=== PATIENT | male | born 1980 | race Caucasian/White ===

== ENCOUNTER → 2025-01-23 13:14 | Outpatient (REF) | payer MEDICARE, SELFPAY | LOC: RAD 13:14 | PROVIDERS: ATTENDING PHYSICIAN Emergency Medicine | DX: S93.492A Sprain of other ligament of left ankle, initial encounter (principal) | CPT/HCPCS: 73610 ==

== ENCOUNTER 2025-02-02 20:09 | Emergency (ER) | payer MEDICARE, MEDICAID, SELFPAY ==
[2025-02-02 20:17] VITALS: BP 129/80
--- NOTE | 2025-02-02 22:10 | ED.GENMED ---
History of Present Illness
General
Chief Complaint: Back Pain
Source: patient and health careers instructor
Time Seen by Provider: 02/02/25 21:24
History of Present Illness
History of Present Illness:
44-year-old male history of Down syndrome. Somewhat of a poor historian. Complaining of vague intermittent back pain. Apparently pain is worse with coughing. Not describing pain currently. No abdominal pain nausea vomiting fever urinary
symptoms or other complaints
Past History
Past History
ED Past Medical History: Hyperthyroidism and Other (Down syndrome)
ED Past Surgical History: None and Tonsilectomy
Social History
Tobacco: Non-smoker
Review of Systems
Review of Systems
All Other Systems: Not applicable
Constitutional: Denies fever
ABD/GI: Denies abdominal pain
: Reports no symptoms
Phy Exam
Physical Exam
Physical Exam:
GENERAL: Alert. Sequelae of Down syndrome
EYE: Orbits normal.
NECK: Supple
CARDIAC: Regular rate and rhythm without any obvious murmurs.
LUNGS: Clear breath sounds,normal
ABDOMEN: Soft, without focal tenderness or distention. No abdominal masses or pulsatile masses
NEUROLOGICAL: Alert and oriented , grossly non-focal
SKIN: Warm and dry, no rash or lesion, no discoloration, skin intact.
MUSCULOSKELETAL: No edema,no deformity.Good color. No lumbar tenderness. Gait is normal. No apparent pain with flexion. No CVA tenderness
PSYCH: Normal and appropriate interaction.
Course
Orders/Labs/Results
Orders:
Orders
02/02/25 21:33
CT Abd/pel Without Iv Or Oral Urgent
Comment:
Reason For Exam: Right lower back pain
02/02/25 22:19
CT Chest W/o Iv Contrast Urgent
Comment:
Reason For Exam: Mass/infiltrate by abdominal CT
02/02/25 23:11
Urinalysis Reflex To Culture Urgent
Date Specimen was Collected: 02/02/25
Time Specimen was Collected: 21:53
Urine Microscopic Reflex Cult Urgent
Abnormal Lab Results
02/02/25
23:11
Urine Ketones 3+ A
(Negative)
Urine Albumin (Reflex) 1+ A
(Neg - Trace)
Vital Signs
Initial and Last Documented VS:
Initial Vital Signs
Temp Pulse Resp BP Pulse Ox
98.7 F 101 17 129/80 99
02/02/25 20:17 02/02/25 20:17 02/02/25 20:17 02/02/25 20:17 02/02/25 20:17
Last Documented Vital Signs
Temp Pulse Resp BP Pulse Ox
98.7 F 101 17 129/80 99
02/02/25 20:17 02/02/25 20:17 02/02/25 20:17 02/02/25 20:17 02/02/25 20:17
MDM/Problems Addressed
Differential Diagnosis Includes:
Low suspicion for nonmuscular etiology of back pain. However patient is somewhat of a poor historian. Not clearly positional. Will check urine and CT for kidney stone. Highly doubt vascular issue.
*Radiology
Radiology exam reviewed: radiology read reviewed (Right lower lobe pneumonia)
*Pulse Oximetry
Patient hypoxic: no
*Critical Care Note
Total Time (30-74mins, 75-104mins- exclusive of procedures): Not Applicable
Update Note
Update Note:
Patient with right lower lobe pneumonia. He apparently has been coughing. This likely explains his back pain. Is in no respiratory distress and is nontoxic. Very reasonable for outpatient management. Will start dual coverage to cover atypicals
and atypicals
ED Attending Note
-
Portions of this chart may have been created with voice recognition software.� Occasional wrong word or��sound alike� substitutions may have occurred due to the inherent limitations of voice recognition software.
Discharge Plan
Departure
Patient Disposition: Home (Routine Discharge)
Date of Disposition: 02/02/25
Time of Disposition: 23:34
Patient with high blood pressure during this ER visit?: Yes
Discharge Problem:
Right lower lobe pneumonia, Back pain
Instructions: Low Back Pain (DC), Pneumonia in adults - Discharge instructions, BLOOD PRESSURE
Prescriptions:
New
cefdinir 300 mg capsule
300 mg PO BID 10 Days Qty: 20 0RF
azithromycin [Zithromax] 250 mg tablet
250 mg PO DAILY Qty: 4 0RF
No Action
amoxicillin-pot clavulanate 1 TABLET tablet
1 tab PO Q12 Qty: 14 0RF
Referrals:
Susie Cabrera, [Family Provider] - Follow up in 2-3 days
Activity Restrictions/Additional Instructions:
Get a chest x-ray done 2 to 4 weeks from now to make sure this has resolved
Interventions
Interventions:
*Risk Screen - Suicide Last Done: 02/02/25 20:23
*General Assessment Last Done: 02/02/25 20:21
*Neglect/Abuse Screening Last Done: 02/02/25 20:23
*ED COVID-19 Vaccine History Last Done: 02/02/25 20:23
ED-Musculoskeletal Assessment Last Done: 02/02/25 21:23
Discharge Date and Time
Print Language: BULGARIAN
[2025-02-02 23:15] LABS: Urine Albumin 1+ (Neg - Trace); Urine Bilirubin Negative (Negative); Urine Character Clear (Clear); Urine Color Yellow; Urine Glucose Negative (Negative); Urine Ketone 3+ (Negative); Urine Leukocyte Negative (Negative); Urine Nitrite Negative (Negative); Urine Occult Blood Negative (Negative); Urine Urobilinogen Negative (Neg - 1+)
[2025-02-02 23:46] LABS: Urine Mucus Few
[2025-02-02] MEDS: ZITHROMAX 500 MG PO (23:47)
[2025-02-02] MEDS: OMNICEF 300 MG PO (23:47)
[2025-02-02 23:55] LABS: Urine Bacteria Moderate (Negative)
[2025-02-03 00:01] VITALS: BP 119/67
== END 2025-02-03 00:04 | disposition home or self-care (01) ==
LOC: EMR 20:09
PROVIDERS: EMERGENCY PHYSICIAN Emergency Medicine; FAMILY PHYSICIAN Family Medicine
DX: J18.9 Pneumonia, unspecified organism (principal); M54.9 Dorsalgia, unspecified; R03.0 Elevated blood-pressure reading, without diagnosis of hypertension; Q90.9 Down syndrome, unspecified
CPT/HCPCS: 99285; 71250; 74176; 81003; 81015; 87086

== ENCOUNTER 2025-02-04 08:33 | Inpatient (IN) | payer MEDICARE, MEDICAID, SELFPAY ==
[2025-02-04] VITALS (16 sets, daily range): BP systolic 89–163; BP diastolic 48–84; BMI 25.1
--- NOTE | 2025-02-04 05:05 | ED.GENMED ---
History of Present Illness
<Tierney Rhodes PA-C - Last Filed: 02/04/25 06:16>
General
Chief Complaint: Abdominal Pain
Source: patient
Exam Limitations: none
Time Seen by Provider: 02/04/25 05:04
Nursing documentation reviewed up to this point in time: agreed with
History of Present Illness
History of Present Illness:
44-year-old male with past medical history of Down syndrome, ADHD, GERD, gout, hypothyroidism, hypercholesterolemia presents emergency department today with concerns of right upper quadrant pain starting at 4:30 AM this morning. Of note, patient
had similar pain that would radiate to the to the right upper back starting 2 days ago with associated cough. He was seen in our emergency department and was found to have a right lower lobe infiltrate and started on cefdinir and azithromycin.
Patient is a limited historian and history primarily given by stitcher special machine. Machining Associate reports that patient has had this cough for few days now and as well as intermittent vague back pain that is worse with coughing. Patient did seem to complain of
occasional radiation to the abdomen at that time but caregiver states that the pain today awoken patient from sleep and he started to have some crying as well. Patient has not had any nausea or vomiting, diarrhea or constipation, he has no history
of prior abdominal surgeries, there is no one in the house who has similar symptoms. He has had no fevers or chills. He has had no chest pain or shortness of breath. He never had anything like this before according to caregiver. Caregiver denies
any medications other than the antibiotics. Of note, patient does have a family history of early coronary artery disease. Patient denies any upper back pain at this time.
Past History
<Tierney Rhodes PA-C - Last Filed: 02/04/25 06:16>
Past History
ED Past Medical History: Hyperthyroidism and Other (Down syndrome)
ED Past Surgical History: None and Tonsilectomy
Social History
Tobacco: Non-smoker
Review of Systems
<Tierney Rhodes PA-C - Last Filed: 02/04/25 06:16>
Review of Systems
All Other Systems: ROS reviewed and negative except as documented in HPI and ROS
Phy Exam
<Tierney Rhodes PA-C - Last Filed: 02/04/25 06:16>
Physical Exam
Physical Exam:
General: Patient appears uncomfortable secondary to pain; patient does not answer my questions, no speech currently
Skin: Warm and dry, no rashes or lesions
Head: Normocephalic, atraumatic
Eyes: Sclera non-icteric. EOMs intact.
Cardiac: Patient mildly tachycardic otherwise regular rhythm, no murmurs, no tenderness palpation of external chest wall
Peripheral Vascular: No lower extremity swelling or edema
Pulm: Normal respiratory effort, no wheezes, rales, or rhonchi
Abdomen: Right upper quadrant tenderness palpation with no guarding, no rebound tenderness, no palpable abdominal mass
Neuro: CN II-XII intact, no focal neurologic deficits.
Psychiatric: Appropriate mood and affect.
Course
<Tierney Rhodes PA-C - Last Filed: 02/04/25 06:16>
Orders/Labs/Results
Orders:
Orders
02/04/25 05:11
Ketorolac [Toradol] 15 mg IV NOW STA
02/04/25 05:12
Ondansetron Injectable [Zofran] 4 mg .ROUTE .STK-MED ONE
Ondansetron Injectable [Zofran] 4 mg IV NOW STA
02/04/25 05:17
Complete Blood Count/With Diff Urgent
Comprehensive Metabolic Panel Urgent
Lipase Urgent
02/04/25 05:19
Electrocardiogram (*1) Urgent
Reason for Study: Abdominal Pain
EKG- Treatment ONCE
02/04/25 05:20
US Abdomen Complete/Upper Urgent
Comment:
Reason For Exam: right upper quad pain, attn to gallbladder, kn sto
02/04/25 05:24
COVID-19 Antigen Urgent
Source: Nasal Swab
Troponin I Urgent
Influenza A+B Rapid Molecular Urgent
ALEXEY Source: Nasal Swab
Specimen Description:
02/04/25 05:52
0.9% Sodium Chloride 1000 ml [Nss] 1,000 ml IV BOLUS
02/04/25 05:55
CT Chest PE Study Urgent
Comment:
Reason For Exam: ruq pain, tachycardia
02/04/25 06:29
Urinalysis Reflex To Culture Urgent
Date Specimen was Collected: 02/04/25
Time Specimen was Collected: 06:22
Urine Microscopic Reflex Cult Urgent
Urine Culture Urgent
ALEXEY Source: U
Specimen Description:
Date Specimen was Collected: 02/04/25
Time Specimen was Collected: 06:22
02/04/25 07:18
Cefepime HCl [Maxipime] 2,000 mg IV NOW STA
Vancomycin 1 Gram/200 ml [Vancocin] 1 gram in 200 ml IV NOW
02/04/25 07:22
Lactated Ringers [Lr] 1,000 ml IV BOLUS
02/04/25 07:33
Blood Culture Q30M
ALEXEY Source: Blood/Venous
Specimen Description:
02/04/25 07:35
Lactic Acid Urgent
Blood Culture Q30M
ALEXEY Source: Blood/Venous
Specimen Description:
Abnormal Lab Results
02/04/25 02/04/25
05:17 06:29
WBC 13.3 H 10^3/uL
(4.8-10.8)
RBC 4.43 L 10^6/uL
(4.70-6.10)
MCH 31.2 H pg
(27.0-31.0)
Plt Count 548 H 10^3/uL
(130-400)
Abs Immat Gran (auto) 0.1 H 10^3/uL
(0-0.05)
Absolute Neuts (auto) 9.2 H 10^3/uL
(1.4-6.5)
Absolute Monos (auto) 1.1 H 10^3/uL
(0.1-0.6)
Glucose 154 H mg/dl
(70-99)
Urine Ketones 2+ A
(Negative)
Urine Bacteria (Reflex) Moderate A
(Negative)
Urine Albumin (Reflex) 2+ A
(Neg - Trace)
02/04/25 05:17
02/04/25 05:17
Vital Signs
Initial and Last Documented VS:
Initial Vital Signs
Temp Pulse Resp BP Pulse Ox
98.1 F 114 24 163/84 95
02/04/25 04:56 02/04/25 04:56 02/04/25 04:56 02/04/25 04:56 02/04/25 04:56
Last Documented Vital Signs
Temp Pulse Resp BP Pulse Ox
98.1 F 98 30 102/68 96
02/04/25 04:56 02/04/25 07:45 02/04/25 07:45 02/04/25 07:24 02/04/25 07:45
<Wendy Perez, DO - Last Filed: 02/04/25 06:12>
Orders/Labs/Results
Orders:
Orders
02/04/25 05:11
Ketorolac [Toradol] 15 mg IV NOW STA
02/04/25 05:12
Ondansetron Injectable [Zofran] 4 mg .ROUTE .STK-MED ONE
Ondansetron Injectable [Zofran] 4 mg IV NOW STA
02/04/25 05:17
Complete Blood Count/With Diff Urgent
Comprehensive Metabolic Panel Urgent
Lipase Urgent
02/04/25 05:19
Electrocardiogram (*1) Urgent
Reason for Study: Abdominal Pain
EKG- Treatment ONCE
02/04/25 05:20
US Abdomen Complete/Upper Urgent
Comment:
Reason For Exam: right upper quad pain, attn to gallbladder, kn sto
02/04/25 05:24
COVID-19 Antigen Urgent
Source: Nasal Swab
Troponin I Urgent
Influenza A+B Rapid Molecular Urgent
ALEXEY Source: Nasal Swab
Specimen Description:
02/04/25 05:52
0.9% Sodium Chloride 1000 ml [Nss] 1,000 ml IV BOLUS
02/04/25 05:55
CT Chest PE Study Urgent
Comment:
Reason For Exam: ruq pain, tachycardia
02/04/25 06:29
Urinalysis Reflex To Culture Urgent
Date Specimen was Collected: 02/04/25
Time Specimen was Collected: 06:22
Urine Microscopic Reflex Cult Urgent
Urine Culture Urgent
ALEXEY Source: U
Specimen Description:
Date Specimen was Collected: 02/04/25
Time Specimen was Collected: 06:22
02/04/25 07:18
Cefepime HCl [Maxipime] 2,000 mg IV NOW STA
Vancomycin 1 Gram/200 ml [Vancocin] 1 gram in 200 ml IV NOW
02/04/25 07:22
Lactated Ringers [Lr] 1,000 ml IV BOLUS
02/04/25 07:33
Blood Culture Q30M
[facility]EX[facility]Y Source: Blood/Venous
Specimen Description:
02/04/25 07:35
Lactic Acid Urgent
Blood Culture Q30M
[facility]EXEY Source: Blood/Venous
Specimen Description:
Abnormal Lab Results
02/04/25 02/04/25
05:17 06:29
WBC 13.3 H 10^3/uL
(4.8-10.8)
RBC 4.43 L 10^6/uL
(4.70-6.10)
MCH 31.2 H pg
(27.0-31.0)
Plt Count 548 H 10^3/uL
(130-400)
Abs Immat Gran (auto) 0.1 H 10^3/uL
(0-0.05)
Absolute Neuts (auto) 9.2 H 10^3/uL
(1.4-6.5)
Absolute Monos (auto) 1.1 H 10^3/uL
(0.1-0.6)
Glucose 154 H mg/dl
(70-99)
Urine Ketones 2+ A
(Negative)
Urine Bacteria (Reflex) Moderate A
(Negative)
Urine Albumin (Reflex) 2+ A
(Neg - Trace)
02/04/25 05:17
02/04/25 05:17
Vital Signs
Initial and Last Documented VS:
Initial Vital Signs
Temp Pulse Resp BP Pulse Ox
98.1 F 114 24 163/84 95
02/04/25 04:56 02/04/25 04:56 02/04/25 04:56 02/04/25 04:56 02/04/25 04:56
Last Documented Vital Signs
Temp Pulse Resp BP Pulse Ox
98.1 F 98 30 102/68 96
02/04/25 04:56 02/04/25 07:45 02/04/25 07:45 02/04/25 07:24 02/04/25 07:45
<LASHAWN Foy Jr.C - Last Filed: 02/04/25 07:49>
Orders/Labs/Results
Orders:
Orders
02/04/25 05:11
Ketorolac [Toradol] 15 mg IV NOW STA
02/04/25 05:12
Ondansetron Injectable [Zofran] 4 mg .ROUTE .STK-MED ONE
Ondansetron Injectable [Zofran] 4 mg IV NOW STA
02/04/25 05:17
Complete Blood Count/With Diff Urgent
Comprehensive Metabolic Panel Urgent
Lipase Urgent
02/04/25 05:19
Electrocardiogram (*1) Urgent
Reason for Study: Abdominal Pain
EKG- Treatment ONCE
02/04/25 05:20
US Abdomen Complete/Upper Urgent
Comment:
Reason For Exam: right upper quad pain, attn to gallbladder, kn sto
02/04/25 05:24
COVID-19 Antigen Urgent
Source: Nasal Swab
Troponin I Urgent
Influenza A+B Rapid Molecular Urgent
[facility]EY Source: Nasal Swab
Specimen Description:
02/04/25 05:52
0.9% Sodium Chloride 1000 ml [Nss] 1,000 ml IV BOLUS
02/04/25 05:55
CT Chest PE Study Urgent
Comment:
Reason For Exam: ruq pain, tachycardia
02/04/25 06:29
Urinalysis Reflex To Culture Urgent
Date Specimen was Collected: 02/04/25
Time Specimen was Collected: 06:22
Urine Microscopic Reflex Cult Urgent
Urine Culture Urgent
ALEXEY Source: U
Specimen Description:
Date Specimen was Collected: 02/04/25
Time Specimen was Collected: 06:22
02/04/25 07:18
Cefepime HCl [Maxipime] 2,000 mg IV NOW STA
Vancomycin 1 Gram/200 ml [Vancocin] 1 gram in 200 ml IV NOW
02/04/25 07:22
Lactated Ringers [Lr] 1,000 ml IV BOLUS
02/04/25 07:33
Blood Culture Q30M
[facility] Source: Blood/Venous
Specimen Description:
02/04/25 07:35
Lactic Acid Urgent
Blood Culture Q30M
[facility] Source: Blood/Venous
Specimen Description:
Abnormal Lab Results
02/04/25 02/04/25
05:17 06:29
WBC 13.3 H 10^3/uL
(4.8-10.8)
RBC 4.43 L 10^6/uL
(4.70-6.10)
MCH 31.2 H pg
(27.0-31.0)
Plt Count 548 H 10^3/uL
(130-400)
Abs Immat Gran (auto) 0.1 H 10^3/uL
(0-0.05)
Absolute Neuts (auto) 9.2 H 10^3/uL
(1.4-6.5)
Absolute Monos (auto) 1.1 H 10^3/uL
(0.1-0.6)
Glucose 154 H mg/dl
(70-99)
Urine Ketones 2+ A
(Negative)
Urine Bacteria (Reflex) Moderate A
(Negative)
Urine Albumin (Reflex) 2+ A
(Neg - Trace)
02/04/25 05:17
02/04/25 05:17
Vital Signs
Initial and Last Documented VS:
Initial Vital Signs
Temp Pulse Resp BP Pulse Ox
98.1 F 114 24 163/84 95
02/04/25 04:56 02/04/25 04:56 02/04/25 04:56 02/04/25 04:56 02/04/25 04:56
Last Documented Vital Signs
Temp Pulse Resp BP Pulse Ox
98.1 F 98 30 102/68 96
02/04/25 04:56 02/04/25 07:45 02/04/25 07:45 02/04/25 07:24 02/04/25 07:45
<Tierney Rhodes PA-C - Last Filed: 02/04/25 06:16>
MDM/Problems Addressed
Differential Diagnosis Includes:
Pleurisy secondary to pneumonia, PE, cholecystitis, biliary colic, ACS, gastritis, pancreatitis
MDM/Problems Addressed:
US of the abdomen and CT PE study pending
6:16 AM--case signed out to Chepe Gonzalez PA-C
Chronic conditions affecting care:
GERD, hypothyroidism, ADHD, down syndrome
<Tierney Rhodes PA-C - Last Filed: 02/04/25 06:16>
*Pulse Oximetry
Patient hypoxic: no
*EKG
Interpreted by ED Provider?: Yes
EKG Intrepretation Date: 02/04/25
Interpretation: abnormal
Comparison EKG: no comparison EKG present
Heart Rate: 116
Rate: tachycardiac
Rhythm: sinus
Barron: normal axis
Interval: normal interval
QRS Pattern: normal QRS
Ischemia: no ischemia
*Risk Control Analyst Interpretation
Rate: tachycardiac
Interpretation: abnormal
Heart Rate: 110
Rhythm: sinus
*Critical Care Note
Total Time (30-74mins, 75-104mins- exclusive of procedures): Not Applicable
Data Reviewed
Review of Other/Old Records Reveals: Records
<Tierney Rhodes PA-C - Last Filed: 02/04/25 06:16>
Update Note
Update Note:
5:50 AM--Patient does appear markedly more comfortable with toradol
<Chepe Gonzalez Jr., PA-C - Last Filed: 02/04/25 07:49>
Update Note
Update Note:
5:50 AM--Patient does appear markedly more comfortable with toradol
7:20 ES///: Patient CT report showing severe pneumonia with abscess. Patient was started on IV antibiotics plan to admit. Blood pressure did drop into the 80s systolic. He was given additional liter of fluid with improving blood pressure into the
100s. Patient in no distress at time of reassessment. Heart rate in the 90s. Blood cultures and lactic acid sent prior to antibiotics.
ED Attending Note
<Tierney Rhodes PA-C - Last Filed: 02/04/25 06:16>
-
Portions of this chart may have been created with voice recognition software.� Occasional wrong word or��sound alike� substitutions may have occurred due to the inherent limitations of voice recognition software.
<Wendy Perez DO - Last Filed: 02/04/25 06:12>
ED Attending Note
Patient seen and examined by attending physician: Yes
I performed a history and physical exam of patient and discussed management with resident, I reviewed resident's note and agree with documented findings and plan of care.: Yes
ED Attending Note:
This is a 44-year-old gentleman with history of Down syndrome, ADD, GERD, hypothyroidism, hyperlipidemia, gout.
Evaluated in this ED evening of February 02 with complaints of intermittent right-sided back pain, and intermittent cough. Back pain worsens with cough.
Noncontrast CT of the chest as well as CT of the abdomen and pelvis yesterday revealed right lower lobe pneumonia. Incidental 3 mm intrarenal stones bilaterally.
Discharged to home with prescription for Zithromax and cefdinir.
Returns this morning after waking around 430 with cough, right upper quadrant pain. He arrives accompanied by a stitcher special machine.
Intermittent cough with gagging but no reported vomiting. Appetite has been good.
Due to intellectual disabilities, history is markedly limited.
Home medications include: Levothyroxine, Concerta, vitamin D/vitamin C, omeprazole.
44-year-old gentleman with typical Down's features. He is awake and alert, follows some simple commands. Intermittently verbal�stuttering speech, appears to be somewhat preoccupied with bilateral lower extremities, pointing to mild discrepancy in
vague brownish discoloration of left anterior james that is mildly more pronounced than right anterior james.
Intermittent cough is noted but no respiratory distress.
Borderline low-grade fever, sinus tachycardia noted, mild systolic hypertension.
Lungs with decreased breath sounds right base with fine crackles right base.
Abdomen is soft without appreciable tenderness. Mild tenderness to palpation right anterolateral distal costal margin.
I suspect right upper quadrant pain related to right lower lobe pneumonia but must consider right ureteric stone/right hydronephrosis.
Other consideration is ACS, biliary colic, pancreatitis, gastroenteritis/adverse reaction to oral antibiotics.
CAT scan images from yesterday reviewed, moderate wedge-shaped/pleural based right lower lobe infiltrate. Thus concern for PE with pulmonary infarct.
Patient has been medicated for pain and nausea, will initiate IV fluids, will plan for abdominal ultrasound and plan for CT of the chest/PE study.
Labs are pending.
EKG shows sinus tachycardia otherwise unremarkable.
Discharge Plan
Departure
Patient Disposition: Admit
Date of Disposition: 02/04/25
Time of Disposition: 07:47
Admit to: IMU
Admit to doctor: [facility]
Presentation/result/management discussed w/ accepting MD/DO: Hospitalist
Patient with high blood pressure during this ER visit?: No
Condition: Fair
Covid-19: Not Applicable
Discharge Problem:
Abscess of lung with pneumonia
Prescriptions:
No Action
amoxicillin-pot clavulanate 1 TABLET tablet
1 tab PO Q12 Qty: 14 0RF
cefdinir 300 mg capsule
300 mg PO BID 10 Days Qty: 20 0RF
azithromycin [Zithromax] 250 mg tablet
250 mg PO DAILY Qty: 4 0RF
Referrals:
Susie Cabrera DO [Family Provider] -
Interventions
Interventions:
*Risk Screen - Suicide Last Done: 02/04/25 04:56
EJ-Ufxshr-Pjicnoayzt Assessment Last Done: 02/04/25 05:35
Discharge Date and Time
Print Language: SYRIAC
[2025-02-04] MEDS: ZOFRAN 4 MG IV (05:13)
[2025-02-04] MEDS: TORADOL 15 MG IV (05:14)
[2025-02-04 05:33] LABS: % Eosinophils 0.4 % (0-6); % Immature Granulocytes 0.5 % (0-0.5); % Lymphocytes 20.5 % (20.5-51.1); % Monocytes 8.2 % (1.7-9.3); % Neutrophils 69.4 % (42.2-75.2); Absolute Basophils 0.1 10^3/uL (0-0.2); Absolute Eosinophils 0.1 10^3/uL (0-0.7); Absolute Immature Granulocytes 0.1 10^3/uL (0-0.05); Absolute Lymphocytes 2.7 10^3/uL (1.2-3.4); Absolute Monocytes 1.1 10^3/uL (0.1-0.6); Absolute Neutrophils 9.2 10^3/uL (1.4-6.5); Hematocrit 41.4 % (39.0-52.0); Hemoglobin 13.8 g/dL (13.0-18.0); Mean Corp Hgb Conc. 33.3 g/dL (33.0-37.0); Mean Corpuscular Hgb 31.2 pg (27.0-31.0); Mean Corpuscular Volume 93.5 fL (80.0-94.0); Nucleated Red Blood Cells % 0 % (-); Platelet Count 548 10^3/uL (130-400); Red Blood Cell Count 4.43 10^6/uL (4.70-6.10); Red Cell Dist. Width 12.8 % (11.5-14.5); White Blood Cell Count 13.3 10^3/uL (4.8-10.8)
[2025-02-04 05:44] LABS: ALT (SGPT) 23 U/L (0-50); AST (SGOT) 23 U/L (17-59); Albumin 3.6 g/dl (3.5-5.0); Alkaline Phosphatase 83 U/L (38-126); Blood Urea Nitrogen 16 mg/dl (9-20); Calcium 9.2 mg/dl (8.4-10.2); Carbon Dioxide 29 mmol/L (22-30); Chloride 100 mmol/L (98-107); Estimated Creatinine Clearance 67 ml/min; Glucose 154 mg/dl (70-99); Lipase 87 U/L (23-300); Potassium 4.1 mmol/L (3.5-5.1); Sodium 140 mmol/L (135-145); Total Bilirubin 0.7 mg/dl (0.2-1.3); Total Protein 6.8 g/dl (6.3-8.2); eGFR > 60.00
[2025-02-04] MEDS: NSS 1000 IV (05:53)
[2025-02-04 06:00] LABS: COVID-19 Antigen Negative (Negative)
[2025-02-04 06:03] LABS: Troponin I < 0.012 ng/ml
[2025-02-04 06:47] LABS: Urine Albumin 2+ (Neg - Trace); Urine Bilirubin Negative (Negative); Urine Character Clear (Clear); Urine Color Yellow; Urine Glucose Negative (Negative); Urine Ketone 2+ (Negative); Urine Leukocyte Negative (Negative); Urine Nitrite Negative (Negative); Urine Occult Blood Negative (Negative); Urine Urobilinogen Negative (Neg - 1+)
[2025-02-04 07:12] LABS: Urine Amorphous Seen; Urine Bacteria Moderate (Negative); Urine Mucus Moderate; Urine Red Blood Cell 0-2 /HPF (0-2); Urine White Cell 0-2 /HPF (0-5)
[2025-02-04] MEDS: MAXIPIME 2000 MG IV (07:39)
[2025-02-04] MEDS: LR 1000 IV (07:39)
[2025-02-04 08:00] LABS: Lactic Acid 0.8 mmol/L (0.7-2.0)
--- NOTE | 2025-02-04 08:08 | HPS.HSE ---
Family Physician
-
Family Physician: Susie Cabrera
Chief Complaint
-
Right-sided chest pain for few days duration
History of Present Illness
44 years old male with Down syndrome presented with his caregiver and father from home. They reported that patient was dealing with upper respiratory infection and was taking oral antibiotics at home. Patient visited the ER on 02/02/25 and was given
prescription for cefdinir, Augmentin and Zithromax. He continued to have right sided chest pain/back pain/dry cough. In the ER, he was found to have leukocytosis. Imaging studies showed right sided pneumonia with developing pulmonary abscess.
Father reported that swallowing was no issue but had GERD. No nausea or vomiting, one-time diarrhea.
Medical History
Past Medical History
Past Medical History: Reports Other (Thyroid disease, Down syndrome, gout.)
Past Surgical History: Reports Other (No recent major surgery)
Social History
Tobacco: Non-smoker
Alcohol: None
Drug: None
Personal: Single
Living: With Family
Employment: Disabled
Family History
Family History: Not pertinent
Allergies / Home Medications
Allergies reflects when Allergies were last updated in [facility].
Home Medications with original date entered in [facility]
Allergy/Medication List:
Allergies
Allergy/AdvReac Type Severity Reaction Status Date / Time
allopurinol Allergy Unknown Verified 02/04/25 04:55
Home Medications
ascorbic acid (vitamin C) 500 mg tablet (Vitamin C) 500 mg PO DAILYPRN PRN when feeling ill 02/04/25
calcium 200 mg (as citrate)-vitamin D3 6.25 mcg (250 unit) tablet 1 tab PO NOON 02/04/25
carbamide peroxide 6.5 % ear drops 2 drp EACH EAR TIDPRN PRN ear wax 02/04/25
cholecalciferol (vitamin D3) 50 mcg (2,000 unit) tablet 50 mcg PO DAILY 02/04/25
colchicine 0.6 mg tablet 0.6 mg PO DAILY 02/04/25
ketoconazole 2 % topical cream 1 applic topical BIDPRN PRN for flares until clear 02/04/25
levothyroxine 137 mcg tablet 137 mcg PO MOTUWETHFRSA 02/04/25
methylphenidate HCl 27 mg tablet,extended release 24 hr 27 mg PO DAILY 02/04/25
Review of Systems
-
Unable to obtain full review of systems at this time due to: Other (Patient has developmental delay and unable to do review of systems)
Physical Exam
Vital Signs
Vital Signs
Temp Pulse Resp BP Pulse Ox
98.1 F 98 30 102/68 96
02/04/25 04:56 02/04/25 07:45 02/04/25 07:45 02/04/25 07:24 02/04/25 07:45
Physical Exam
General: No Apparent Distress and Comfortable
HEENT: Moist mucous membranes and Atraumatic
Respiratory: Rales
Cardiac: S1/S2
GI: Soft, Non Tender and Non Distended
Rectal: No Maroon Stools
Genito-urinary: No Membreno
Musculoskeletal: No Clubbing, No Cyanosis and No Edema
Skin: Warm and Dry; No Jaundice
Neuro: Alert and Oriented
Psych: Calm; No Agitated
Laboratory Results
-
02/04/25 05:17
02/04/25 05:17
Laboratory Results
Lactic Acid 0.8 mmol/L (0.7-2.0) 02/04/25 07:35
Total Bilirubin 0.7 mg/dl (0.2-1.3) 02/04/25 05:17
AST 23 U/L (17-59) 02/04/25 05:17
ALT 23 U/L (0-50) 02/04/25 05:17
Alkaline Phosphatase 83 U/L (38-126) 02/04/25 05:17
Troponin I < 0.012 ng/ml 02/04/25 05:24
Lipase 87 U/L (23-300) 02/04/25 05:17
Impression/Plan
-
44 years old male with Down syndrome presented with right sided pneumonia
# Sepsis, Septic shock ( mild) present on admission with tachycardia, leukocytosis and pneumonia.
# Community-acquired pneumonia
Family denied history of swallowing difficulty or choking. Does have history of GERD.
CAT scan showed right lower lobe pneumonia with central 3.4 cm pulmonary abscess
Admit the patient to the hospital
Start the patient on broad-spectrum antibiotic
Negative COVID and influenza screen
Urine for Streptococcus and Legionella
Blood culture
Dry cough with no sputum per family
Tylenol for pleuritic chest pain
No hypoxia reported
Tessalon/Robitussin for cough
Follow-up with ID and pulmonary recommendation
# Nausea
will give PRN Zofran
# GERD, will give PPI
# Hypothyroidism, continue Synthroid
# Down syndrome/ Attention and concentration deficit
Continue home medications
# Gout, continue colchicine
Total time spent to see the patient, examine the patient, review data and lab results, discuss treatment plan with patient, nursing staff, ER doctor around 75 minutes. �
[2025-02-04] MEDS: VANCOCIN 530 MG IV (08:21)
--- NOTE | 2025-02-04 11:06 | CM ---
Met patient and his father, Ed in room. Father explained that patient resides in a [employer] apartment with Yovany Vazquez. Yovany is not his legal guardian but a support to him. Marty's parents Ed and Jocelin are his legal guardians.
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 He gets a ride in a van that Shared Support arranges.
PCP : Dr. Susie Cabrera
Pharmacy: [facility]
Marty's father said he did not think [employer] would need to approve his return to his apartment. CM gave CM office card to father to give the CM phone number to [employer] branch manager if they have any concerns about Marty's return home.
Marty does not use DME, no history of SNF or VNA.
PLAN: return home.
[2025-02-04] MEDS: FLAGYL 500 MG 100 IV (12:06)
--- NOTE | 2025-02-04 13:55 | CON.PUL ---
Consultation
Consultation Request
Date/Time Consultation Requested: 02/04/2025
Date/Time Consultation Performed: 02/04/2025
Requesting Provider: Herminia Hirsch
Performing Provider: Liane Irwin
Reason for Consultation: Cough, lung abscess
Medical History
-
Chief Complaint: Cough, right sided pleuritic pain
History of Present Illness:
Patient is a very pleasant 44-year-old gentleman with Down syndrome who was seen in the emergency room accompanied by his father, mother and sister. Patient reportedly has been dealing with cough for close to 2 weeks now. It started with upper
respiratory kind of symptoms. Patient was recently seen in the emergency room on 02 February and was noted to have right lower lobe pneumonia on CT scan. He was started on Augmentin and Zithromax and cefdinir. Patient continued to have cough with
significant right-sided pleuritic chest discomfort particularly with coughing which brought him back to the emergency room. He had a repeat CT done with contrast which was negative for any pulmonary embolism but did show trace pleural effusion
along with right lower lobe pneumonia with developing pulmonary abscess. Pulmonary consultation was requested for further recommendations.
On further review, no reported recent dental work or dental abscess. Patient denies any mouth pain. Reported longstanding history of gastroesophageal reflux disease managed with proton pump inhibitors. Patient also reports occasional dysphagia
particularly to larger bites which she reports that he has to water down. Reported history of Polo's esophagus and Schatzki rings in the past and recent esophageal dilation as per patient's mother, I do not have access to these records. Family
reports that they have noticed at times patient will cough while eating.
Past Medical History: Reports Other (Thyroid disease, Down syndrome, gout.)
Past Surgical History: Reports Other (No recent major surgery)
Social History
Tobacco: Non-smoker
Alcohol: None
Drug: None
Personal: Single
Living: With Family
Employment: Disabled
Family History
Family History: Not pertinent
Allergies / Home Medications
Allergies
Allergy/AdvReac Type Severity Reaction Status Date / Time
allopurinol Allergy Unknown Verified 02/04/25 04:55
Home Medications
�Medication �Instructions �Recorded �Confirmed �Last Taken �Type
ascorbic acid (vitamin C) 500 mg 500 mg PO DAILYPRN PRN when 02/04/25 02/04/25 Unknown History
tablet (Vitamin C) feeling ill
calcium 200 mg (as 1 tab PO NOON 02/04/25 02/04/25 Unknown History
citrate)-vitamin D3 6.25 mcg (250
unit) tablet
carbamide peroxide 6.5 % ear drops 2 drp EACH EAR TIDPRN PRN ear wax 02/04/25 02/04/25 Unknown History
cholecalciferol (vitamin D3) 50 50 mcg PO DAILY 02/04/25 02/04/25 Unknown History
mcg (2,000 unit) tablet
colchicine 0.6 mg tablet 0.6 mg PO DAILY 02/04/25 02/04/25 Unknown History
ketoconazole 2 % topical cream 1 applic topical BIDPRN PRN for 02/04/25 02/04/25 Unknown History
flares until clear
levothyroxine 137 mcg tablet 137 mcg PO MOTUWETHFRSA 02/04/25 02/04/25 Unknown History
methylphenidate HCl 27 mg 27 mg PO DAILY 02/04/25 02/04/25 Unknown History
tablet,extended release 24 hr
Review of Systems
-
Hematologic/Lymphatic: Other (All 14 systems reviewed and negative except as stated above in the history of present illness.)
Vitals / Labs / Diagnostic Testing
Vital Signs
Temp Pulse Resp BP Pulse Ox
98.1 F 91 23 119/52 94
02/04/25 04:56 02/04/25 13:01 02/04/25 12:15 02/04/25 13:01 02/04/25 12:51
Lab Data
02/04/25 05:17
02/04/25 05:17
Microbiology
02/04/25 05:24 Nasal Swab Influenza Types A & B ([facility]) - Final
Negative for Influenza A & B, NAAT
Negative results must be combined with clinical observations
and patient history.
Nucleic Acid Amplification test (NAAT)performed on the
[employer] platform.
Diagnostic Testing:
Physical Exam
-
HEENT: Normocephalic
Cardiovascular: S1/S2
Respiratory: Other (Pleuritic discomfort on right side with cough ) and Other (Decreased air entry, right lower lobe )
GI: Soft and Non Distended
Neurology: Awake and Alert
Skin: Warm
General: Comfortable
Assessment
-
#1. Right lower lobe necrotizing pneumonia with intra-pulmonary abscess. Suspect patient has underlying aspiration with resultant right lower lobe pneumonia with pulmonary abscess.
-Continue vancomycin and cefepime, add IV Flagyl
-Send sputum cultures, Legionella and pneumococcal antigen, blood cultures
-Considering the size of abscess, favor conservative management first with IV antibiotics
-Will arrange out patient follow up with Pulmonary Clinic after discharge
#2. Trace right-sided pleural effusion with Pleurisy
-Effusion is likely parapneumonic. Currently too small for a safe thoracentesis
-If effusion grows in coming days, will need thoracentesis and fluid analysis
-Toradol as needed for pain
-No PE noted
#3. GERD with reported dysphagia. Reported history of Polo's esophagus, Schatzki ring s/p esophageal dilation and chronic PPI therapy. Per family, patient at times coughs while eating. Patient reports dysphagia to larger bites and having to
water down the food at times.
-This might be etiology of patient's pulmonary process
-Recommend soft diet for now
-Speech therapy evaluation
-Likely will need barium swallow or esophagram
-PPI BID for now
Updated patient's parents and sister at bedside
Total time spent on this consultation/encounter __65__ minutes which includes review of history, physical exam, medications, laboratory data, personal review of imaging, extensive review of outpatient records, discussion with care team and
respiratory therapy.
Data:
CT CHEST: 02/2025: 1. SEVERE RIGHT LOWER LOBE PNEUMONIA containing a central 3.4 cm pulmonary abscess.
2. New mild to moderate acute interstitial and alveolar pulmonary edema.
3. New small right pleural effusion.
4. Mildly decreased bilateral lung volumes.
--- NOTE | 2025-02-04 16:20 | CON.ID ---
Consultation
-
Date/Time Consultation Requested: 02/04/2025 1143
Date/Time Consultation Performed: 02/04/25 1550
Requesting Provider: Dr. Hirsch
Performing Provider: Dr. Currie
Reason for Consultation: Left lower lobe pneumonia; suspected pulmonary abscess
Chief Complaint / Past History
History of Present Illness
Marty Hood is a 44-year-old man with a significant past medical history of Down syndrome being evaluated at the request of Dr. Hirsch in regards to a right lower lobe pneumonia and suspected evolving abscess. History is obtained from chart
review, along with patient interview. Additional history was obtained from the patient's mother and father who are present at the bedside.
The patient lives with a roommate, and was in his usual state of health until approximately 2 weeks prior when he developed a upper respiratory tract infection. Symptoms included cough and congestion. The parents recall that around the time he
developed a severe coughing fit. He continued on over the next 2 weeks, but earlier this week he developed progressive discomfort in his right posterior thorax. He was seen here in the ER on, and diagnosed with pneumonia. He was discharged
on cefdinir and Azithromycin. Despite antibiotic therapy he developed increasing discomfort in the right back area and presented back to the ER for further care.
There has been no history of fevers. He admits to cough but denies significant sputum production. He states that it often will just sit in his mouth. There has been no history of hemoptysis.
Workup in the ER revealed a leukocytosis. CT imaging has revealed a progressive right lower lobe infiltrate. Infection medicine is asked to comment upon further antimicrobial management.
Past History
Additional Past Medical History:
Down syndrome
Hypothyroidism
Gout
GERD
Additional Past Surgical History:
Multiple ENT surgeries
Allergy History:
allopurinol Allergy (Verified 02/04/25 04:55)
Unknown
Medications Reviewed: Yes
Current Antibiotics:
Vancomycin
Cefepime
Metronidazole
Social History
Tobacco: Non-Smoker
Alcohol: None
Drug: None
Personal: Single
Living: With Family
Employment: Disabled
Family History
Family History: Not Pertinent
Review of Systems
Vital Signs
Temp Pulse Resp BP Pulse Ox
98.1 F 88 23 96/73 88
02/04/25 04:56 02/04/25 15:30 02/04/25 12:15 02/04/25 15:00 02/04/25 15:30
Physical Exam
Physical Exam
Constitutional: No Acute Distress, Comfortable and Non-toxic
Head: Normocephalic
Eyes: Pupils Equal, Pupils Round, No Conjunctival Hemorrhage and Sclera Anicteric
Oral: No Thrush and No Ulcers
Cardiovascular: S1/S2; Negative S3/S4
Pulmonary: Rhonchi (Scattered on right side), Coarse and Other (Decreased breath sounds right base)
Gastrointestinal: Soft, Non Tender, Non Distended and Normal Bowel Sounds
Extremities: Negative Edema, Cyanosis or Erythema
Neurological: Awake and Alert
Psychological: Calm
Lab / Diagnostic Study Results
02/04/25 05:17
02/04/25 05:17
Abs Immat Gran (auto) 0.1 10^3/uL (0-0.05) H 02/04/25 05:17
Absolute Neuts (auto) 9.2 10^3/uL (1.4-6.5) H 02/04/25 05:17
Absolute Lymphs (auto) 2.7 10^3/uL (1.2-3.4) 02/04/25 05:17
Absolute Monos (auto) 1.1 10^3/uL (0.1-0.6) H 02/04/25 05:17
Absolute Basos (auto) 0.1 10^3/uL (0-0.2) 02/04/25 05:17
Immature Gran % 0.5 % (0-0.5) 02/04/25 05:17
Neutrophils % 69.4 % (42.2-75.2) 02/04/25 05:17
Lymphocytes % 20.5 % (20.5-51.1) 02/04/25 05:17
Monocytes % 8.2 % (1.7-9.3) 02/04/25 05:17
Eosinophils % 0.4 % (0-6) 02/04/25 05:17
Basophils % 1.0 % (0-2) 02/04/25 05:17
Lactic Acid 0.8 mmol/L (0.7-2.0) 02/04/25 07:35
Ur Squamous Epith Cells 11-15 /LPF (Few) 02/04/25 06:29
Microbiology Results
Micro:
02/04/25 07:35 Blood Culture - Pending
Blood/Venous
02/04/25 07:33 Blood Culture - Pending
Blood/Venous
02/04/25 06:29 Urine Culture - Pending
Urine
02/04/25 05:24 Influenza Types A & B ([facility]) - Final
Nasal Swab Negative for Influenza A & B, NAAT
Negative results must be combined with clinical observations
and patient history.
Nucleic Acid Amplification test (NAAT)performed on the
[employer] platform.
Imaging:
02/04/25 CT chest with contrast: Severe right lower lobe pneumonia containing a central 3.4 cm pulmonary abscess. New mild to moderate acute interstitial and alveolar pulmonary edema. New small right pleural effusion noted. Mildly decreased
bilateral lung volumes. Please see full dictation for additional detail.
Assessment / Plan
Right lower lobe pneumonia
Suspected evolving pulmonary abscess
Leukocytosis
Thrombocytosis
Hx Down syndrome
Thyroid disease
Gout
Hx GERD
Recommendations:
Pneumonia may be associated with recent viral infection (?Antecedent mild case of influenza), or may be secondary to aspiration given history of GERD.
Continue vancomycin.
Narrow cefepime/metronidazole to Unasyn 3 g IV every 6 hours.
Monitor white count and temperature curve.
Sputum culture has been ordered.
MRSA screen has been ordered. If negative, further vancomycin can be discontinued.
Will need follow-up imaging to assess for clinical improvement.
--- NOTE | 2025-02-04 17:12 | PHA.VAN.IN ---
Assessment
- Assessment
Renal Function: Unknown baseline
Concomitant Antimicrobials: UNASYN
- Previous Dosing Experience
Previous Regimen: NONE
AUC Dosing Plan
- Dosing Variables
Dosing Weight (kg): 58.2
Dosing CrCl (ml/min): 67
Vd coefficient (L/kg): 0.7
- Empiric Dosing
Initial / Loading Dose: 1500MG
Maintenance Regimen: 500MG IV Q12H
Estimated AUC (mcg*h/mL): 421
Estimated Peak (mcg*h/mL): 23.9
Estimated Trough (mcg/ml): 12.4
Estimated Half Life (H): 11.5
Pharmacokinetics Vancomycin I
- -
Patient Age: 44
Patient Sex: Male
Vancomycin Day #: 1
Requesting Provider: LORETA
Height / Weight:
Height 5 ft
Actual Weight 58.2 kg
Pertinent Past Medical History: RECENT ER VISIT 02/02/25
- Vital Signs / Lab Results
Temp Pulse Resp BP Pulse Ox
98.1 F 96 23 117/50 91
02/04/25 04:56 02/04/25 16:45 02/04/25 12:15 02/04/25 16:00 02/04/25 16:45
Lab Results - Hematology
02/04/25
05:17
WBC 13.3 H
Lab Results - Chemistry
02/04/25
05:17
BUN 16
Creatinine 1.0
Estimated Creat Clear 67
Albumin 3.6
02/04/25
07:35
Lactic Acid 0.8
Lab Results - Urine
02/04/25
06:29
Urine Nitrite (Reflex) Negative
Leukocyte Esterase Rfl Negative
Urine WBC (Reflex) 0-2
Ur Squamous Epith Cells 11-15
Urine Bacteria (Reflex) Moderate A
Microbiology Results
02/04/25 05:24 Influenza Types A & B ([facility]) - Final
Nasal Swab Negative for Influenza A & B, NAAT
Negative results must be combined with clinical observations
and patient history.
Nucleic Acid Amplification test (NAAT)performed on the
[employer] platform.
[2025-02-04] MEDS: HEPARIN 5000 UNITS SC (19:57)
[2025-02-04] MEDS: UNASYN IV (19:57)
[2025-02-05] MEDS: UNASYN IV ×4 (00:34→17:07)
[2025-02-05] MEDS: SYNTHROID 137 MCG PO (04:50)
[2025-02-05] MEDS: VANCOCIN HCL 500 MG 100 IV ×2 (06:11→17:07)
[2025-02-05 07:30] VITALS: BP 140/77
[2025-02-05] MEDS: COLCHICINE 0.6 MG PO (07:40)
[2025-02-05] MEDS: HEPARIN 5000 UNITS SC ×2 (07:40→19:41)
[2025-02-05] MEDS: NON-FORMULARY ITEM 27 MG PO (08:02)
[2025-02-05 08:33] LABS: Hematocrit 37.6 % (39.0-52.0); Hemoglobin 12.7 g/dL (13.0-18.0); Mean Corp Hgb Conc. 33.8 g/dL (33.0-37.0); Mean Corpuscular Hgb 31.3 pg (27.0-31.0); Mean Corpuscular Volume 92.6 fL (80.0-94.0); Mean Platelet Volume 9.2 fL (7.4-10.4); Platelet Count 474 10^3/uL (130-400); Red Blood Cell Count 4.06 10^6/uL (4.70-6.10); White Blood Cell Count 13.2 10^3/uL (4.8-10.8)
--- NOTE | 2025-02-05 08:44 | W.PN.HOSP.TC ---
Today's Communication/Plan
-
IV ABx
Tylenol PRN wean off O2
Assessment / Plan
Assessment / Plan
Physical Exam
General: No Apparent Distress and Comfortable
HEENT: Moist mucous membranes and Atraumatic
Respiratory: Rales
Cardiac: S1/S2
GI: Soft, Non Tender and Non Distended
Rectal: No Maroon Stools
Genito-urinary: No Membreno
Musculoskeletal: No Clubbing, No Cyanosis and No Edema
Skin: Warm and Dry; No Jaundice
Neuro: Alert and Oriented
Psych: Calm; No Agitated
44 years old male with Down syndrome presented with right sided pneumonia
# Sepsis, Septic shock ( mild) present on admission with tachycardia, leukocytosis and pneumonia.
# Community-acquired pneumonia
Family denied history of swallowing difficulty or choking. Does have history of GERD.
CAT scan showed right lower lobe pneumonia with central 3.4 cm pulmonary abscess
c/w broad-spectrum antibiotic
Negative COVID and influenza screen
Negative Streptococcus and Legionella
Blood culture
Dry cough with no sputum per family
Tylenol for pleuritic chest pain
No hypoxia reported
Tessalon/Robitussin for cough
Follow-up with ID and pulmonary recommendation
# Pleuritic chest pain
PRN Tylenol
# GERD, PPI
# Hypothyroidism, continue Synthroid
# Down syndrome/ Attention and concentration deficit
Continue home medications
# Gout, continue colchicine
Total time spent to see the patient, examine the patient, review data and lab results, discuss treatment plan with patient, parents, nursing staff, around 55 minutes. �
Anticipated Discharge: > 48 hours
Subjective/Interval History
-
Date of Service: February 05, 2025
No fever
Objective Data
-
Labs:
Laboratory Results
02/05/25
08:00
WBC 13.2 H
Hgb 12.7 L
Hct 37.6 L
Plt Count 474 H
Vital Signs:
Vital Signs
Temp Pulse Resp BP Pulse Ox
99.4 F 96 16 119/72 93
02/04/25 23:00 02/04/25 23:00 02/04/25 23:00 02/04/25 23:00 02/04/25 23:00
--- NOTE | 2025-02-05 09:30 | PTCARENOTE ---
02/05- Patient's family stated, 'he can't breathe.' This RN came to find patient with skin=warm/pink/dry but accessory muscle use, tachypneic, shallow respirations with some agonal breathing beginning. Lung bases diminished with some crackles still
at R-base. POX=85% on RA with CM=356. Immediately applied 2L O2 and re-evaluated O2. O2 was still 87% on 2L with BV=785, and shallow tachypnea with accessory muscle use still present. Called Rapid Response and increased O2 to 4L. Blood
ufzqt=102; AI=312/100; EW=380; RR=22 and shallow; T=98.8; POX=94% on 4L. EKG obtained- currently shows Sinus Tachycardia. Continuing to monitor POX. POX is maintaining at 92-94% on 4L with HR maintaining at 112. PRN pain medication
administered as ordered as well.
[2025-02-05 09:41] LABS: Glucose - Point of Care 140 mg/dl (70-99)
--- NOTE | 2025-02-05 09:47 | PTOTSP ---
Dysphagia Evaluation
No signs concerning for oral/pharyngeal dysphagia. Cannot r/o silent aspiration bedside. Patient's caregiver denied signs of dysphagia prior to admission or repeated PNAs.
Recommend:
1. Regular, Thin liquids
2. Medications as best tolerated
3. Oral care 3x daily
4. General aspiration and reflux precautions
5. GI consult as appropriate given hx esophageal conditions
6. Video swallow study if concerned for silent aspiration
--- NOTE | 2025-02-05 10:08 | PHA.VAN.FU ---
Vancomycin Assessment / Plan
- Assessment
Renal Function: No New Labs Today (Yesterday 02/04 lab SCr1.0, CrCl 67)
WBC's are: Stable (13.2)
In the past 24 hrs, patient has been: Afebrile
Concomitant Antimicrobials: Ampicillin/Sulbactam
- Dosing Plan
Continue: Vanco 500mg Q12H
- Monitoring Plan
No level(s) ordered at this time: Consider in the next few days
Monitoring Comments: BUN & SCR ordered per protocol
- Follow Up
Pharmacy will continue to follow.
Vancomycin Follow UP
- -
Patient Age: 44
Patient Sex: Male
Vancomycin Day #: 2
Requesting Provider: LORETA
Height / Weight:
Height 5 ft
Actual Weight 58.2 kg
Pertinent Past Medical History: RECENT ER VISIT 02/02/25
- Vital Signs / Lab Results
Temp Pulse Resp BP Pulse Ox
99.5 F 98 16 140/77 92
02/05/25 07:30 02/05/25 07:30 02/05/25 07:30 02/05/25 07:30 02/05/25 07:30
Lab Results - Hematology
02/04/25 02/05/25
05:17 08:00
WBC 13.3 H 13.2 H
Lab Results - Chemistry
02/04/25
05:17
BUN 16
Creatinine 1.0
Estimated Creat Clear 67
Albumin 3.6
02/04/25
07:35
Lactic Acid 0.8
Microbiology Results
02/04/25 06:29 Urine Culture - Final
Urine NO GROWTH
02/04/25 07:35 Blood Culture - Preliminary
Blood/Venous No Growth in 24 hours- Final report to follow
02/04/25 07:33 Blood Culture - Preliminary
Blood/Venous No Growth in 24 hours- Final report to follow
02/04/25 05:24 Influenza Types A & B ([facility]) - Final
Nasal Swab Negative for Influenza A & B, NAAT
Negative results must be combined with clinical observations
and patient history.
Nucleic Acid Amplification test (NAAT)performed on the
[employer] platform.
[2025-02-05] MEDS: TYLENOL 1000 MG PO (10:14)
--- NOTE | 2025-02-05 11:23 | W.PN.ID1 ---
Date of Service
Date of Service: February 05, 2025
Today's Communication
Continue current antibiotics.
Assessment / Plan
Right lower lobe pneumonia
Suspected evolving pulmonary abscess
Leukocytosis
Thrombocytosis
Hx Down syndrome
Thyroid disease
Gout
Hx GERD
Recommendations:
Pneumonia may be associated with recent viral infection (?Antecedent mild case of influenza), or may be secondary to aspiration given history of GERD.
Continue vancomycin. MRSA screen has been ordered. If negative, further vancomycin can be discontinued.
Continue Unasyn 3 g IV every 6 hours.
Monitor white count and temperature curve.
Sputum culture has been ordered although no sample submitted as of yet.
Will need follow-up imaging to assess for clinical improvement.
����������������������������������������������������������
Chief Complaint
-: Pneumonia and Other (Suspected evolving pulmonary abscess)
Subjective / Review of Systems
Patient seen and examined. Patient with some increased thorax discomfort today.
Review of Systems: No Fever and No Chills
Vital Signs / Physical Exam
Vital Signs
Vital Signs
Temp Pulse Resp BP Pulse Ox
99.5 F 98 16 140/77 93
02/05/25 07:30 02/05/25 07:30 02/05/25 07:30 02/05/25 07:30 02/05/25 09:30
Physical Exam
Constitutional: No Acute Distress, Comfortable and Non-toxic
Eyes: Sclera Anicteric
Cardiovascular: S1/S2; Negative S3/S4
Pulmonary: Non Labored and Other (Decreased breath sounds right base)
Gastrointestinal: Soft and Non Tender
Extremities: Negative Edema, Clubbing or Cyanosis
Skin: Negative Rash
Neurological: Awake and Alert
Psychological: Calm
Objective Data
Lab Data
Lab Results
02/05/25 08:00
02/04/25 05:17
Estimated Creat Clear 67 ml/min 02/04/25 05:17
Lactic Acid 0.8 mmol/L (0.7-2.0) 02/04/25 07:35
Total Bilirubin 0.7 mg/dl (0.2-1.3) 02/04/25 05:17
AST 23 U/L (17-59) 02/04/25 05:17
ALT 23 U/L (0-50) 02/04/25 05:17
Alkaline Phosphatase 83 U/L (38-126) 02/04/25 05:17
Most recent labs reviewed.
Micro Results:
02/04/25 06:29 Urine Culture - Final
Urine NO GROWTH
02/04/25 07:35 Blood Culture - Preliminary
Blood/Venous No Growth in 24 hours- Final report to follow
02/04/25 07:33 Blood Culture - Preliminary
Blood/Venous No Growth in 24 hours- Final report to follow
02/05/25 04:56 MRSA Screen - Pending
Nose
02/04/25 05:24 Influenza Types A & B ([facility]) - Final
Nasal Swab Negative for Influenza A & B, NAAT
Negative results must be combined with clinical observations
and patient history.
Nucleic Acid Amplification test (NAAT)performed on the
[employer] platform.
Imaging:
02/04/25 CT chest with contrast: Severe right lower lobe pneumonia containing a central 3.4 cm pulmonary abscess. New mild to moderate acute interstitial and alveolar pulmonary edema. New small right pleural effusion noted. Mildly decreased
bilateral lung volumes. Please see full dictation for additional detail.
Care Review
Plan reviewed with: Physician (Pulmonary)
[2025-02-05 11:30] LABS: NT-proBNP 353 pg/ml
--- NOTE | 2025-02-05 13:59 | CM ---
CM reviewed chart, patient seen bedside with parents, report no needs to CM at this time. Rapid response called on patient earlier. Patient remains on IV antibiotics. CM will continue to follow for all discharge planning needs.
Plan; return home to apartment with Shared Support Agency
--- NOTE | 2025-02-05 14:37 | W.PN.PUL3 ---
Today's Communication / Plan
-
-Bedside US shows only a trace right sided pleural effusion
-Continue Vancomycin and Unasyn
-CT Chest with contrast on Saturday, 02/08
Assessment
-
#1. Right lower lobe necrotizing pneumonia with intra-pulmonary abscess. Suspect patient has underlying aspiration with resultant right lower lobe pneumonia with pulmonary abscess.
-Continue vancomycin and Unasyn per ID
-Await cultures
-Considering the size of abscess, favor conservative management first with IV antibiotics
-Will arrange out patient follow up with Pulmonary Clinic after discharge
-Plan for repeat CT on Saturday to evaluate response to Iv Antibiotics
#2. Trace right-sided pleural effusion with Pleurisy
-Effusion is likely parapneumonic.
-If effusion grows in coming days, will need thoracentesis and fluid analysis
-Toradol as needed for pain
-No PE noted
-02/05, I performed a bedside POCUS which showed a trace right sided effusion, not amenable to safe drainage. If progresses in coming days, will consider drainage
#3. GERD with reported dysphagia. Reported history of Polo's esophagus, Schatzki ring s/p esophageal dilation and chronic PPI therapy. Per family, patient at times coughs while eating. Patient reports dysphagia to larger bites and having to
water down the food at times.
-This might be etiology of patient's pulmonary process
-Recommend soft diet for now
-Speech therapy evaluation
-Likely will need barium swallow or esophagram
-PPI BID for now
Updated patient's mother at bedside
Total time spent on this consultation/encounter __42__ minutes which includes review of history, physical exam, medications, laboratory data, personal review of imaging, extensive review of outpatient records, discussion with care team and
respiratory therapy.
Data:
CT CHEST: 02/2025: 1. SEVERE RIGHT LOWER LOBE PNEUMONIA containing a central 3.4 cm pulmonary abscess.
2. New mild to moderate acute interstitial and alveolar pulmonary edema.
3. New small right pleural effusion.
4. Mildly decreased bilateral lung volumes.
Subjective Data
-
Date of Service:
Date of Service: February 05, 2025
Subjective:
Patient reportedly had somewhat increased pleuritic pain and episode of desaturation needing supplemental O2.
Review of Systems
Genitourinary: Other (Negative except as stated above )
Objective Data
Data Reviewed
Vital Signs / I&O / Oxygen:
Vital Signs
Temp Pulse Resp BP Pulse Ox
99.5 F 98 16 140/77 93
02/05/25 07:30 02/05/25 07:30 02/05/25 07:30 02/05/25 07:30 02/05/25 09:30
SaO2 93
Nasal Cannula flow liters per 4
minute
Physical Exam
HEENT: Normocephalic
Cardiovascular: S1-S2
Respiratory: Rhonchi (RLL, decreased air entry. Pleuruitic pain right side)
GI: Soft
Neurology: Awake and Alert
Labs/Micro/Reports
Lab Data
02/05/25 08:00
02/04/25 05:17
Microbiology
02/04/25 06:29 Urine Urine Culture - Final
NO GROWTH
02/04/25 07:35 Blood/Venous Blood Culture - Preliminary
No Growth in 24 hours- Final report to follow
02/04/25 07:33 Blood/Venous Blood Culture - Preliminary
No Growth in 24 hours- Final report to follow
02/04/25 05:24 Nasal Swab Influenza Types A & B ([facility]) - Final
Negative for Influenza A & B, NAAT
Negative results must be combined with clinical observations
and patient history.
Nucleic Acid Amplification test (NAAT)performed on the
[employer] platform.
[2025-02-05 15:00] VITALS: BP 119/67
[2025-02-05 23:00] VITALS: BP 148/78
[2025-02-06] MEDS: UNASYN IV ×4 (00:15→17:13)
[2025-02-06] MEDS: SYNTHROID 137 MCG PO (05:20)
[2025-02-06] MEDS: VANCOCIN HCL 500 MG 100 IV (06:06)
[2025-02-06] MEDS: HEPARIN 5000 UNITS SC ×2 (07:12→19:45)
[2025-02-06] MEDS: COLCHICINE 0.6 MG PO (07:12)
[2025-02-06] MEDS: NON-FORMULARY ITEM 27 MG PO (07:13)
[2025-02-06 07:50] VITALS: BP 98/64
[2025-02-06 09:14] LABS: Blood Urea Nitrogen 11 mg/dl (9-20); Estimated Creatinine Clearance 75 ml/min
--- NOTE | 2025-02-06 09:49 | W.PN.HOSP.TC ---
Today's Communication/Plan
-
c./w IV Abx
Wean down nasal O2
Assessment / Plan
Assessment / Plan
Physical Exam
General: No Apparent Distress and Comfortable
HEENT: Moist mucous membranes and Atraumatic
Respiratory: Less Rales
Cardiac: S1/S2
GI: Soft, Non Tender and Non Distended
Rectal: No Maroon Stools
Genito-urinary: No Membreno
Musculoskeletal: No Clubbing, No Cyanosis and No Edema
Skin: Warm and Dry; No Jaundice
Neuro: Alert and Oriented
Psych: Calm; No Agitated
44 years old male with Down syndrome presented with right sided pneumonia
rapid response 4/
Likely due to severe pleurisy
d/w parents, started PRN Toradol
# Sepsis, Septic shock ( mild) present on admission with tachycardia, leukocytosis and pneumonia. Resolving.
# Community-acquired pneumonia
Family denied history of swallowing difficulty or choking. Does have history of GERD.
CAT scan showed right lower lobe pneumonia with central 3.4 cm pulmonary abscess
Speech saw the pt, c/w regular diet
c/w broad-spectrum antibiotic
Negative COVID and influenza screen
Order Streptococcus and Legionella
Blood culture NGTD
Negative MRSA
Dry cough with no sputum per family
Tylenol for pleuritic chest pain
No hypoxia reported
Tessalon/Robitussin for cough
Follow-up with ID and pulmonary recommendations
# Hypoxia only
# Pleuritic chest pain
PRN Tylenol
# GERD, PPI
# Hypothyroidism, continue Synthroid
# Down syndrome/ Attention and concentration deficit
Continue home medications
# Gout, continue colchicine
Total time spent to see the patient, examine the patient, review data and lab results, discuss treatment plan with patient, parents, nursing staff, around 55 minutes. �
Anticipated Discharge: > 48 hours
Subjective/Interval History
-
Date of Service: February 06, 2025
No fevers
No chest pain
Objective Data
-
Labs:
Laboratory Results
02/06/25
07:36
BUN 11
Creatinine 0.9
Vital Signs:
Vital Signs
Temp Pulse Resp BP Pulse Ox
98.3 F 89 16 98/64 95
02/06/25 07:50 02/06/25 07:50 02/06/25 07:50 02/06/25 07:50 02/06/25 07:50
I&O
02/05/25 02/06/25 02/07/25
06:59 06:59 06:59
Intake Total 1120 / 1120
Balance 1120 / 1120
--- NOTE | 2025-02-06 11:34 | PHA.VAN.FU ---
Vancomycin Assessment / Plan
- Assessment
Renal Function: Stable
WBC's are: Stable (elevated)
In the past 24 hrs, patient has been: Afebrile
Concomitant Antimicrobials: ampicillin/sulbactam
- Dosing Plan
Continue: Vancomycin 500 mg q12h - first dose 02/05/25 0600
- Monitoring Plan
Peak Level: 02/06/25 2030 - after 5th total dose
Trough Level: 02/07/25 0530
- Follow Up
Pharmacy will continue to follow.
Vancomycin Follow UP
- -
Patient Age: 44
Patient Sex: Male
Vancomycin Day #: 3
Requesting Provider: LORETA
Height / Weight:
Height 5 ft
Actual Weight 58.2 kg
Pertinent Past Medical History: RECENT ER VISIT 02/02/25
- Vital Signs / Lab Results
Temp Pulse Resp BP Pulse Ox
98.3 F 89 16 98/64 95
02/06/25 07:50 02/06/25 07:50 02/06/25 07:50 02/06/25 07:50 02/06/25 07:50
Lab Results - Hematology
02/04/25 02/05/25
05:17 08:00
WBC 13.3 H 13.2 H
Lab Results - Chemistry
02/04/25 02/06/25
05:17 07:36
BUN 16 11
Creatinine 1.0 0.9
Estimated Creat Clear 67 75
Albumin 3.6
02/04/25
07:35
Lactic Acid 0.8
Microbiology Results
02/05/25 04:56 MRSA Screen - Final
Nose No Methicillin Resistant Staphylococcus aureus isolated.
02/04/25 07:35 Blood Culture - Preliminary
Blood/Venous No Growth in 48 hours- Final report to follow
02/04/25 07:33 Blood Culture - Preliminary
Blood/Venous No Growth in 48 hours- Final report to follow
02/04/25 06:29 Urine Culture - Final
Urine NO GROWTH
--- NOTE | 2025-02-06 14:23 | W.PN.ID1 ---
Date of Service
Date of Service: February 06, 2025
Today's Communication
Continue Unasyn. Discontinue further vancomycin.
Assessment / Plan
Right lower lobe pneumonia
Suspected evolving pulmonary abscess
Leukocytosis
Thrombocytosis
Hx Down syndrome
Thyroid disease
Gout
Hx GERD
Recommendations:
Pneumonia may be associated with recent viral infection (?Antecedent mild case of influenza), or may be secondary to aspiration given history of GERD.
MRSA screen negative. Further vancomycin can be discontinued.
Continue Unasyn 3 g IV every 6 hours.
Monitor white count and temperature curve.
Sputum culture has been ordered although no sample submitted as of yet.
Will need follow-up imaging to assess for clinical improvement.
����������������������������������������������������������
Chief Complaint
-: Pneumonia and Other (Suspected evolving pulmonary abscess)
Subjective / Review of Systems
Review of Systems: No Fever, No Chills and No Sputum Production
Vital Signs / Physical Exam
Vital Signs
Vital Signs
Temp Pulse Resp BP Pulse Ox
98.3 F 89 16 98/64 95
02/06/25 07:50 02/06/25 07:50 02/06/25 07:50 02/06/25 07:50 02/06/25 07:50
Physical Exam
Constitutional: No Acute Distress, Comfortable and Non-toxic
Eyes: Sclera Anicteric
Cardiovascular: S1/S2; Negative S3/S4
Pulmonary: Non Labored and Other (Decreased breath sounds right base)
Gastrointestinal: Soft and Non Tender
Extremities: Negative Edema, Clubbing or Cyanosis
Skin: Negative Rash
Neurological: Awake and Alert
Psychological: Calm
Objective Data
Lab Data
Lab Results
02/05/25 08:00
02/06/25 07:36
Estimated Creat Clear 75 ml/min 02/06/25 07:36
Lactic Acid 0.8 mmol/L (0.7-2.0) 02/04/25 07:35
Total Bilirubin 0.7 mg/dl (0.2-1.3) 02/04/25 05:17
AST 23 U/L (17-59) 02/04/25 05:17
ALT 23 U/L (0-50) 02/04/25 05:17
Alkaline Phosphatase 83 U/L (38-126) 02/04/25 05:17
Most recent labs reviewed.
Micro Results:
02/05/25 04:56 MRSA Screen - Final
Nose No Methicillin Resistant Staphylococcus aureus isolated.
02/04/25 07:35 Blood Culture - Preliminary
Blood/Venous No Growth in 48 hours- Final report to follow
02/04/25 07:33 Blood Culture - Preliminary
Blood/Venous No Growth in 48 hours- Final report to follow
02/04/25 06:29 Urine Culture - Final
Urine NO GROWTH
02/04/25 05:24 Influenza Types A & B ([facility]) - Final
Nasal Swab Negative for Influenza A & B, NAAT
Negative results must be combined with clinical observations
and patient history.
Nucleic Acid Amplification test (NAAT)performed on the
[employer] platform.
Imaging:
02/04/25 CT chest with contrast: Severe right lower lobe pneumonia containing a central 3.4 cm pulmonary abscess. New mild to moderate acute interstitial and alveolar pulmonary edema. New small right pleural effusion noted. Mildly decreased
bilateral lung volumes. Please see full dictation for additional detail.
Care Review
Plan reviewed with: Nurse
[2025-02-06 15:00] VITALS: BP 128/80
--- NOTE | 2025-02-06 17:09 | W.PN.PUL3 ---
Today's Communication / Plan
-
- Continue current antibiotics
-CT chest with contrast on Saturday for further evaluation
Assessment
-
#1. Right lower lobe necrotizing pneumonia with intra-pulmonary abscess. Suspect patient has underlying aspiration with resultant right lower lobe pneumonia with pulmonary abscess.
-Continue Unasyn per ID. MRSA screen negative
-Await cultures
-Considering the size of abscess, favor conservative management first with IV antibiotics
-Will arrange out patient follow up with Pulmonary Clinic after discharge
-Plan for repeat CT on Saturday to evaluate response to Iv Antibiotics
#2. Trace right-sided pleural effusion with Pleurisy
-Effusion is likely parapneumonic.
-If effusion grows in coming days, will need thoracentesis and fluid analysis
-Toradol as needed for pain
-No PE noted
-02/05, I performed a bedside POCUS which showed a trace right sided effusion, not amenable to safe drainage. If progresses in coming days, will consider drainage
#3. GERD with reported dysphagia. Reported history of Polo's esophagus, Schatzki ring s/p esophageal dilation and chronic PPI therapy. Per family, patient at times coughs while eating. Patient reports dysphagia to larger bites and having to
water down the food at times.
-This might be etiology of patient's pulmonary process
-Recommend soft diet for now
-Speech therapy evaluation
-Likely will need barium swallow or esophagram
-PPI BID for now
Updated patient's mother at bedside
Total time spent on this consultation/encounter __32_ minutes which includes review of history, physical exam, medications, laboratory data, personal review of imaging, extensive review of outpatient records, discussion with care team and
respiratory therapy.
Data:
CT CHEST: 02/2025: 1. SEVERE RIGHT LOWER LOBE PNEUMONIA containing a central 3.4 cm pulmonary abscess.
2. New mild to moderate acute interstitial and alveolar pulmonary edema.
3. New small right pleural effusion.
4. Mildly decreased bilateral lung volumes.
Subjective Data
-
Date of Service:
Date of Service: February 06, 2025
Subjective:
Patient comfortably sitting in bed, on room air. Pleuritic discomfort gradually improving
Review of Systems
Genitourinary: Other (No new symptoms reported.)
Objective Data
Data Reviewed
Vital Signs / I&O / Oxygen:
Vital Signs
Temp Pulse Resp BP Pulse Ox
99.8 F 106 15 128/80 89
02/06/25 15:00 02/06/25 15:00 02/06/25 15:00 02/06/25 15:00 02/06/25 15:00
Intake and Output
02/05/25 02/06/25 02/07/25
06:59 06:59 06:59
Intake Total 1120 / 1120
Balance 1120 / 1120
SaO2 89
Nasal Cannula flow liters per 2
minute
Physical Exam
HEENT: Normocephalic
Cardiovascular: S1-S2
Respiratory: Rhonchi (Improving rhonchi in right lower lobe.)
GI: Soft
Neurology: Awake and Alert
Labs/Micro/Reports
Lab Data
02/05/25 08:00
02/06/25 07:36
Microbiology
02/05/25 04:56 Nose MRSA Screen - Final
No Methicillin Resistant Staphylococcus aureus isolated.
02/04/25 07:35 Blood/Venous Blood Culture - Preliminary
No Growth in 48 hours- Final report to follow
02/04/25 07:33 Blood/Venous Blood Culture - Preliminary
No Growth in 48 hours- Final report to follow
02/04/25 06:29 Urine Urine Culture - Final
NO GROWTH
02/04/25 05:24 Nasal Swab Influenza Types A & B ([facility]) - Final
Negative for Influenza A & B, NAAT
Negative results must be combined with clinical observations
and patient history.
Nucleic Acid Amplification test (NAAT)performed on the
[employer] platform.
[2025-02-06] MEDS: TYLENOL 1000 MG PO (17:13)
[2025-02-06 23:00] VITALS: BP 98/56
[2025-02-07] MEDS: UNASYN IV ×5 (00:09→23:24)
[2025-02-07 06:56] LABS: Hematocrit 39.5 % (39.0-52.0); Hemoglobin 13.1 g/dL (13.0-18.0); Mean Corp Hgb Conc. 33.2 g/dL (33.0-37.0); Mean Corpuscular Hgb 30.8 pg (27.0-31.0); Mean Corpuscular Volume 92.7 fL (80.0-94.0); Mean Platelet Volume 9.1 fL (7.4-10.4); Platelet Count 495 10^3/uL (130-400); Red Blood Cell Count 4.26 10^6/uL (4.70-6.10); Red Cell Dist. Width 13.3 % (11.5-14.5); White Blood Cell Count 19.1 10^3/uL (4.8-10.8)
[2025-02-07 07:27] LABS: Blood Urea Nitrogen 11 mg/dl (9-20); Calcium 8.5 mg/dl (8.4-10.2); Carbon Dioxide 28 mmol/L (22-30); Chloride 103 mmol/L (98-107); Estimated Creatinine Clearance 75 ml/min; Glucose 115 mg/dl (70-99); Sodium 142 mmol/L (135-145); eGFR > 60.00
[2025-02-07 07:49] VITALS: BP 98/68
--- NOTE | 2025-02-07 08:28 | W.PN.HOSP.TC ---
Addendum entered and electronically signed by Herminia Hirsch MD 02/07/25 09:26:
Addendum
Ordered CT chest with IV contrast for Saturday
End
Original Note:
Today's Communication/Plan
-
c/w IV Abx
Chest x ray Saturday
f/w ID & pulmonary recommendations
Assessment / Plan
Assessment / Plan
Physical Exam
General: No Apparent Distress and Comfortable
HEENT: Moist mucous membranes and Atraumatic
Respiratory: diminished breath sound right lung.
Cardiac: S1/S2
GI: Soft, Non Tender and Non Distended
Rectal: No Maroon Stools
Genito-urinary: No Membreno
Musculoskeletal: No Clubbing, No Cyanosis and No Edema
Skin: Warm and Dry; No Jaundice
Neuro: Alert and Oriented
Psych: Calm; No Agitated
44 years old male with Down syndrome presented with right sided pneumonia
rapid response 4/4
Likely due to severe pleurisy
d/w parents, started PRN Toradol
# Sepsis, Septic shock ( mild) present on admission with tachycardia, leukocytosis and pneumonia.
# Community-acquired pneumonia
Family denied history of swallowing difficulty or choking. Does have history of GERD.
CAT scan showed right lower lobe pneumonia with central 3.4 cm pulmonary abscess
Speech saw the pt, c/w regular diet
s/p Unasyn & Vancomycin
Negative COVID and influenza screen
Ordered Streptococcus and Legionella
Blood culture NGTD
Negative MRSA
Dry cough with no sputum per family
Tylenol for pleuritic chest pain
No hypoxia reported
Tessalon/Robitussin for cough
Chest x ray in AM
Follow-up with ID and pulmonary recommendations
# Hypoxia only
# Pleuritic chest pain
PRN Tylenol
# GERD, PPI
# Hypothyroidism, continue Synthroid
# Down syndrome/ Attention and concentration deficit
Continue home medications
# Gout, continue colchicine
Total time spent to see the patient, examine the patient, review data and lab results, discuss treatment plan with patient, parents, nursing staff, around 55 minutes. �
Anticipated Discharge: > 48 hours
Subjective/Interval History
-
Date of Service: February 07, 2025
He denies chest pain
Objective Data
-
Labs:
Laboratory Results
02/07/25
06:32
WBC 19.1 H
Hgb 13.1
Hct 39.5
Plt Count 495 H
Sodium 142
Potassium 4.0
Chloride 103
Carbon Dioxide 28
BUN 11
Creatinine 0.9
Glucose 115 H
Calcium 8.5
Vital Signs:
Vital Signs
Temp Pulse Resp BP Pulse Ox
99.6 F 99 16 98/68 92
02/07/25 07:49 02/07/25 07:49 02/07/25 07:49 02/07/25 07:49 02/07/25 07:49
I&O
02/06/25 02/07/25 02/08/25
06:59 06:59 06:59
Intake Total 1120 / 1120 930 / 930
Balance 1120 / 1120 930 / 930
[2025-02-07] MEDS: NON-FORMULARY ITEM 27 MG PO (09:32)
[2025-02-07] MEDS: COLCHICINE 0.6 MG PO (09:32)
[2025-02-07] MEDS: HEPARIN 5000 UNITS SC ×2 (09:39→20:18)
[2025-02-07] MEDS: TORADOL 15 MG IV ×2 (12:15→20:18)
--- NOTE | 2025-02-07 13:14 | W.PN.ID1 ---
Date of Service
Date of Service: February 07, 2025
Today's Communication
Continue Unasyn.
Assessment / Plan
Right lower lobe pneumonia
Suspected evolving pulmonary abscess
Leukocytosis
Thrombocytosis
Hx Down syndrome
Thyroid disease
Gout
Hx GERD
Recommendations:
Pneumonia may be associated with recent viral infection (?Antecedent mild case of influenza), or may be secondary to aspiration given history of GERD.
MRSA screen negative. Vancomycin previously discontinued.
Continue Unasyn 3 g IV every 6 hours.
Monitor white count and temperature curve.
Sputum culture has been ordered although no sample submitted as of yet.
Will need follow-up imaging to assess for clinical improvement.
����������������������������������������������������������
Chief Complaint
-: Pneumonia and Other (Suspected evolving pulmonary abscess)
Subjective / Review of Systems
Review of Systems: No Fever
Vital Signs / Physical Exam
Vital Signs
Vital Signs
Temp Pulse Resp BP Pulse Ox
99.6 F 99 16 98/68 92
02/07/25 07:49 02/07/25 07:49 02/07/25 07:49 02/07/25 07:49 02/07/25 07:49
Physical Exam
Constitutional: No Acute Distress, Comfortable and Non-toxic
Eyes: Sclera Anicteric
Pulmonary: Non Labored
Gastrointestinal: Non Distended
Extremities: Negative Edema, Clubbing or Cyanosis
Skin: Negative Rash
Neurological: Awake and Alert
Psychological: Calm
Objective Data
Lab Data
Lab Results
02/07/25 06:32
02/07/25 06:32
Estimated Creat Clear 75 ml/min 02/07/25 06:32
Lactic Acid 0.8 mmol/L (0.7-2.0) 02/04/25 07:35
Total Bilirubin 0.7 mg/dl (0.2-1.3) 02/04/25 05:17
AST 23 U/L (17-59) 02/04/25 05:17
ALT 23 U/L (0-50) 02/04/25 05:17
Alkaline Phosphatase 83 U/L (38-126) 02/04/25 05:17
Most recent labs reviewed.
Micro Results:
02/04/25 07:35 Blood Culture - Preliminary
Blood/Venous No Growth in 72 hours- Final report to follow
02/04/25 07:33 Blood Culture - Preliminary
Blood/Venous No Growth in 72 hours- Final report to follow
02/05/25 04:56 MRSA Screen - Final
Nose No Methicillin Resistant Staphylococcus aureus isolated.
02/04/25 06:29 Urine Culture - Final
Urine NO GROWTH
02/04/25 05:24 Influenza Types A & B ([facility]) - Final
Nasal Swab Negative for Influenza A & B, NAAT
Negative results must be combined with clinical observations
and patient history.
Nucleic Acid Amplification test (NAAT)performed on the
[employer] platform.
Imaging:
02/04/25 CT chest with contrast: Severe right lower lobe pneumonia containing a central 3.4 cm pulmonary abscess. New mild to moderate acute interstitial and alveolar pulmonary edema. New small right pleural effusion noted. Mildly decreased
bilateral lung volumes. Please see full dictation for additional detail.
[2025-02-07 14:37] VITALS: BP 115/73
--- NOTE | 2025-02-07 15:04 | CM ---
CM reviewed chart, patient seen ambulating halls with nurse, patients parents visiting. Patient for CT chest on Saturday, 02/08. Patient remains on IV antibiotics. CM will continue to follow for all discharge planning needs.
Plan; return to apartment with Shared Support agency.
--- NOTE | 2025-02-07 16:02 | PTCARENOTE ---
Assumed care of pt from previous nurse. Pt provided toradol for pain to chest while coughing. Provided pillow to hug as well. Instructed on using while coughing. Pt provided a return demonstration. Pt report decrease in pain from medication. Pt call
melendez is within reach, pt rings tish. Pt is on 2L's of 02 sating at 96%, lungs diminished. will cont to monitor.
[2025-02-08] VITALS (9 sets, daily range): BP systolic 103–149; BP diastolic 53–80
[2025-02-08] MEDS: UNASYN IV ×4 (05:27→23:57)
[2025-02-08] MEDS: SYNTHROID 137 MCG PO (05:27)
[2025-02-08] MEDS: NON-FORMULARY ITEM 27 MG PO (09:20)
[2025-02-08] MEDS: COLCHICINE 0.6 MG PO (09:21)
[2025-02-08] MEDS: HEPARIN 5000 UNITS SC ×2 (09:21→20:53)
[2025-02-08 09:45] LABS: % Basophils 0.6 % (0-2); % Eosinophils 0.1 % (0-6); % Immature Granulocytes 0.4 % (0-0.5); % Lymphocytes 6.8 % (20.5-51.1); % Monocytes 5.9 % (1.7-9.3); % Neutrophils 86.2 % (42.2-75.2); Absolute Basophils 0.1 10^3/uL (0-0.2); Absolute Immature Granulocytes 0.1 10^3/uL (0-0.05); Absolute Monocytes 0.8 10^3/uL (0.1-0.6); Absolute Neutrophils 12.2 10^3/uL (1.4-6.5); Blood Urea Nitrogen 15 mg/dl (9-20); Calcium 8.4 mg/dl (8.4-10.2); Carbon Dioxide 35 mmol/L (22-30); Chloride 101 mmol/L (98-107); Estimated Creatinine Clearance 75 ml/min; Glucose 112 mg/dl (70-99); Hemoglobin 13.4 g/dL (13.0-18.0); Mean Corp Hgb Conc. 33.5 g/dL (33.0-37.0); Mean Corpuscular Hgb 31.1 pg (27.0-31.0); Mean Corpuscular Volume 92.8 fL (80.0-94.0); Mean Platelet Volume 9.2 fL (7.4-10.4); Nucleated Red Blood Cells % 0 % (-); Platelet Count 509 10^3/uL (130-400); Potassium 3.9 mmol/L (3.5-5.1); Red Blood Cell Count 4.31 10^6/uL (4.70-6.10); Red Cell Dist. Width 13.5 % (11.5-14.5); Sodium 141 mmol/L (135-145); White Blood Cell Count 14.2 10^3/uL (4.8-10.8); eGFR > 60.00
--- NOTE | 2025-02-08 10:33 | W.PN.PUL3 ---
Today's Communication / Plan
-
-IR guided pleural fluid drainage. Thoracentesis vs chest tube depending on fluid characteristic/complete vs partial drainage
-Check Pleural fluid for LDH, Protein, Gram stain and cultures
Assessment
-
#1. Right lower lobe necrotizing pneumonia with intra-pulmonary abscess. Suspect patient has underlying aspiration with resultant right lower lobe pneumonia with pulmonary abscess.
-Continue Unasyn per ID. MRSA screen negative
-F/u CT 02/08, gradual improvement in abscess
-Continue IV Antibiotics for now
-RML changes appear to be atelectasis due to enlarging effusion rather than pneumonia.
#2. Moderate right-sided pleural effusion, likely para-pneumonic
-Effusion is likely parapneumonic. Need to rule out empyema
-Since effusion is larger on CT 02/08, will request IR guided Thoracentesis and send fluid for Cell count, LDH, Protein and gram stain with culture. Does not appear to be loculated on imaging. If fluid is turbid or does not drain fully, will need
Chest tube placement
-Toradol as needed for pain, symptomatically much improved
-No PE noted
#3. GERD with reported dysphagia. Reported history of Polo's esophagus, Schatzki ring s/p esophageal dilation and chronic PPI therapy. Per family, patient at times coughs while eating. Patient reports dysphagia to larger bites and having to
water down the food at times.
-This might be etiology of patient's pulmonary process
-Recommend soft diet for now
-Speech therapy evaluation
-Likely will need barium swallow or esophagram
-PPI BID for now
Updated patient's mother at bedside
Total time spent on this consultation/encounter __42_ minutes which includes review of history, physical exam, medications, laboratory data, personal review of imaging, extensive review of outpatient records, discussion with care team and
respiratory therapy.
Data:
CT CHEST: 02/2025: 1. SEVERE RIGHT LOWER LOBE PNEUMONIA containing a central 3.4 cm pulmonary abscess.
2. New mild to moderate acute interstitial and alveolar pulmonary edema.
3. New small right pleural effusion.
4. Mildly decreased bilateral lung volumes.
Subjective Data
-
Date of Service:
Date of Service: February 08, 2025
Subjective:
Sitting comfortably in chair, no acute distress.
Review of Systems
Genitourinary: Other (No new symptoms reported. )
Objective Data
Data Reviewed
Vital Signs / I&O / Oxygen:
Vital Signs
Temp Pulse Resp BP Pulse Ox
98.5 F 93 20 125/56 95
02/08/25 07:38 02/08/25 07:38 02/08/25 07:38 02/08/25 07:38 02/08/25 07:38
Intake and Output
02/07/25 02/08/25 02/09/25
06:59 06:59 06:59
Intake Total 930 / 930 1340 / 1340
Output Total 120 / 120
Balance 930 / 930 1220 / 1220
SaO2 95
Nasal Cannula flow liters per 2
minute
Physical Exam
General: Comfortable
HEENT: Normocephalic
Cardiovascular: S1-S2
Respiratory: Rhonchi (Decreased air entry, RLL)
GI: Soft
Neurology: Awake and Alert
Labs/Micro/Reports
Lab Data
02/08/25 09:09
02/08/25 09:09
Microbiology
02/04/25 07:35 Blood/Venous Blood Culture - Preliminary
No Growth in 4 days- Final report to follow
02/04/25 07:33 Blood/Venous Blood Culture - Preliminary
No Growth in 4 days- Final report to follow
02/05/25 04:56 Nose MRSA Screen - Final
No Methicillin Resistant Staphylococcus aureus isolated.
02/04/25 06:29 Urine Urine Culture - Final
NO GROWTH
--- NOTE | 2025-02-08 10:57 | CM ---
Addendum entered by Deidre Ventura 02/08/25 13:31:
Naomi at [facility]- [phone]
Original Note:
park recreation manager reviewed patient's chart and met with patient and patient's mother and aunt and uncle at bedside, patient is currently off oxygen and is ambulating hallway with his mother. Per patient's mother patient lives with roommate in an
apartment, patient takes the bus and works at [employer] 3 days a week for 4 hours, residential case manager discussed possible IV ABX, and will await orders and script for IV ABX, per mother roommate will have to learn how to give patient home ABX.
Plan; Home with [facility] infusion for home IV ABX.
[2025-02-08 11:57] LABS: LDH 177 U/L (120-246); Total Protein 5.2 g/dl (6.3-8.2)
--- NOTE | 2025-02-08 12:18 | W.PN.HOSP.TC ---
Today's Communication/Plan
-
Monitor vitals
See plan
Wean oxygen as tolerated
Continue antibiotics
Thoracentesis
Assessment / Plan
Assessment / Plan
Physical Exam
General: No Apparent Distress and Comfortable
HEENT: Moist mucous membranes and Atraumatic
Respiratory: diminished breath sound right lung.
Cardiac: S1/S2
GI: Soft, Non Tender and Non Distended
Rectal: No Maroon Stools
Genito-urinary: No Membreno
Musculoskeletal: No Clubbing, No Cyanosis and No Edema
Skin: Warm and Dry; No Jaundice
Neuro: Alert and Oriented
Psych: Calm; No Agitated
44 years old male with Down syndrome presented with right sided pneumonia
rapid response 02/05
Likely due to severe pleurisy
d/w parents, started PRN Toradol
# Sepsis, Septic shock ( mild) present on admission with tachycardia, leukocytosis and pneumonia.
# Community-acquired pneumonia
Right lower lobe necrotizing pneumonia with intrapulmonary abscess
Continue antibiotics per infectious disease
Follow-up CT 02/08 with gradual improvement in abscess. However did show moderate right-sided pleural effusion which likely appears parapneumonic. would need to rule out empyema. IR consulted for thoracentesis.
Family denied history of swallowing difficulty or choking. Does have history of GERD.
initial CAT scan showed right lower lobe pneumonia with central 3.4 cm pulmonary abscess
Speech saw the pt, c/w regular diet
cw abx
Negative COVID and influenza screen
Blood culture NGTD
Negative MRSA
Dry cough with no sputum per family
Tylenol for pleuritic chest pain
No hypoxia reported
Tessalon/Robitussin for cough
Follow-up with ID and pulmonary recommendations
# Hypoxia only
# Pleuritic chest pain
PRN Tylenol
# GERD, PPI
# Hypothyroidism, continue Synthroid
# Down syndrome/ Attention and concentration deficit
Continue home medications
# Gout, continue colchicine
Total time spent to see the patient, examine the patient, review data and lab results, discuss treatment plan with patient, parents, nursing staff, around 52 minutes. �
Anticipated Discharge: > 48 hours
Subjective/Interval History
-
Date of Service: February 08, 2025
Denies shortness of breath
Objective Data
-
Labs:
Laboratory Results
02/08/25
09:09
WBC 14.2 H
Hgb 13.4
Hct 40.0
Plt Count 509 H
Sodium 141
Potassium 3.9
Chloride 101
Carbon Dioxide 35 H
BUN 15
Creatinine 0.9
Glucose 112 H
Calcium 8.4
Vital Signs:
Vital Signs
Temp Pulse Resp BP Pulse Ox
98.5 F 93 20 125/56 95
02/08/25 07:38 02/08/25 07:38 02/08/25 07:38 02/08/25 07:38 02/08/25 07:38
I&O
02/07/25 02/08/25 02/09/25
06:59 06:59 06:59
Intake Total 930 / 930 1340 / 1340
Output Total 120 / 120
Balance 930 / 930 1220 / 1220
--- NOTE | 2025-02-08 15:16 | W.PN.UPDATE ---
Update Note
Progress Note Update
Right sided chest tube placed 16 [place] thal quik.
Preprocedure US demonstrated significant loculation within the right pleural fluid. Fluid character was mostly serous with some cloudiness, therefore decision was made to place chest tube.
Drained 100 cc of cloudy serous fluid, sent for lab analysis.
Patient tolerated well. Updated parents.
[2025-02-08 16:16] LABS: Body Fluid pH 7.08
[2025-02-08 16:26] LABS: Body Fluid Protein 4.1 g/dl
[2025-02-08 16:35] LABS: Body Fluid Mononuclear 54.1 %; Body Fluid Polymorphonuclear 45.9 %; Body Fluid WBC 18040 /CUMM
[2025-02-08 16:40] LABS: Body Fluid Second Tech HB
[2025-02-08 16:48] LABS: Body Fluid LDH 2500 U/L
[2025-02-08] MEDS: TORADOL 15 MG IV (18:40)
--- NOTE | 2025-02-09 01:57 | PTCARENOTE ---
1900 pt has chest tube to right side. has no c/o pain. lungs diminished. pt is on 6L at 100%.
2300 pt took oxygen off 88% on room air. placed back on oxygen at 2L for SpO2= 95%.
0100 pt sleeping. SpO2=93% on 2l
[2025-02-09] MEDS: UNASYN IV ×4 (05:53→23:44)
[2025-02-09] MEDS: TORADOL 15 MG IV ×2 (05:53→14:28)
[2025-02-09] MEDS: SYNTHROID 137 MCG PO (05:53)
[2025-02-09 07:29] VITALS: BP 111/67
[2025-02-09] MEDS: HEPARIN 5000 UNITS SC ×2 (08:00→20:24)
[2025-02-09] MEDS: COLCHICINE 0.6 MG PO (08:00)
[2025-02-09] MEDS: NON-FORMULARY ITEM 27 MG PO (08:11)
[2025-02-09 08:15] LABS: Blood Urea Nitrogen 16 mg/dl (9-20); Calcium 8.4 mg/dl (8.4-10.2); Carbon Dioxide 28 mmol/L (22-30); Chloride 99 mmol/L (98-107); Estimated Creatinine Clearance 84 ml/min; Glucose 86 mg/dl (70-99); Potassium 4.3 mmol/L (3.5-5.1); Sodium 141 mmol/L (135-145); eGFR > 60.00
[2025-02-09 08:25] LABS: % Basophils 0.7 % (0-2); % Eosinophils 0.5 % (0-6); % Immature Granulocytes 0.6 % (0-0.5); % Lymphocytes 10.1 % (20.5-51.1); % Monocytes 4.8 % (1.7-9.3); % Neutrophils 83.3 % (42.2-75.2); Absolute Basophils 0.1 10^3/uL (0-0.2); Absolute Eosinophils 0.1 10^3/uL (0-0.7); Absolute Immature Granulocytes 0.1 10^3/uL (0-0.05); Absolute Lymphocytes 1.2 10^3/uL (1.2-3.4); Absolute Monocytes 0.6 10^3/uL (0.1-0.6); Absolute Neutrophils 9.8 10^3/uL (1.4-6.5); Hematocrit 40.9 % (39.0-52.0); Hemoglobin 13.9 g/dL (13.0-18.0); Mean Corpuscular Hgb 30.9 pg (27.0-31.0); Mean Corpuscular Volume 90.9 fL (80.0-94.0); Mean Platelet Volume 9.8 fL (7.4-10.4); Nucleated Red Blood Cells % 0 % (-); Platelet Count 491 10^3/uL (130-400); Red Cell Dist. Width 13.6 % (11.5-14.5); White Blood Cell Count 11.8 10^3/uL (4.8-10.8)
--- NOTE | 2025-02-09 09:07 | PN.IRAD.UPD ---
Update Note - IRAD
- -
Chest tube clamped, TPa/Dornase instilled into Right Chest tube as ordered by . Patient and Mom instructed to try and turn every 15-30 mins. RN instructed to open chest tube in 2 hours to drainage, orders will be entered by IRAD.
--- NOTE | 2025-02-09 10:57 | W.PN.PUL3 ---
Today's Communication / Plan
-
- Start intrapleural tPA/DNase
- Chest x-ray in a.m
Assessment
-
#1. Right lower lobe necrotizing pneumonia with intra-pulmonary abscess. Suspect patient has underlying aspiration with resultant right lower lobe pneumonia with pulmonary abscess.
-Continue Unasyn per ID. MRSA screen negative
-F/u CT 02/08, gradual improvement in abscess
-Continue IV Antibiotics for now
-RML changes appear to be atelectasis due to enlarging effusion rather than pneumonia.
#2. Moderate right-sided pleural effusion, complicated parapneumonic with loculations versus empyema
-S/p IR guided drainage on 02/08. In view of loculations noted on imaging, chest tube was placed.
-Fluid pH 7.08, LDH of 2500, protein 4.1, consistent with exudate. Cultures negative so far, Gram stain pending
-Start tPA/DNase through chest tube, 02/09. Follow-up chest x-ray in a.m.
-Toradol as needed for pain, symptomatically much improved
-No PE noted
#3. GERD with reported dysphagia. Reported history of Polo's esophagus, Schatzki ring s/p esophageal dilation and chronic PPI therapy. Per family, patient at times coughs while eating. Patient reports dysphagia to larger bites and having to
water down the food at times.
-This might be etiology of patient's pulmonary process
-Recommend soft diet for now
-Speech therapy evaluation
-Likely will need barium swallow or esophagram
-PPI BID for now
Updated patient's mother at bedside
Total time spent on this consultation/encounter __32_ minutes which includes review of history, physical exam, medications, laboratory data, personal review of imaging, extensive review of outpatient records, discussion with care team and
respiratory therapy.
Data:
CT CHEST: 02/2025: 1. SEVERE RIGHT LOWER LOBE PNEUMONIA containing a central 3.4 cm pulmonary abscess.
2. New mild to moderate acute interstitial and alveolar pulmonary edema.
3. New small right pleural effusion.
4. Mildly decreased bilateral lung volumes.
Subjective Data
-
Date of Service:
Date of Service: February 09, 2025
Subjective:
Patient comfortably sitting in bed, no acute distress. Reports improving pleuritic discomfort.
Review of Systems
Genitourinary: Other (No new symptoms reported.)
Objective Data
Data Reviewed
Vital Signs / I&O / Oxygen:
Vital Signs
Temp Pulse Resp BP Pulse Ox
98.3 F 73 20 111/67 96
02/09/25 07:29 02/09/25 07:29 02/09/25 07:29 02/09/25 07:29 02/09/25 09:46
Intake and Output
02/08/25 02/09/25 02/10/25
06:59 06:59 06:59
Intake Total 1340 / 1340 1740 / 1740
Output Total 120 / 120 10 / 10 30 / 30
Balance 1220 / 1220 1730 / 1730 -30 / -30
SaO2 96
Nasal Cannula flow liters per 2
minute
Physical Exam
General: Comfortable
HEENT: Normocephalic
Cardiovascular: S1-S2
Respiratory: Other (No rhonchi on exam, improving air entry on the right side.)
GI: Soft
Neurology: Awake and Alert
Labs/Micro/Reports
Lab Data
02/09/25 06:07
02/09/25 06:07
Microbiology
02/08/25 15:35 Pleural Fluid Body Fluid Culture - Preliminary
No Growth After 18-24 Hours
02/04/25 07:35 Blood/Venous Blood Culture - Final
No Growth - Final Report
02/04/25 07:33 Blood/Venous Blood Culture - Final
No Growth - Final Report
02/05/25 04:56 Nose MRSA Screen - Final
No Methicillin Resistant Staphylococcus aureus isolated.
--- NOTE | 2025-02-09 12:03 | W.PN.HOSP.TC ---
Today's Communication/Plan
-
Monitor vital signs see plan
Wean oxygen as tolerated
Maintain chest tube per IR and pulmonary
Continue with tPA/DNase
Chest x-ray in a.m.
Continue antibiotic per infectious disease
Assessment / Plan
Assessment / Plan
Physical Exam
General: No Apparent Distress and Comfortable
HEENT: Moist mucous membranes and Atraumatic
Respiratory: diminished breath sound right lung. +chest tube
Cardiac: S1/S2
GI: Soft, Non Tender and Non Distended
Rectal: No Maroon Stools
Genito-urinary: No Membreno
Musculoskeletal: No Clubbing, No Cyanosis and No Edema
Skin: Warm and Dry; No Jaundice
Neuro: Alert and Oriented
Psych: Calm; No Agitated
44 years old male with Down syndrome presented with right sided pneumonia
rapid response 02/05
Likely due to severe pleurisy
d/w parents, started PRN Toradol
# Sepsis, Septic shock ( mild) present on admission with tachycardia, leukocytosis and pneumonia.
# Community-acquired pneumonia
Right lower lobe necrotizing pneumonia with intrapulmonary abscess
Continue antibiotics per infectious disease
Follow-up CT 02/08 with gradual improvement in abscess. However did show moderate right-sided pleural effusion which status post thoracentesis, appears empyema. Now with chest tube. Pulmonary following. Started intrapleural tPA/DNase; CXR in am 02/09
Family denied history of swallowing difficulty or choking. Does have history of GERD.
initial CAT scan showed right lower lobe pneumonia with central 3.4 cm pulmonary abscess
Speech saw the pt, c/w regular diet
cw abx
Negative COVID and influenza screen
Blood culture NGTD
Negative MRSA
Dry cough with no sputum per family
Tylenol for pleuritic chest pain
No hypoxia reported
Tessalon/Robitussin for cough
Follow-up with ID and pulmonary recommendations
# Hypoxia only
# Pleuritic chest pain
PRN Tylenol
# GERD, PPI
# Hypothyroidism, continue Synthroid
# Down syndrome/ Attention and concentration deficit
Continue home medications
# Gout, continue colchicine
Total time spent to see the patient, examine the patient, review data and lab results, discuss treatment plan with patient, parents, nursing staff, around 51 minutes. �
Anticipated Discharge: > 48 hours
Subjective/Interval History
-
Date of Service: February 09, 2025
denies sob
Objective Data
-
Labs:
Laboratory Results
02/09/25
06:07
WBC 11.8 H
Hgb 13.9
Hct 40.9
Plt Count 491 H
Sodium 141
Potassium 4.3
Chloride 99
Carbon Dioxide 28
BUN 16
Creatinine 0.8
Glucose 86
Calcium 8.4
Vital Signs:
Vital Signs
Temp Pulse Resp BP Pulse Ox
98.3 F 73 20 111/67 96
02/09/25 07:29 02/09/25 07:29 02/09/25 07:29 02/09/25 07:29 02/09/25 09:46
I&O
02/08/25 02/09/25 02/10/25
06:59 06:59 06:59
Intake Total 1340 / 1340 1740 / 1740
Output Total 120 / 120 10 10 30 / 30
Balance 1220 / 1220 1730 / 1730 -30 / -30
--- NOTE | 2025-02-09 13:43 | CM ---
CM reviewed chart, spoke with Naomi CACERES, from [facility] [phone]. Naomi reports the staff at [facility] are willing to learn how to give IV antibiotics, would like to be present for teaching when patient is clear for discharge and
[facility] does teaching. CM will await script/orders for IV antibiotics and will fax to [facility]. Naomi requesting referral to [facility] for nursing, PT, and OT. Naomi reports they are potentially going to be moving patient to a rancher
(short term) rather than patient returning to third floor apartment, no elevator access. Clinicals faxed to [facility] at [phone]. CM will continue to follow for all discharge planning needs.
Plan; home with [facility] for IV ABX, [facility] requesting [facility] at discharge.
[2025-02-09 14:59] VITALS: BP 127/79
--- NOTE | 2025-02-09 15:00 | W.PN.ID1 ---
Date of Service
Date of Service: February 09, 2025
Today's Communication
Continue antibiotics.
Assessment / Plan
Right lower lobe pneumonia
Suspected evolving pulmonary abscess
Leukocytosis
Thrombocytosis
Hx Down syndrome
Thyroid disease
Gout
Hx GERD
Recommendations:
Pneumonia may be associated with recent viral infection (?Antecedent mild case of influenza), or may be secondary to aspiration given history of GERD.
MRSA screen negative. Vancomycin previously discontinued.
Continue Unasyn 3 g IV every 6 hours.
Monitor white count and temperature curve.
Will need follow-up imaging to assess for clinical improvement.
����������������������������������������������������������
Chief Complaint
-: Pneumonia and Other (Suspected evolving pulmonary abscess)
Subjective / Review of Systems
Patient seen and examined. Chest tube placed yesterday with ongoing output.
Vital Signs / Physical Exam
Vital Signs
Vital Signs
Temp Pulse Resp BP Pulse Ox
98.6 F 101 18 127/79 97
02/09/25 14:59 02/09/25 14:59 02/09/25 14:59 02/09/25 14:59 02/09/25 14:59
Physical Exam
Constitutional: Comfortable and Non-toxic
Cardiovascular: S1/S2; Negative S3/S4
Pulmonary: Non Labored and Other (Right chest tube in place.)
Gastrointestinal: Soft, Non Tender and Non Distended
Neurological: Awake and Alert
Psychological: Calm
Objective Data
Lab Data
Lab Results
02/09/25 06:07
02/09/25 06:07
Estimated Creat Clear 84 ml/min 02/09/25 06:07
Lactic Acid 0.8 mmol/L (0.7-2.0) 02/04/25 07:35
Total Bilirubin 0.7 mg/dl (0.2-1.3) 02/04/25 05:17
AST 23 U/L (17-59) 02/04/25 05:17
ALT 23 U/L (0-50) 02/04/25 05:17
Alkaline Phosphatase 83 U/L (38-126) 02/04/25 05:17
Most recent labs reviewed.
Micro Results:
02/08/25 15:35 Body Fluid Culture - Preliminary
Pleural Fluid No Growth After 18-24 Hours
Gram Stain - Pending
02/04/25 07:35 Blood Culture - Final
Blood/Venous No Growth - Final Report
02/04/25 07:33 Blood Culture - Final
Blood/Venous No Growth - Final Report
02/05/25 04:56 MRSA Screen - Final
Nose No Methicillin Resistant Staphylococcus aureus isolated.
02/04/25 06:29 Urine Culture - Final
Urine NO GROWTH
02/04/25 05:24 Influenza Types A & B ([facility]) - Final
Nasal Swab Negative for Influenza A & B, NAAT
Negative results must be combined with clinical observations
and patient history.
Nucleic Acid Amplification test (NAAT)performed on the
[employer] platform.
Imaging:
02/04/25 CT chest with contrast: Severe right lower lobe pneumonia containing a central 3.4 cm pulmonary abscess. New mild to moderate acute interstitial and alveolar pulmonary edema. New small right pleural effusion noted. Mildly decreased
bilateral lung volumes. Please see full dictation for additional detail.
[2025-02-09] MEDS: TYLENOL 1000 MG PO (17:50)
[2025-02-09 23:43] VITALS: BP 120/75
[2025-02-10] MEDS: UNASYN IV ×4 (05:40→23:12)
[2025-02-10] MEDS: SYNTHROID 137 MCG PO (05:40)
[2025-02-10 07:48] VITALS: BP 119/81
[2025-02-10 07:56] LABS: % Basophils 0.8 % (0-2); % Eosinophils 1.7 % (0-6); % Immature Granulocytes 0.7 % (0-0.5); % Lymphocytes 15.6 % (20.5-51.1); % Monocytes 8.1 % (1.7-9.3); % Neutrophils 73.1 % (42.2-75.2); Absolute Basophils 0.1 10^3/uL (0-0.2); Absolute Eosinophils 0.2 10^3/uL (0-0.7); Absolute Immature Granulocytes 0.1 10^3/uL (0-0.05); Absolute Lymphocytes 1.3 10^3/uL (1.2-3.4); Absolute Monocytes 0.7 10^3/uL (0.1-0.6); Absolute Neutrophils 6.3 10^3/uL (1.4-6.5); Hemoglobin 12.1 g/dL (13.0-18.0); Mean Corp Hgb Conc. 32.7 g/dL (33.0-37.0); Mean Corpuscular Hgb 30.7 pg (27.0-31.0); Mean Corpuscular Volume 93.9 fL (80.0-94.0); Mean Platelet Volume 9.5 fL (7.4-10.4); Nucleated Red Blood Cells % 0 % (-); Platelet Count 484 10^3/uL (130-400); Red Blood Cell Count 3.94 10^6/uL (4.70-6.10); Red Cell Dist. Width 13.6 % (11.5-14.5); White Blood Cell Count 8.6 10^3/uL (4.8-10.8)
[2025-02-10 08:18] LABS: Blood Urea Nitrogen 16 mg/dl (9-20); Carbon Dioxide 32 mmol/L (22-30); Chloride 103 mmol/L (98-107); Estimated Creatinine Clearance 67 ml/min; Glucose 96 mg/dl (70-99); Potassium 4.2 mmol/L (3.5-5.1); Sodium 142 mmol/L (135-145); eGFR > 60.00
[2025-02-10] MEDS: NON-FORMULARY ITEM 27 MG PO (08:37)
[2025-02-10] MEDS: COLCHICINE 0.6 MG PO (08:38)
[2025-02-10] MEDS: HEPARIN 5000 UNITS SC ×2 (08:38→20:45)
--- NOTE | 2025-02-10 09:07 | PN.IRAD.UPD ---
Update Note - IRAD
- -
Chest tube clamped, site cleaned and dressing changed. TPA/Dornase instilled into Right chest tube per . Orders will be entered by IRAD to open to drainage in 2 hours. Instructions given to mom and RN.
[2025-02-10] MEDS: TORADOL 15 MG IV (10:04)
--- NOTE | 2025-02-10 10:27 | CM ---
CM reviewed chart, patient seen with mother. Patient remains on O2. Discussed with mother referral to [facility] for VN, PT/OT, will send clinicals/script to [facility] when script obtained for home IV antibiotics. CM will continue to follow for all
discharge planning needs.
Plan; return to apartment with [facility]- with [facility]N, [facility] IV antibiotics, watch for home O2 needs
--- NOTE | 2025-02-10 12:00 | W.PN.HOSP.TC ---
Today's Communication/Plan
-
Monitor vital signs and see plan
Continue with antibiotics
Another dose of intrapleural tPA
Pulmonary following
Maintain chest tube
Pain control
Discussed with mother at bedside
Assessment / Plan
Assessment / Plan
Physical Exam
General: No Apparent Distress and Comfortable
HEENT: Moist mucous membranes and Atraumatic
Respiratory: diminished breath sound right lung. +chest tube
Cardiac: S1/S2
GI: Soft, Non Tender and Non Distended
Rectal: No Maroon Stools
Genito-urinary: No Membreno
Musculoskeletal: No Clubbing, No Cyanosis and No Edema
Skin: Warm and Dry; No Jaundice
Neuro: Alert and Oriented
Psych: Calm; No Agitated
44 years old male with Down syndrome presented with right sided pneumonia
rapid response 02/05
Likely due to severe pleurisy
d/w parents, started PRN Toradol
# Sepsis, Septic shock ( mild) present on admission with tachycardia, leukocytosis and pneumonia.
# Community-acquired pneumonia
Right lower lobe necrotizing pneumonia with intrapulmonary abscess
Continue antibiotics per infectious disease
Follow-up CT 02/08 with gradual improvement in abscess. However did show moderate right-sided pleural effusion which status post thoracentesis, appears empyema. Now with chest tube. Pulmonary following. Started intrapleural tPA/DNase, received
02/09,02/10; CXR on 02/10 noted with small/moderate right-sided loculated pleural effusion.
Family denied history of swallowing difficulty or choking. Does have history of GERD.
initial CAT scan showed right lower lobe pneumonia with central 3.4 cm pulmonary abscess
Speech saw the pt, c/w regular diet
cw abx
Negative COVID and influenza screen
Blood culture NGTD
Negative MRSA
Dry cough with no sputum per family
Tylenol for pleuritic chest pain
No hypoxia reported
Tessalon/Robitussin for cough
Follow-up with ID and pulmonary recommendations
# Hypoxia only
# Pleuritic chest pain
PRN Tylenol
# GERD, PPI
# Hypothyroidism, continue Synthroid
# Down syndrome/ Attention and concentration deficit
Continue home medications
# Gout, continue colchicine
Total time spent to see the patient, examine the patient, review data and lab results, discuss treatment plan with patient, parents, nursing staff, around 52 minutes. �
Anticipated Discharge: > 48 hours
Subjective/Interval History
-
Date of Service: February 10, 2025
Had some pain this morning
Objective Data
-
Labs:
Laboratory Results
02/10/25
06:37
WBC 8.6
Hgb 12.1 L
Hct 37.0 L
Plt Count 484 H
Sodium 142
Potassium 4.2
Chloride 103
Carbon Dioxide 32 H
BUN 16
Creatinine 1.0
Glucose 96
Calcium 8.0 L
Vital Signs:
Vital Signs
Temp Pulse Resp BP Pulse Ox
98.0 F 72 18 119/81 96
02/10/25 07:48 02/10/25 07:48 02/10/25 07:48 02/10/25 07:48 02/10/25 08:56
I&O
02/09/25 02/10/25 02/11/25
06:59 06:59 06:59
Intake Total 1740 / 1740 720 / 720
Output Total 1020 / 1020
Balance 1730 / 1730 -300 / -300
--- NOTE | 2025-02-10 14:02 | PN.CDI ---
CDI
- -
CDI:
Physician Documentation Request
Admit Date: 02/04/25 08:33
Dear Doctor Marc,
Patient admitted for sepsis.
02/09 Hospitalist PN: 'Right lower lobe necrotizing pneumonia with intrapulmonary abscess...moderate right-sided pleural effusion which status post thoracentesis, appears empyema. Now with chest tube.'
Selected Entries
02/08/25
13:05 02/08/25
15:17 02/08/25
15:40
Nasal Cannula flow liters per minute 4 6 6
02/08/25
19:15 02/08/25
23:24
Nasal Cannula flow liters per minute 2 6
Clarify which of the following accurately represents the patient's respiratory status:
Acute hypoxic respiratory failure
Hypoxia
Other
Additional information for Respiratory Failure:
Recognized criteria for Respiratory Failure (Source: [facility] Sep 2013)
ABGs: (1 or more) Symptoms Please indicate type if known
1. p)2 <60 or RA SPO2 <91% on RA 1. Tachypnea, SOB, dyspnea Hypoxic
2. pCO2 50 and pH <7.35 2. Use of accessory muscles Hypercapnic
3. pO2 decrease of pCO2 increase by 3. Pallor or cyanosis Hypoxic and Hypercapnic
10 mmHg from baseline if known 4. Anxiety or restlessness Unable to determine
5. Unable to speak in full sentences
Supplemental O2 of > 40% (5LPM) Intubation is not required
Use of terms such as suspected, likely, concern for, or probable (associated with a specific diagnosis that is being evaluated, monitored, or treated as if it exists) are acceptable and can be coded in the inpatient setting, when documented at the
time of discharge.
Thank you,
Arina Mello RN, BSN
CDI Specialist
Available via [place] text
Please use your independent medical judgment in providing your response.
--- NOTE | 2025-02-10 14:35 | W.PN.PUL3 ---
Today's Communication / Plan
-
-Proceed with second dose of tPA/DNase
-Chest x-ray in a.m.
-Depending upon clinical course, likely will repeat CT scan with contrast on Saturday, 02/12
Assessment
-
#1. Right lower lobe necrotizing pneumonia with intra-pulmonary abscess. Suspect patient has underlying aspiration with resultant right lower lobe pneumonia with pulmonary abscess.
-Continue Unasyn per ID. MRSA screen negative
-F/u CT 02/08, gradual improvement in abscess
-Continue IV Antibiotics for now
-RML changes appear to be atelectasis due to enlarging effusion rather than pneumonia.
#2. Moderate right-sided pleural effusion, complicated parapneumonic with loculations versus empyema
-S/p IR guided drainage on 02/08. In view of loculations noted on imaging, chest tube was placed.
-Fluid pH 7.08, LDH of 2500, protein 4.1, consistent with exudate. Cultures negative so far
-Started tPA/DNase through chest tube, 02/09. 2nd dose 02/10. >1 ltr output last 24 hrs
-Toradol as needed for pain, symptomatically much improved
-No PE noted
-CXR in AM.
#3. GERD with reported dysphagia. Reported history of Polo's esophagus, Schatzki ring s/p esophageal dilation and chronic PPI therapy. Per family, patient at times coughs while eating. Patient reports dysphagia to larger bites and having to
water down the food at times.
-This might be etiology of patient's pulmonary process
-Recommend soft diet for now
-Speech therapy evaluation
-Likely will need barium swallow or esophagram
-PPI BID for now
Updated patient's mother at bedside
Total time spent on this consultation/encounter __31_ minutes which includes review of history, physical exam, medications, laboratory data, personal review of imaging, extensive review of outpatient records, discussion with care team and
respiratory therapy.
Data:
CT CHEST: 02/2025: 1. SEVERE RIGHT LOWER LOBE PNEUMONIA containing a central 3.4 cm pulmonary abscess.
2. New mild to moderate acute interstitial and alveolar pulmonary edema.
3. New small right pleural effusion.
4. Mildly decreased bilateral lung volumes.
Subjective Data
-
Date of Service:
Date of Service: February 10, 2025
Subjective:
Patient comfortably sitting in bed, in no acute distress.
Review of Systems
Genitourinary: Other (No new symptoms reported.)
Objective Data
Data Reviewed
Vital Signs / I&O / Oxygen:
Vital Signs
Temp Pulse Resp BP Pulse Ox
98.0 F 72 18 119/81 96
02/10/25 07:48 02/10/25 07:48 02/10/25 07:48 02/10/25 07:48 02/10/25 08:56
Intake and Output
02/09/25 02/10/25 02/11/25
06:59 06:59 06:59
Intake Total 1740 / 1740 720 / 720
Output Total 1020 / 1020
Balance 1730 / 1730 -300 / -300
SaO2 96
Nasal Cannula flow liters per 2
minute
Physical Exam
General: Comfortable
HEENT: Normocephalic
Cardiovascular: S1-S2
Respiratory: Non-Labored Respirations and Other (No rhonchi on exam, improving air entry on the right side.)
GI: Soft
Neurology: Awake and Alert
Labs/Micro/Reports
Lab Data
02/10/25 06:37
02/10/25 06:37
Microbiology
02/08/25 15:35 Pleural Fluid Body Fluid Culture - Preliminary
No Growth After 48 Hours
02/08/25 15:35 Pleural Fluid Gram Stain - Preliminary
02/04/25 07:35 Blood/Venous Blood Culture - Final
No Growth - Final Report
02/04/25 07:33 Blood/Venous Blood Culture - Final
No Growth - Final Report
[2025-02-10 15:49] VITALS: BP 140/97
[2025-02-10] MEDS: TYLENOL 1000 MG PO (15:53)
--- NOTE | 2025-02-10 17:10 | W.PN.ID1 ---
Date of Service
Date of Service: February 10, 2025
Today's Communication
Continue antibiotics.
Assessment / Plan
Right lower lobe pneumonia
Suspected evolving pulmonary abscess
Leukocytosis
Thrombocytosis
Hx Down syndrome
Thyroid disease
Gout
Hx GERD
Recommendations:
White count normalized today. Chest tube draining.
Continue Unasyn 3 g IV every 6 hours.
Continue to monitor white count and temperature curve.
Will need follow-up imaging to assess for clinical improvement.
����������������������������������������������������������
Chief Complaint
-: Pneumonia and Other (Suspected evolving pulmonary abscess)
Subjective / Review of Systems
Review of Systems: No Fever
Vital Signs / Physical Exam
Vital Signs
Vital Signs
Temp Pulse Resp BP Pulse Ox
98.0 F 95 18 140/97 96
02/10/25 15:49 02/10/25 15:49 02/10/25 15:49 02/10/25 15:49 02/10/25 15:49
Physical Exam
Constitutional: Comfortable and Non-toxic
Pulmonary: Non Labored and Other (Right chest tube in place.)
Gastrointestinal: Non Distended
Neurological: Awake and Alert
Psychological: Calm
Objective Data
Lab Data
Lab Results
02/10/25 06:37
02/10/25 06:37
Estimated Creat Clear 67 ml/min 02/10/25 06:37
Lactic Acid 0.8 mmol/L (0.7-2.0) 02/04/25 07:35
Total Bilirubin 0.7 mg/dl (0.2-1.3) 02/04/25 05:17
AST 23 U/L (17-59) 02/04/25 05:17
ALT 23 U/L (0-50) 02/04/25 05:17
Alkaline Phosphatase 83 U/L (38-126) 02/04/25 05:17
Most recent labs reviewed.
Micro Results:
02/08/25 15:35 Body Fluid Culture - Preliminary
Pleural Fluid No Growth After 48 Hours
Gram Stain - Preliminary
02/04/25 07:35 Blood Culture - Final
Blood/Venous No Growth - Final Report
02/04/25 07:33 Blood Culture - Final
Blood/Venous No Growth - Final Report
02/05/25 04:56 MRSA Screen - Final
Nose No Methicillin Resistant Staphylococcus aureus isolated.
02/04/25 06:29 Urine Culture - Final
Urine NO GROWTH
02/04/25 05:24 Influenza Types A & B ([facility]YE) - Final
Nasal Swab Negative for Influenza A & B, NAAT
Negative results must be combined with clinical observations
and patient history.
Nucleic Acid Amplification test (NAAT)performed on the
[employer] platform.
Imaging:
02/04/25 CT chest with contrast: Severe right lower lobe pneumonia containing a central 3.4 cm pulmonary abscess. New mild to moderate acute interstitial and alveolar pulmonary edema. New small right pleural effusion noted. Mildly decreased
bilateral lung volumes. Please see full dictation for additional detail.
[2025-02-10 22:37] VITALS: BP 131/81
[2025-02-11] MEDS: TYLENOL 1000 MG PO (02:47)
[2025-02-11] MEDS: SYNTHROID 137 MCG PO (05:06)
[2025-02-11] MEDS: UNASYN IV ×4 (05:06→23:53)
[2025-02-11] MEDS: HEPARIN 5000 UNITS SC ×2 (07:18→21:40)
[2025-02-11] MEDS: COLCHICINE 0.6 MG PO (07:18)
[2025-02-11] MEDS: NON-FORMULARY ITEM 27 MG PO (07:19)
[2025-02-11 07:35] VITALS: BP 118/76
[2025-02-11 07:42] LABS: % Basophils 0.6 % (0-2); % Eosinophils 0.6 % (0-6); % Immature Granulocytes 0.7 % (0-0.5); % Monocytes 6.9 % (1.7-9.3); % Neutrophils 80.2 % (42.2-75.2); Absolute Basophils 0.1 10^3/uL (0-0.2); Absolute Eosinophils 0.1 10^3/uL (0-0.7); Absolute Immature Granulocytes 0.1 10^3/uL (0-0.05); Absolute Lymphocytes 1.4 10^3/uL (1.2-3.4); Absolute Monocytes 0.9 10^3/uL (0.1-0.6); Hematocrit 36.1 % (39.0-52.0); Hemoglobin 12.2 g/dL (13.0-18.0); Mean Corp Hgb Conc. 33.8 g/dL (33.0-37.0); Mean Corpuscular Hgb 31.4 pg (27.0-31.0); Mean Platelet Volume 9.5 fL (7.4-10.4); Nucleated Red Blood Cells % 0 % (-); Platelet Count 528 10^3/uL (130-400); Red Blood Cell Count 3.88 10^6/uL (4.70-6.10); Red Cell Dist. Width 13.6 % (11.5-14.5); White Blood Cell Count 12.5 10^3/uL (4.8-10.8)
[2025-02-11 08:16] LABS: Blood Urea Nitrogen 14 mg/dl (9-20); Calcium 8.1 mg/dl (8.4-10.2); Carbon Dioxide 32 mmol/L (22-30); Chloride 103 mmol/L (98-107); Estimated Creatinine Clearance 75 ml/min; Glucose 112 mg/dl (70-99); Potassium 4.3 mmol/L (3.5-5.1); Sodium 141 mmol/L (135-145); eGFR > 60.00
--- NOTE | 2025-02-11 09:26 | PN.IRAD.UPD ---
Update Note - IRAD
- -
Instilled 50ml of TPA and 50ml of Dornase into right sided chest tube and clamped tube at 9:20. Informed nurse to unclamp tube at 11:20.
Vlad Rodriguez RT(R)()
[2025-02-11] MEDS: TORADOL 15 MG IV (10:15)
--- NOTE | 2025-02-11 12:00 | W.PN.HOSP.TC ---
Today's Communication/Plan
-
Monitor vitals
See plan
Pain control
Maintain chest tube per pulmonary and IR
Intrapleural tPA
Continue antibiotics
Discussed with mother at bedside
Assessment / Plan
Assessment / Plan
Physical Exam
General: No Apparent Distress and Comfortable
HEENT: Moist mucous membranes and Atraumatic
Respiratory: diminished breath sound right lung. +chest tube
Cardiac: S1/S2
GI: Soft, Non Tender and Non Distended
Rectal: No Maroon Stools
Genito-urinary: No Membreno
Musculoskeletal: No Edema
Neuro: Alert and Oriented
Psych: Calm; No Agitated
44 years old male with Down syndrome presented with right sided pneumonia
rapid response 02/05
Likely due to severe pleurisy
d/w parents, started PRN Toradol
# Sepsis, Septic shock ( mild) present on admission with tachycardia, leukocytosis and pneumonia.
# Community-acquired pneumonia
Right lower lobe necrotizing pneumonia with intrapulmonary abscess
Continue antibiotics per infectious disease
Follow-up CT 02/08 with gradual improvement in abscess. However did show moderate right-sided pleural effusion which status post thoracentesis, appears empyema. Now with chest tube. Pulmonary following. Started intrapleural tPA/DNase, received
02/09,02/10, 02/11; CXR on 02/10 noted with small/moderate right-sided loculated pleural effusion.
Discussed with pulmonary, no need for repeat imaging at this time since patient chest tube is still draining.
Family denied history of swallowing difficulty or choking. Does have history of GERD.
initial CAT scan showed right lower lobe pneumonia with central 3.4 cm pulmonary abscess
Speech saw the pt, c/w regular diet
cw abx
Negative COVID and influenza screen
Blood culture NGTD
Negative MRSA
Dry cough with no sputum per family
Tylenol for pleuritic chest pain
No hypoxia reported
Tessalon/Robitussin for cough
Follow-up with ID and pulmonary recommendations
Acute hypoxic respiratory failure likely secondary to right lower lobe necrotizing pneumonia with intrapulmonary abscess
Was once put on 6 L, now on 2 L. Wean oxygen as tolerated
# Pleuritic chest pain
PRN Tylenol
# GERD, PPI
# Hypothyroidism, continue Synthroid
# Down syndrome/ Attention and concentration deficit
Continue home medications
# Gout, continue colchicine
Total time spent to see the patient, examine the patient, review data and lab results, discuss treatment plan with patient, parents, nursing staff, around 51 minutes. �
Anticipated Discharge: > 48 hours
Subjective/Interval History
-
Date of Service: February 11, 2025
Has some pain today chest tube site
Objective Data
-
Labs:
Laboratory Results
02/11/25
07:02
WBC 12.5 H
Hgb 12.2 L
Hct 36.1 L
Plt Count 528 H
Sodium 141
Potassium 4.3
Chloride 103
Carbon Dioxide 32 H
BUN 14
Creatinine 0.9
Glucose 112 H
Calcium 8.1 L
Vital Signs:
Vital Signs
Temp Pulse Resp BP Pulse Ox
98 F 85 16 118/76 99
02/11/25 07:35 02/11/25 07:35 02/11/25 07:35 02/11/25 07:35 02/11/25 08:00
I&O
02/10/25 02/11/25 02/12/25
06:59 06:59 06:59
Intake Total 720 / 720 1080 / 1080
Output Total 1020 / 1020 455 / 455
Balance -300 / -300 625 / 625
--- NOTE | 2025-02-11 12:27 | W.PN.PUL3 ---
Today's Communication / Plan
-
- Follow-up chest x-ray in a.m.
Assessment
-
Patient is a very pleasant 44-year-old gentleman with Down syndrome who was seen in the emergency room accompanied by his father, mother and sister. Patient reportedly has been dealing with cough for close to 2 weeks now. It started with upper
respiratory kind of symptoms. Patient was recently seen in the emergency room on 02 February and was noted to have right lower lobe pneumonia on CT scan. He was started on Augmentin and Zithromax and cefdinir. Patient continued to have cough with
significant right-sided pleuritic chest discomfort particularly with coughing which brought him back to the emergency room. He had a repeat CT done with contrast which was negative for any pulmonary embolism but did show trace pleural effusion
along with right lower lobe pneumonia with developing pulmonary abscess. Pulmonary consultation was requested for further recommendations.
On further review, no reported recent dental work or dental abscess. Patient denies any mouth pain. Reported longstanding history of gastroesophageal reflux disease managed with proton pump inhibitors. Patient also reports occasional dysphagia
particularly to larger bites which she reports that he has to water down. Reported history of Polo's esophagus and Schatzki rings in the past and recent esophageal dilation as per patient's mother, I do not have access to these records. Family
reports that they have noticed at times patient will cough while eating.
#1. Right lower lobe necrotizing pneumonia with intra-pulmonary abscess. Suspect patient has underlying aspiration with resultant right lower lobe pneumonia with pulmonary abscess.
-Continue Unasyn per ID. MRSA screen negative
-F/u CT 02/08, gradual improvement in abscess
-Continue IV Antibiotics for now
-RML changes appear to be atelectasis due to enlarging effusion rather than pneumonia.
#2. Moderate right-sided pleural effusion, complicated parapneumonic with loculations versus empyema
-S/p IR guided drainage on 02/08. In view of loculations noted on imaging, chest tube was placed.
-Fluid pH 7.08, LDH of 2500, protein 4.1, consistent with exudate. Cultures negative so far
-Started tPA/DNase through chest tube, 02/09. 2nd dose 02/10. >1 ltr output last 24 hrs. 3rd dose 02/11
-Toradol as needed for pain, symptomatically much improved
-No PE noted
-CXR in AM
#3. GERD with reported dysphagia. Reported history of Polo's esophagus, Schatzki ring s/p esophageal dilation and chronic PPI therapy. Per family, patient at times coughs while eating. Patient reports dysphagia to larger bites and having to
water down the food at times.
-This might be etiology of patient's pulmonary process
-Recommend soft diet for now
-Speech therapy evaluation
-Likely will need barium swallow or esophagram
-PPI BID for now
Updated patient's mother at bedside.. Will examine the patient again later today, depending upon output might give another dose later today.
Total time spent on this consultation/encounter __45_ minutes which includes review of history, physical exam, medications, laboratory data, personal review of imaging, extensive review of outpatient records, discussion with care team and
respiratory therapy.
Data:
CT CHEST: 02/2025: 1. SEVERE RIGHT LOWER LOBE PNEUMONIA containing a central 3.4 cm pulmonary abscess.
2. New mild to moderate acute interstitial and alveolar pulmonary edema.
3. New small right pleural effusion.
4. Mildly decreased bilateral lung volumes.
Subjective Data
-
Date of Service:
Date of Service: February 11, 2025
Subjective:
Patient reports mild local discomfort after tPA was injected this morning.
Review of Systems
Genitourinary: Other (All 14 systems reviewed and negative except as stated above in the history of present illness.)
Objective Data
Data Reviewed
Vital Signs / I&O / Oxygen:
Vital Signs
Temp Pulse Resp BP Pulse Ox
98 F 85 16 118/76 99
02/11/25 07:35 02/11/25 07:35 02/11/25 07:35 02/11/25 07:35 02/11/25 08:00
Intake and Output
02/10/25 02/11/25 02/12/25
06:59 06:59 06:59
Intake Total 720 / 720 1080 / 1080
Output Total 1020 / 1020 455 / 455
Balance -300 / -300 625 / 625
SaO2 99
Nasal Cannula flow liters per 2
minute
Physical Exam
General: Comfortable
HEENT: Normocephalic
Cardiovascular: S1-S2
Respiratory: Non-Labored Respirations and Other (No rhonchi on exam, improving air entry on the right side.)
GI: Soft
Neurology: Awake and Alert
Labs/Micro/Reports
Lab Data
02/11/25 07:02
02/11/25 07:02
Microbiology
02/08/25 15:35 Pleural Fluid Body Fluid Culture - Final
No Growth After 72 Hours
02/08/25 15:35 Pleural Fluid Gram Stain - Final
02/04/25 07:35 Blood/Venous Blood Culture - Final
No Growth - Final Report
02/04/25 07:33 Blood/Venous Blood Culture - Final
No Growth - Final Report
--- NOTE | 2025-02-11 12:33 | W.PN.ID1 ---
Date of Service
Date of Service: February 11, 2025
Today's Communication
Continue antibiotics
Assessment / Plan
Right lower lobe pneumonia
Suspected evolving pulmonary abscess
Parapneumonic effusion
- CT in place
Leukocytosis
Thrombocytosis
Hx Down's syndrome
Thyroid disease
Gout
Hx GERD
Recommendations:
Chest tube draining.
Continue Unasyn 3 g IV every 6 hours while inpatient
Anticipate transition to ceftriaxone at D/C
Continue to monitor white count and temperature curve.
����������������������������������������������������������
Chief Complaint
-: Pneumonia and Other (Suspected evolving pulmonary abscess)
Subjective / Review of Systems
Patient seen and examined. Chest tube remains in place.
Review of Systems: No Fever and No Chills
Vital Signs / Physical Exam
Vital Signs
Vital Signs
Temp Pulse Resp BP Pulse Ox
98 F 85 16 118/76 99
02/11/25 07:35 02/11/25 07:35 02/11/25 07:35 02/11/25 07:35 02/11/25 08:00
Physical Exam
Constitutional: Comfortable and Non-toxic
Pulmonary: Non Labored and Other (Right chest tube in place.)
Gastrointestinal: Soft, Non Tender and Non Distended
Extremities: Negative Edema or Cyanosis
Skin: Warm and Dry; Negative Rash or Jaundice
Neurological: Awake and Alert
Psychological: Calm
Objective Data
Lab Data
Lab Results
02/11/25 07:02
02/11/25 07:02
Estimated Creat Clear 75 ml/min 02/11/25 07:02
Lactic Acid 0.8 mmol/L (0.7-2.0) 02/04/25 07:35
Total Bilirubin 0.7 mg/dl (0.2-1.3) 02/04/25 05:17
AST 23 U/L (17-59) 02/04/25 05:17
ALT 23 U/L (0-50) 02/04/25 05:17
Alkaline Phosphatase 83 U/L (38-126) 02/04/25 05:17
Most recent labs reviewed.
Micro Results:
02/08/25 15:35 Body Fluid Culture - Final
Pleural Fluid No Growth After 72 Hours
Gram Stain - Final
02/04/25 07:35 Blood Culture - Final
Blood/Venous No Growth - Final Report
02/04/25 07:33 Blood Culture - Final
Blood/Venous No Growth - Final Report
02/05/25 04:56 MRSA Screen - Final
Nose No Methicillin Resistant Staphylococcus aureus isolated.
02/04/25 06:29 Urine Culture - Final
Urine NO GROWTH
02/04/25 05:24 Influenza Types A & B ([facility]) - Final
Nasal Swab Negative for Influenza A & B, NAAT
Negative results must be combined with clinical observations
and patient history.
Nucleic Acid Amplification test (NAAT)performed on the
[employer] platform.
Imaging:
02/04/25 CT chest with contrast: Severe right lower lobe pneumonia containing a central 3.4 cm pulmonary abscess. New mild to moderate acute interstitial and alveolar pulmonary edema. New small right pleural effusion noted. Mildly decreased
bilateral lung volumes. Please see full dictation for additional detail.
[2025-02-11 15:00] VITALS: BP 121/73
[2025-02-11 22:56] VITALS: BP 122/73
[2025-02-12] MEDS: SYNTHROID 137 MCG PO (05:41)
[2025-02-12] MEDS: UNASYN IV ×4 (05:41→23:12)
[2025-02-12 07:10] VITALS: BP 112/69
[2025-02-12 07:30] LABS: % Basophils 0.8 % (0-2); % Eosinophils 0.8 % (0-6); % Immature Granulocytes 1.1 % (0-0.5); % Neutrophils 76.3 % (42.2-75.2); Absolute Basophils 0.1 10^3/uL (0-0.2); Absolute Eosinophils 0.1 10^3/uL (0-0.7); Absolute Immature Granulocytes 0.1 10^3/uL (0-0.05); Absolute Lymphocytes 1.7 10^3/uL (1.2-3.4); Absolute Monocytes 0.8 10^3/uL (0.1-0.6); Absolute Neutrophils 9.1 10^3/uL (1.4-6.5); Hematocrit 39.6 % (39.0-52.0); Mean Corp Hgb Conc. 32.8 g/dL (33.0-37.0); Mean Corpuscular Hgb 30.7 pg (27.0-31.0); Mean Corpuscular Volume 93.6 fL (80.0-94.0); Mean Platelet Volume 9.4 fL (7.4-10.4); Nucleated Red Blood Cells % 0 % (-); Platelet Count 665 10^3/uL (130-400); Red Blood Cell Count 4.23 10^6/uL (4.70-6.10); Red Cell Dist. Width 13.8 % (11.5-14.5)
[2025-02-12 07:33] LABS: Blood Urea Nitrogen 13 mg/dl (9-20); Calcium 8.5 mg/dl (8.4-10.2); Carbon Dioxide 33 mmol/L (22-30); Chloride 102 mmol/L (98-107); Estimated Creatinine Clearance 67 ml/min; Glucose 106 mg/dl (70-99); Potassium 4.1 mmol/L (3.5-5.1); Sodium 142 mmol/L (135-145); eGFR > 60.00
--- NOTE | 2025-02-12 09:00 | W.PN.PUL3 ---
Addendum entered and electronically signed by Liane Irwin MD 02/13/25 07:53:
Date of service: 02/12/2025.
Original Note:
Today's Communication / Plan
-
-CT Chest reviewed, residual loculated effusion
-IR consult for chest tube revision and t-PA after tube revised.
-CXR in AM
Assessment
-
Patient is a very pleasant 44-year-old gentleman with Down syndrome who was seen in the emergency room accompanied by his father, mother and sister. Patient reportedly has been dealing with cough for close to 2 weeks now. It started with upper
respiratory kind of symptoms. Patient was recently seen in the emergency room on 02 February and was noted to have right lower lobe pneumonia on CT scan. He was started on Augmentin and Zithromax and cefdinir. Patient continued to have cough with
significant right-sided pleuritic chest discomfort particularly with coughing which brought him back to the emergency room. He had a repeat CT done with contrast which was negative for any pulmonary embolism but did show trace pleural effusion
along with right lower lobe pneumonia with developing pulmonary abscess. Pulmonary consultation was requested for further recommendations.
On further review, no reported recent dental work or dental abscess. Patient denies any mouth pain. Reported longstanding history of gastroesophageal reflux disease managed with proton pump inhibitors. Patient also reports occasional dysphagia
particularly to larger bites which she reports that he has to water down. Reported history of Polo's esophagus and Schatzki rings in the past and recent esophageal dilation as per patient's mother, I do not have access to these records. Family
reports that they have noticed at times patient will cough while eating.
#1. Right lower lobe necrotizing pneumonia with intra-pulmonary abscess. Suspect patient has underlying aspiration with resultant right lower lobe pneumonia with pulmonary abscess.
-Continue Unasyn per ID. MRSA screen negative
-F/u CT 02/08, gradual improvement in abscess
-Continue IV Antibiotics for now
-RML changes appear to be atelectasis due to enlarging effusion rather than pneumonia.
#2. Moderate right-sided pleural effusion, complicated parapneumonic with loculations versus empyema
-S/p IR guided drainage on 02/08. In view of loculations noted on imaging, chest tube was placed.
-Fluid pH 7.08, LDH of 2500, protein 4.1, consistent with exudate. Cultures negative so far
-Started tPA/DNase through chest tube, 02/09. 2nd dose 02/10. >1 ltr output last 24 hrs. 3rd dose 02/11
-Toradol as needed for pain, symptomatically much improved
-No PE noted
-02/12. No chest tube output over last [address] chest performed. Additional loculation noted posteriorly which was not communicating with current tube with overall improved effusion. I went back and re-examined patient, discussed with the mother,
who agreed to proceed with repositioning vs placement of a second chest tube for residual loculated effusion. Discussed with IR, plan for chest tube revision. Second chest tube placed, and dose of t-PA given.
-CXR in AM
#3. GERD with reported dysphagia. Reported history of Polo's esophagus, Schatzki ring s/p esophageal dilation and chronic PPI therapy. Per family, patient at times coughs while eating. Patient reports dysphagia to larger bites and having to
water down the food at times.
-This might be etiology of patient's pulmonary process
-Recommend soft diet for now
-Speech therapy evaluation
-Likely will need barium swallow or esophagram
-PPI BID for now
Updated patient's mother at bedside.. Will examine the patient again later today, depending upon output might give another dose later today.
Total time spent on this consultation/encounter __48_ minutes which includes review of history, physical exam, medications, laboratory data, personal review of imaging, extensive review of outpatient records, discussion with care team and
respiratory therapy.
Data:
CT CHEST: 02/2025: 1. SEVERE RIGHT LOWER LOBE PNEUMONIA containing a central 3.4 cm pulmonary abscess.
2. New mild to moderate acute interstitial and alveolar pulmonary edema.
3. New small right pleural effusion.
4. Mildly decreased bilateral lung volumes.
Subjective Data
-
Date of Service:
Date of Service: February 13, 2025
Subjective:
Patient comfortably sitting in bed, experienced pain while last dose of tPA was given. No chest tube drainage since last 24 hrs.
Review of Systems
Genitourinary: Other (NO new symptoms reported )
Objective Data
Data Reviewed
Vital Signs / I&O / Oxygen:
Vital Signs
Temp Pulse Resp BP Pulse Ox
97.9 F 66 18 97/57 99
02/12/25 22:55 02/12/25 22:55 02/12/25 22:55 02/12/25 22:55 02/12/25 22:55
Intake and Output
02/12/25 02/13/25 02/14/25
06:59 06:59 06:59
Intake Total 1140 / 1140 1680 / 1680
Output Total 50 / 50 165 / 165
Balance 1090 / 1090 1515 / 1515
SaO2 99
Nasal Cannula flow liters per 2
minute
Physical Exam
General: Comfortable
HEENT: Normocephalic
Cardiovascular: S1-S2
Respiratory: Non-Labored Respirations and Other (No rhonchi on exam, improving air entry on the right side.)
GI: Soft
Neurology: Awake and Alert
Labs/Micro/Reports
Lab Data
02/13/25 06:41
Microbiology
02/08/25 15:35 Pleural Fluid Body Fluid Culture - Final
No Growth After 72 Hours
02/08/25 15:35 Pleural Fluid Gram Stain - Final
[2025-02-12] MEDS: COLCHICINE 0.6 MG PO (09:13)
[2025-02-12] MEDS: NON-FORMULARY ITEM 27 MG PO (09:13)
[2025-02-12] MEDS: HEPARIN 5000 UNITS SC ×2 (09:13→20:37)
--- NOTE | 2025-02-12 14:14 | W.PN.HOSP.TC ---
Today's Communication/Plan
-
Monitor vitals
See plan
Repeat CT chest today
Pulmonary following
Pain control
Discussed with mother at bedside
Continue antibiotic
Assessment / Plan
Assessment / Plan
Physical Exam
General: No Apparent Distress and Comfortable
HEENT: Moist mucous membranes and Atraumatic
Respiratory: diminished breath sound right lung. +chest tube
Cardiac: S1/S2
GI: Soft, Non Tender and Non Distended
Rectal: No Maroon Stools
Genito-urinary: No Membreno
Musculoskeletal: No Edema
Neuro: Alert and Oriented
Psych: Calm; No Agitated
44 years old male with Down syndrome presented with right sided pneumonia
rapid response 02/05
Likely due to severe pleurisy
d/w parents, started PRN Toradol
# Sepsis, Septic shock ( mild) present on admission with tachycardia, leukocytosis and pneumonia.
# Community-acquired pneumonia
Right lower lobe necrotizing pneumonia with intrapulmonary abscess
Continue antibiotics per infectious disease
Follow-up CT 02/08 with gradual improvement in abscess. However did show moderate right-sided pleural effusion which status post thoracentesis, appears empyema. Now with chest tube. Pulmonary following. Started intrapleural tPA/DNase, received
02/09,02/10, 02/11; CXR on 02/10 noted with small/moderate right-sided loculated pleural effusion.
Discussed with pulmonary, repeat CT chest 02/12
Family denied history of swallowing difficulty or choking. Does have history of GERD.
initial CAT scan showed right lower lobe pneumonia with central 3.4 cm pulmonary abscess
Speech saw the pt, c/w regular diet
cw abx
Negative COVID and influenza screen
Blood culture NGTD
Negative MRSA
Dry cough with no sputum per family
Tylenol for pleuritic chest pain
No hypoxia reported
Tessalon/Robitussin for cough
Follow-up with ID and pulmonary recommendations
Acute hypoxic respiratory failure likely secondary to right lower lobe necrotizing pneumonia with intrapulmonary abscess
Was once put on 6 L, now on 2 L. Wean oxygen as tolerated
# Pleuritic chest pain
PRN Tylenol
# GERD, PPI
# Hypothyroidism, continue Synthroid
# Down syndrome/ Attention and concentration deficit
Continue home medications
# Gout, continue colchicine
Anticipated Discharge: > 48 hours
Subjective/Interval History
-
Date of Service: February 12, 2025
Denies shortness of breath
Objective Data
-
Labs:
Laboratory Results
02/12/25
07:01
WBC 12.0 H
Hgb 13.0
Hct 39.6
Plt Count 665 H D
Sodium 142
Potassium 4.1
Chloride 102
Carbon Dioxide 33 H
BUN 13
Creatinine 1.0
Glucose 106 H
Calcium 8.5
Vital Signs:
Vital Signs
Temp Pulse Resp BP Pulse Ox
98.0 F 76 18 112/69 98
02/12/25 07:10 02/12/25 07:10 02/12/25 07:10 02/12/25 07:10 02/12/25 07:10
I&O
02/11/25 02/12/25 02/13/25
06:59 06:59 06:59
Intake Total 1080 / 1080 1140 / 1140
Output Total 455 / 455 50 / 50
Balance 625 / 625 1090 / 1090
[2025-02-12 15:38] VITALS: BP 125/68
--- NOTE | 2025-02-12 15:51 | CM ---
CM reviewed chart, patient for repeat chest CT today. Pulmonary following. Patient remains on IV antibiotics, will follow for need for home infusion set up upon discharge. Patient resides in apartment with [facility]. Will provide updates
to [facility] [phone] as needed. Family agreeable to referral to [facility] upon discharge. CM will continue to follow for all discharge planning needs.
Plan; home with [facility], watch for home O2 needs, watch for home infusion needs through [facility].
[2025-02-12 16:15] VITALS: BP 139/87; BP_SYST 97
--- NOTE | 2025-02-12 17:18 | PN.IRAD.UPD ---
Update Note - IRAD
- -
Instilled 50ml of TPA and 50ml of Dornase into right sided chest tube and clamped tube at 17:00. Unclamp tube at 19:00.
Vald Rodriguez RT(R)()
[2025-02-12 17:30] VITALS: BP 106/75; BP_SYST 112
[2025-02-12] MEDS: TORADOL 15 MG IV (17:44)
[2025-02-12] MEDS: TYLENOL 1000 MG PO (18:09)
[2025-02-12 22:55] VITALS: BP 97/57
[2025-02-13] MEDS: UNASYN IV ×4 (05:47→23:03)
[2025-02-13] MEDS: SYNTHROID 137 MCG PO (05:47)
[2025-02-13 07:00] VITALS: BP 123/67
[2025-02-13 07:31] LABS: % Basophils 0.8 % (0-2); % Eosinophils 0.8 % (0-6); % Lymphocytes 15.9 % (20.5-51.1); % Monocytes 7.5 % (1.7-9.3); Absolute Basophils 0.1 10^3/uL (0-0.2); Absolute Eosinophils 0.1 10^3/uL (0-0.7); Absolute Immature Granulocytes 0.1 10^3/uL (0-0.05); Absolute Lymphocytes 1.7 10^3/uL (1.2-3.4); Absolute Monocytes 0.8 10^3/uL (0.1-0.6); Absolute Neutrophils 7.8 10^3/uL (1.4-6.5); Hematocrit 35.1 % (39.0-52.0); Hemoglobin 11.6 g/dL (13.0-18.0); Mean Corpuscular Hgb 30.9 pg (27.0-31.0); Mean Corpuscular Volume 93.4 fL (80.0-94.0); Mean Platelet Volume 9.4 fL (7.4-10.4); Nucleated Red Blood Cells % 0 % (-); Platelet Count 640 10^3/uL (130-400); Red Blood Cell Count 3.76 10^6/uL (4.70-6.10); Red Cell Dist. Width 13.9 % (11.5-14.5); White Blood Cell Count 10.5 10^3/uL (4.8-10.8)
[2025-02-13 07:55] LABS: Blood Urea Nitrogen 13 mg/dl (9-20); Carbon Dioxide 32 mmol/L (22-30); Chloride 102 mmol/L (98-107); Estimated Creatinine Clearance 67 ml/min; Glucose 100 mg/dl (70-99); Potassium 4.3 mmol/L (3.5-5.1); Sodium 139 mmol/L (135-145); eGFR > 60.00
[2025-02-13] MEDS: COLCHICINE 0.6 MG PO (08:06)
[2025-02-13] MEDS: NON-FORMULARY ITEM 27 MG PO (08:06)
[2025-02-13] MEDS: HEPARIN 5000 UNITS SC ×2 (08:07→21:25)
--- NOTE | 2025-02-13 11:04 | W.PN.ID1 ---
Date of Service
Date of Service: February 13, 2025
Today's Communication
Continue Unasyn 3 g IV every 6 hours while inpatient
Anticipate transition to ceftriaxone at D/C
Assessment / Plan
Right lower lobe pneumonia
Suspected evolving pulmonary abscess
Parapneumonic effusion
- CT in place
Leukocytosis
Thrombocytosis
Hx Down's syndrome
Thyroid disease
Gout
Hx GERD
Recommendations:
Chest tube draining.
Continue Unasyn 3 g IV every 6 hours while inpatient
Anticipate transition to ceftriaxone at D/C
Continue to monitor white count and temperature curve.
����������������������������������������������������������
Chief Complaint
-: Pneumonia and Other (Suspected evolving pulmonary abscess)
Subjective / Review of Systems
afebrile
bp stable
had right pleural lysis yesterday
Vital Signs / Physical Exam
Vital Signs
Vital Signs
Temp Pulse Resp BP Pulse Ox
97.9 F 83 20 123/67 95
02/12/25 22:55 02/13/25 07:00 02/13/25 07:00 02/13/25 07:00 02/13/25 07:00
Physical Exam
Constitutional: No Acute Distress
Cardiovascular: Regular Rate and S1/S2; Negative Murmur or Rub
Pulmonary: Clear and Symmetric; Negative Wheezes or Rales
Gastrointestinal: Soft, Non Tender, Non Distended and Normal Bowel Sounds
Skin: Warm and Dry; Negative Rash or Jaundice
Objective Data
Lab Data
Lab Results
02/13/25 06:41
02/13/25 06:41
Estimated Creat Clear 67 ml/min 02/13/25 06:41
Lactic Acid 0.8 mmol/L (0.7-2.0) 02/04/25 07:35
Total Bilirubin 0.7 mg/dl (0.2-1.3) 02/04/25 05:17
AST 23 U/L (17-59) 02/04/25 05:17
ALT 23 U/L (0-50) 02/04/25 05:17
Alkaline Phosphatase 83 U/L (38-126) 02/04/25 05:17
Most recent labs reviewed.
Micro Results:
02/08/25 15:35 Body Fluid Culture - Final
Pleural Fluid No Growth After 72 Hours
Gram Stain - Final
02/04/25 07:35 Blood Culture - Final
Blood/Venous No Growth - Final Report
02/04/25 07:33 Blood Culture - Final
Blood/Venous No Growth - Final Report
02/05/25 04:56 MRSA Screen - Final
Nose No Methicillin Resistant Staphylococcus aureus isolated.
02/04/25 06:29 Urine Culture - Final
Urine NO GROWTH
02/04/25 05:24 Influenza Types A & B ([facility]) - Final
Nasal Swab Negative for Influenza A & B, NAAT
Negative results must be combined with clinical observations
and patient history.
Nucleic Acid Amplification test (NAAT)performed on the
[employer] platform.
Imaging:
02/04/25 CT chest with contrast: Severe right lower lobe pneumonia containing a central 3.4 cm pulmonary abscess. New mild to moderate acute interstitial and alveolar pulmonary edema. New small right pleural effusion noted. Mildly decreased
bilateral lung volumes. Please see full dictation for additional detail.
--- NOTE | 2025-02-13 13:09 | W.PN.HOSP.TC ---
Today's Communication/Plan
-
Monitor vital signs see plan
Chest tube per pulmonary and IR
Continue antibiotics
Pain control
Wean oxygen as tolerated
Discussed with mother at bedside
Assessment / Plan
Assessment / Plan
Physical Exam
General: No Apparent Distress and Comfortable
HEENT: Moist mucous membranes and Atraumatic
Respiratory: diminished breath sound right lung. +chest tube
Cardiac: S1/S2
GI: Soft, Non Tender and Non Distended
Rectal: No Maroon Stools
Genito-urinary: No Membreno
Musculoskeletal: No Edema
Neuro: Alert and Oriented
Psych: Calm; No Agitated
44 years old male with Down syndrome presented with right sided pneumonia
rapid response 02/05
Likely due to severe pleurisy
d/w parents, started PRN Toradol
# Sepsis, Septic shock ( mild) present on admission with tachycardia, leukocytosis and pneumonia.
# Community-acquired pneumonia
Right lower lobe necrotizing pneumonia with intrapulmonary abscess
Continue antibiotics per infectious disease
Follow-up CT 02/08 with gradual improvement in abscess. However did show moderate right-sided pleural effusion which status post thoracentesis, appears empyema. Now with chest tube,changed 02/12. now draining again. Pulmonary following. Started
intrapleural tPA/DNase, received 02/09,02/10, 02/11, 02/12; chest x-ray 02/13 with a right basilar chest tube
Family denied history of swallowing difficulty or choking. Does have history of GERD.
initial CAT scan showed right lower lobe pneumonia with central 3.4 cm pulmonary abscess; CT chest 02/13 with moderate right pleural effusion. Slightly improving. Needed repositioning of catheter
Speech saw the pt, c/w regular diet
cw abx
Negative COVID and influenza screen
Blood culture NGTD
Negative MRSA
Dry cough with no sputum per family
Tylenol for pleuritic chest pain
No hypoxia reported
Tessalon/Robitussin for cough
Follow-up with ID and pulmonary recommendations
Acute hypoxic respiratory failure likely secondary to right lower lobe necrotizing pneumonia with intrapulmonary abscess
Was once put on 6 L, now on 2 L. Wean oxygen as tolerated
# Pleuritic chest pain
PRN Tylenol
# GERD, PPI
# Hypothyroidism, continue Synthroid
# Down syndrome/ Attention and concentration deficit
Continue home medications
# Gout, continue colchicine
Anticipated Discharge: > 48 hours
Subjective/Interval History
-
Date of Service: February 13, 2025
denies pain
Objective Data
-
Labs:
Laboratory Results
02/13/25
06:41
WBC 10.5
Hgb 11.6 L
Hct 35.1 L
Plt Count 640 H
Sodium 139
Potassium 4.3
Chloride 102
Carbon Dioxide 32 H
BUN 13
Creatinine 1.0
Glucose 100 H
Calcium 8.0 L
Vital Signs:
Vital Signs
Temp Pulse Resp BP Pulse Ox
97.9 F 83 20 123/67 95
02/12/25 22:55 02/13/25 07:00 02/13/25 07:00 02/13/25 07:00 02/13/25 07:00
I&O
02/12/25 02/13/25 02/14/25
06:59 06:59 06:59
Intake Total 1140 / 1140 1680 / 1680
Output Total 50 / 50 165 / 165
Balance 1090 / 1090 1515 / 1515
--- NOTE | 2025-02-13 14:37 | W.PN.PUL3 ---
Today's Communication / Plan
-
Chest tube with output 160mL, would continue to monitor next 24 hours
Speech eval reviewed, VSE study placed
Continue abx
Check VBG in AM
Encouraged position on chest tube to encouraged further output, reassess need for additional lytics
Assessment
-
Patient is a very pleasant 44-year-old gentleman with Down syndrome who was seen in the emergency room accompanied by his father, mother and sister. Patient reportedly has been dealing with cough for close to 2 weeks now. It started with upper
respiratory kind of symptoms. Patient was recently seen in the emergency room on 02 February and was noted to have right lower lobe pneumonia on CT scan. He was started on Augmentin and Zithromax and cefdinir. Patient continued to have cough with
significant right-sided pleuritic chest discomfort particularly with coughing which brought him back to the emergency room. He had a repeat CT done with contrast which was negative for any pulmonary embolism but did show trace pleural effusion
along with right lower lobe pneumonia with developing pulmonary abscess. Pulmonary consultation was requested for further recommendations.
Right lower lobe necrotizing pneumonia with intra-pulmonary abscess s/p chest tube placement
Moderate right-sided pleural effusion, complicated parapneumonic with loculations versus empyema
Leukocytosis
Metabolic alkalosis
Conditions present [employer]
GERD with reported dysphagia
Down Syndrome
Impaired fasting glucose
Mixed hyperlipidemia
Gout
Hypothyroidism, unspecified
Attention and concentration deficit
Plan
Suspect patient has underlying aspiration with resultant right lower lobe pneumonia with pulmonary abscess.
Continue Unasyn per ID. MRSA screen negative
F/u CT 02/08, gradual improvement in abscess
Continue IV Antibiotics for now
RML changes appear to be atelectasis due to enlarging effusion rather than pneumonia.
Empyema s/p chest tube
S/p IR guided drainage on 02/08. In view of loculations noted on imaging, chest tube was placed 02/08
Fluid pH 7.08, LDH of 2500, protein 4.1, consistent with exudate. Cultures negative so far
Started tPA/DNase through chest tube, 02/09. 2nd dose 02/10. >1 ltr output last 24 hrs. 3rd dose 02/11
Output past 24 hours was 165, would monitor another 24 hours
Toradol as needed for pain, symptomatically much improved
No PE noted
02/12. No chest tube output over last [address] chest performed.
Additional loculation noted posteriorly which was not communicating with current tube with overall improved effusion.
I went back and re-examined patient, discussed with the mother, who agreed to proceed with repositioning vs placement of a second chest tube for residual loculated effusion.
Discussed with IR, plan for chest tube revision.
Second chest tube placed, and dose of t-PA given.
CXR in AM reviewed with stable findings of basilar consolidation
Reported history of Polo's esophagus, Schatzki ring s/p esophageal dilation and chronic PPI therapy.
Per family, patient at times coughs while eating. Patient reports dysphagia to larger bites and having to water down the food at times.
This might be etiology of patient's pulmonary process
Recommend soft diet for now
Speech therapy evaluation--No signs concerning for oral/pharyngeal dysphagia. Cannot r/o silent aspiration bedside. Patient's caregiver denied signs of dysphagia prior to admission or repeated PNAs.
Will order VSE
PPI BID for now
On further review, no reported recent dental work or dental abscess. Patient denies any mouth pain.
Reported longstanding history of gastroesophageal reflux disease managed with proton pump inhibitors.
Patient also reports occasional dysphagia particularly to larger bites which she reports that he has to water down.
Reported history of Polo's esophagus and Schatzki rings in the past and recent esophageal dilation as per patient's mother, I do not have access to these records.
Family reports that they have noticed at times patient will cough while eating.
Updated patient's mother at bedside.
Data:
CT CHEST: 02/2025: 1. SEVERE RIGHT LOWER LOBE PNEUMONIA containing a central 3.4 cm pulmonary abscess.
2. New mild to moderate acute interstitial and alveolar pulmonary edema.
3. New small right pleural effusion.
4. Mildly decreased bilateral lung volumes.
Total time spent on this consultation/encounter __45_ minutes which includes review of history, physical exam, medications, laboratory data, personal review of imaging, extensive review of outpatient records, discussion with care team and
respiratory therapy.
Subjective Data
-
Date of Service:
Date of Service: February 13, 2025
Chief Complaint: Pulmonary Follow Up
Subjective:
Offers no complaints, sitting in no acute distress
AVSS
Chest tube in place
Objective Data
Data Reviewed
Vital Signs / I&O / Oxygen:
Vital Signs
Temp Pulse Resp BP Pulse Ox
97.9 F 83 20 123/67 95
02/12/25 22:55 02/13/25 07:00 02/13/25 07:00 02/13/25 07:00 02/13/25 07:00
Intake and Output
02/12/25 02/13/25 02/14/25
06:59 06:59 06:59
Intake Total 1140 / 1140 1680 / 1680
Output Total 50 / 50 165 / 165
Balance 1090 / 1090 1515 / 1515
SaO2 95
Nasal Cannula flow liters per 2
minute
Physical Exam
General: Comfortable and Other (NAD)
HEENT: Normocephalic, Anicteric and Moist Mucous Membranes
Cardiovascular: S1-S2 and Regular Rhythm
Respiratory: Clear, Non-Labored Respirations, Chest Tube and Other (No rhonchi on exam, improving air entry on the right side.)
GI: Soft, Non Distended and Non Tender
Neurology: Awake, Alert and Other (able to answer, follow commands)
Skin: Warm, Dry and Good Color
Labs/Micro/Reports
Lab Data
02/13/25 06:41
02/13/25 06:41
Microbiology
02/08/25 15:35 Pleural Fluid Body Fluid Culture - Final
No Growth After 72 Hours
02/08/25 15:35 Pleural Fluid Gram Stain - Final
[2025-02-13 15:00] VITALS: BP 110/68
[2025-02-13 22:37] VITALS: BP 108/59
[2025-02-14] MEDS: UNASYN IV ×4 (05:07→23:26)
[2025-02-14 06:46] LABS: Venous Blood Gas B.E. 7.9 mmol/L (-4 to +4); Venous Blood Gas HCO3 34.2 mmol/L (22-27); Venous Blood Gas O2 Sat % 90.2 %; Venous Blood Gas pCO2 54 mmHg (35-48); Venous Blood Gas pH 7.41 (7.32-7.43); Venous Blood Gas pO2 59 mmHg (30-50)
[2025-02-14 07:00] LABS: Hematocrit 36.4 % (39.0-52.0); Mean Corpuscular Hgb 30.4 pg (27.0-31.0); Mean Corpuscular Volume 92.2 fL (80.0-94.0); Mean Platelet Volume 9.2 fL (7.4-10.4); Platelet Count 687 10^3/uL (130-400); Red Blood Cell Count 3.95 10^6/uL (4.70-6.10); Red Cell Dist. Width 13.6 % (11.5-14.5); White Blood Cell Count 7.8 10^3/uL (4.8-10.8)
[2025-02-14 07:20] VITALS: BP 115/65
[2025-02-14 07:24] LABS: Blood Urea Nitrogen 14 mg/dl (9-20); Calcium 8.1 mg/dl (8.4-10.2); Carbon Dioxide 32 mmol/L (22-30); Chloride 103 mmol/L (98-107); Estimated Creatinine Clearance 75 ml/min; Glucose 104 mg/dl (70-99); Potassium 4.3 mmol/L (3.5-5.1); Sodium 139 mmol/L (135-145); eGFR > 60.00
[2025-02-14] MEDS: HEPARIN 5000 UNITS SC ×2 (08:45→23:25)
[2025-02-14] MEDS: COLCHICINE 0.6 MG PO (08:45)
[2025-02-14] MEDS: NON-FORMULARY ITEM 27 MG PO (08:49)
[2025-02-14 11:06] LABS: % Basophils 1.3 % (0-2); % Eosinophils 1.3 % (0-6); % Immature Granulocytes 1.7 % (0-0.5); % Lymphocytes 19.8 % (20.5-51.1); % Monocytes 8.4 % (1.7-9.3); % Neutrophils 67.5 % (42.2-75.2); Absolute Basophils 0.1 10^3/uL (0-0.2); Absolute Eosinophils 0.1 10^3/uL (0-0.7); Absolute Immature Granulocytes 0.1 10^3/uL (0-0.05); Absolute Lymphocytes 1.6 10^3/uL (1.2-3.4); Absolute Monocytes 0.7 10^3/uL (0.1-0.6); Absolute Neutrophils 5.3 10^3/uL (1.4-6.5); Nucleated Red Blood Cells % 0 % (-)
--- NOTE | 2025-02-14 11:21 | W.PN.PUL3 ---
Today's Communication / Plan
-
Low output from chest tube today, repeat CXR in AM
May consider discontinuation if fluid improves
Will need outpatient sleep study given VBG results
All plan of care reviewed with mother at bedside
Assessment
-
Patient is a very pleasant 44-year-old gentleman with Down syndrome who was seen in the emergency room accompanied by his father, mother and sister. Patient reportedly has been dealing with cough for close to 2 weeks now. It started with upper
respiratory kind of symptoms. Patient was recently seen in the emergency room on 02 February and was noted to have right lower lobe pneumonia on CT scan. He was started on Augmentin and Zithromax and cefdinir. Patient continued to have cough with
significant right-sided pleuritic chest discomfort particularly with coughing which brought him back to the emergency room. He had a repeat CT done with contrast which was negative for any pulmonary embolism but did show trace pleural effusion
along with right lower lobe pneumonia with developing pulmonary abscess. Pulmonary consultation was requested for further recommendations.
Right lower lobe necrotizing pneumonia with intra-pulmonary abscess s/p chest tube placement
Moderate right-sided pleural effusion, complicated parapneumonic with loculations versus empyema
Leukocytosis
Metabolic alkalosis
Conditions present [employer]GER
GERD with reported dysphagia
Down Syndrome
Impaired fasting glucose
Mixed hyperlipidemia
Gout
Hypothyroidism, unspecified
Attention and concentration deficit
Plan
Suspect patient has underlying aspiration with resultant right lower lobe pneumonia with pulmonary abscess.
Continue Unasyn per ID. MRSA screen negative
F/u CT 02/08, gradual improvement in abscess
Continue IV Antibiotics for now
RML changes appear to be atelectasis due to enlarging effusion rather than pneumonia.
Empyema s/p chest tube
S/p IR guided drainage on 02/08. In view of loculations noted on imaging, chest tube was placed 02/08
Fluid pH 7.08, LDH of 2500, protein 4.1, consistent with exudate. Cultures negative so far
Started tPA/DNase through chest tube, 02/09. 2nd dose 02/10. >1 ltr output last 24 hrs. 3rd dose 02/11
Output past 24 hours was 5mL, would monitor another 24 hours
Repeat CXR in AM
Toradol as needed for pain, symptomatically much improved
No PE noted
02/12. No chest tube output over last [address] chest performed.
Additional loculation noted posteriorly which was not communicating with current tube with overall improved effusion.
I went back and re-examined patient, discussed with the mother, who agreed to proceed with repositioning vs placement of a second chest tube for residual loculated effusion.
Discussed with IR, plan for chest tube revision.
Second chest tube placed, and dose of t-PA given.
Had multiple doses of tpA/Dornase, if not giving further benefit could consider discontinuation and observation if output remains low
Would avoid major surgical intervention in this patient
Reported history of Polo's esophagus, Schatzki ring s/p esophageal dilation and chronic PPI therapy.
Per family, patient at times coughs while eating. Patient reports dysphagia to larger bites and having to water down the food at times.
This might be etiology of patient's pulmonary process
Recommend soft diet for now
Speech therapy evaluation--No signs concerning for oral/pharyngeal dysphagia. Cannot r/o silent aspiration bedside. Patient's caregiver denied signs of dysphagia prior to admission or repeated PNAs.
Will order VSE
PPI BID for now
On further review, no reported recent dental work or dental abscess. Patient denies any mouth pain.
Reported longstanding history of gastroesophageal reflux disease managed with proton pump inhibitors.
Patient also reports occasional dysphagia particularly to larger bites which she reports that he has to water down.
Reported history of Polo's esophagus and Schatzki rings in the past and recent esophageal dilation as per patient's mother, I do not have access to these records.
Family reports that they have noticed at times patient will cough while eating.
Met alk noted, check VBG - 7.41-54 showing chronic hypercarbia
Suspect underlying JULIAN, mother does note snoring
JULIAN is commonly seen in Down's patients, can arrange OP PSG
I updated patient's mother at bedside today extensively.
Data:
CT CHEST: 02/2025: 1. SEVERE RIGHT LOWER LOBE PNEUMONIA containing a central 3.4 cm pulmonary abscess.
2. New mild to moderate acute interstitial and alveolar pulmonary edema.
3. New small right pleural effusion.
4. Mildly decreased bilateral lung volumes.
Total time spent on this consultation/encounter __51_ minutes which includes review of history, physical exam, medications, laboratory data, personal review of imaging, extensive review of outpatient records, discussion with care team and
respiratory therapy.
Subjective Data
-
Date of Service:
Date of Service: February 14, 2025
Chief Complaint: Pulmonary Follow Up
Subjective:
No new issues, chest tube remains
Mother at bedside
Objective Data
Data Reviewed
Vital Signs / I&O / Oxygen:
Vital Signs
Temp Pulse Resp BP Pulse Ox
98.2 F 98 18 115/65 98
02/14/25 07:20 02/14/25 07:20 02/14/25 07:20 02/14/25 07:20 02/14/25 07:20
Intake and Output
02/13/25 02/14/25 02/15/25
06:59 06:59 06:59
Intake Total 1680 / 1680 540 / 540
Output Total 165 / 165 75 / 75 5 / 5
Balance 1515 / 1515 465 / 465 -5 / -5
SaO2 98
Nasal Cannula flow liters per 2
minute
Physical Exam
General: Comfortable and Other (NAD)
HEENT: Normocephalic, Anicteric and Moist Mucous Membranes
Cardiovascular: S1-S2 and Regular Rhythm
Respiratory: Clear, Non-Labored Respirations, Chest Tube and Other (No rhonchi on exam, improving air entry on the right side.)
GI: Soft, Non Distended and Non Tender
Neurology: Awake, Alert and Other (able to answer, follow commands)
Skin: Warm, Dry and Good Color
Labs/Micro/Reports
Lab Data
02/14/25 06:39
02/14/25 06:39
Microbiology
02/08/25 15:35 Pleural Fluid Body Fluid Culture - Final
No Growth After 72 Hours
02/08/25 15:35 Pleural Fluid Gram Stain - Final
--- NOTE | 2025-02-14 12:13 | W.PN.HOSP.TC ---
Today's Communication/Plan
-
Monitor vital signs see plan
Continue with antibiotics
Wean oxygen as tolerated
Chest tube per IR and pulmonary
Assessment / Plan
Assessment / Plan
Physical Exam
General: No Apparent Distress and Comfortable
HEENT: Moist mucous membranes and Atraumatic
Respiratory: diminished breath sound right lung. +chest tube
Cardiac: S1/S2
GI: Soft, Non Tender and Non Distended
Genito-urinary: No Membreno
Musculoskeletal: No Edema
Neuro: Alert and Oriented
Psych: Calm; No Agitated
44 years old male with Down syndrome presented with right sided pneumonia
# Sepsis, Septic shock ( mild) present on admission with tachycardia, leukocytosis and pneumonia.
# Community-acquired pneumonia
Right lower lobe necrotizing pneumonia with intrapulmonary abscess
Continue antibiotics per infectious disease
Follow-up CT 02/08 with gradual improvement in abscess. However did show moderate right-sided pleural effusion which status post thoracentesis, appears empyema. Now with chest tube,changed 02/12. now draining again. Pulmonary following. Started
intrapleural tPA/DNase, received 02/09,02/10, 02/11, 02/12; chest x-ray 02/13 with a right basilar chest tube
Family denied history of swallowing difficulty or choking. Does have history of GERD.
initial CAT scan showed right lower lobe pneumonia with central 3.4 cm pulmonary abscess; CT chest 02/13 with moderate right pleural effusion. Slightly improving. Needed repositioning of catheter
Speech saw the pt, c/w regular diet
check VSE for silnet aspiration per pulm, unsure if be able to be compliant with study
cw abx
Negative COVID and influenza screen
Blood culture NGTD
Negative MRSA
Dry cough with no sputum per family
Tylenol for pleuritic chest pain
No hypoxia reported while eating
Follow-up with ID and pulmonary recommendations
Acute hypoxic respiratory failure likely secondary to right lower lobe necrotizing pneumonia with intrapulmonary abscess
Was once put on 6 L, now on 2 L. Wean oxygen as tolerated
rapid response 4/4
Likely due to severe pleurisy
d/w parents, started PRN Toradol
# Pleuritic chest pain
PRN Tylenol
# GERD, PPI
# Hypothyroidism, continue Synthroid
# Down syndrome/ Attention and concentration deficit
Continue home medications
# Gout, continue colchicine
Anticipated Discharge: 24 - 48 hours
Subjective/Interval History
-
Date of Service: February 14, 2025
Denies nausea
Objective Data
-
Labs:
Laboratory Results
02/14/25
06:39
WBC 7.8
Hgb 12.0 L
Hct 36.4 L
Plt Count 687 H
Sodium 139
Potassium 4.3
Chloride 103
Carbon Dioxide 32 H
BUN 14
Creatinine 0.9
Glucose 104 H
Calcium 8.1 L
Vital Signs:
Vital Signs
Temp Pulse Resp BP Pulse Ox
98.2 F 98 18 115/65 98
02/14/25 07:20 02/14/25 07:20 02/14/25 07:20 02/14/25 07:20 02/14/25 07:20
I&O
02/13/25 02/14/25 02/15/25
06:59 06:59 06:59
Intake Total 1680 / 1680 540 / 540
Output Total 165 / 165 75 / 75 5 / 5
Balance 1515 / 1515 465 / 465 -5 / -5
[2025-02-14] MEDS: PROTONIX 40 MG PO (12:25)
[2025-02-14 15:20] VITALS: BP 102/59
[2025-02-14 23:26] VITALS: BP 98/70
[2025-02-15] MEDS: UNASYN IV ×2 (05:50→12:27)
[2025-02-15] MEDS: SYNTHROID 137 MCG PO (05:50)
[2025-02-15 06:54] LABS: % Basophils 1.4 % (0-2); % Eosinophils 1.4 % (0-6); % Immature Granulocytes 1.7 % (0-0.5); % Lymphocytes 25.8 % (20.5-51.1); % Monocytes 7.4 % (1.7-9.3); % Neutrophils 62.3 % (42.2-75.2); Absolute Basophils 0.1 10^3/uL (0-0.2); Absolute Eosinophils 0.1 10^3/uL (0-0.7); Absolute Immature Granulocytes 0.1 10^3/uL (0-0.05); Absolute Lymphocytes 1.9 10^3/uL (1.2-3.4); Absolute Monocytes 0.5 10^3/uL (0.1-0.6); Absolute Neutrophils 4.5 10^3/uL (1.4-6.5); Hematocrit 38.1 % (39.0-52.0); Hemoglobin 12.6 g/dL (13.0-18.0); Mean Corp Hgb Conc. 33.1 g/dL (33.0-37.0); Mean Corpuscular Hgb 30.5 pg (27.0-31.0); Mean Corpuscular Volume 92.3 fL (80.0-94.0); Mean Platelet Volume 9.3 fL (7.4-10.4); Nucleated Red Blood Cells % 0 % (-); Platelet Count 800 10^3/uL (130-400); Red Blood Cell Count 4.13 10^6/uL (4.70-6.10); Red Cell Dist. Width 13.5 % (11.5-14.5); White Blood Cell Count 7.2 10^3/uL (4.8-10.8)
[2025-02-15 07:00] VITALS: BP 120/75
[2025-02-15 07:25] LABS: Blood Urea Nitrogen 13 mg/dl (9-20); Calcium 8.4 mg/dl (8.4-10.2); Carbon Dioxide 31 mmol/L (22-30); Chloride 100 mmol/L (98-107); Estimated Creatinine Clearance 67 ml/min; Glucose 111 mg/dl (70-99); Potassium 4.5 mmol/L (3.5-5.1); Sodium 139 mmol/L (135-145); eGFR > 60.00
[2025-02-15] MEDS: NON-FORMULARY ITEM 27 MG PO (08:51)
[2025-02-15] MEDS: COLCHICINE 0.6 MG PO (08:51)
[2025-02-15] MEDS: PROTONIX 40 MG PO (08:51)
--- NOTE | 2025-02-15 08:51 | W.PN.HOSP.TC ---
Today's Communication/Plan
-
f/w pulmonary recommendations regarding chest tube
Assessment / Plan
Assessment / Plan
Physical Exam
General: No Apparent Distress and Comfortable
HEENT: Moist mucous membranes and Atraumatic
Respiratory: diminished breath sound right lung. +chest tube
Cardiac: S1/S2
GI: Soft, Non Tender and Non Distended
Genito-urinary: No Membreno
Musculoskeletal: No Edema
Neuro: Alert and Oriented
Psych: Calm; No Agitated
44 years old male with Down syndrome presented with right sided pneumonia
# Sepsis, Septic shock ( mild) present on admission with tachycardia, leukocytosis and pneumonia.
# Community-acquired pneumonia
Right lower lobe necrotizing pneumonia with intrapulmonary abscess
Continue antibiotics per infectious disease
Follow-up CT 02/08 with gradual improvement in abscess. However did show moderate right-sided pleural effusion which status post thoracentesis, appears empyema. Now with chest tube,changed 02/12. now draining again. Pulmonary following. Started
intrapleural tPA/DNase, received 02/09,02/10, 02/11, 02/12; chest x-ray 02/13 with a right basilar chest tube
Family denied history of swallowing difficulty or choking. Does have history of GERD.
initial CAT scan showed right lower lobe pneumonia with central 3.4 cm pulmonary abscess; CT chest 02/13 with moderate right pleural effusion. Slightly improving. Needed repositioning of catheter
Speech saw the pt, c/w regular diet
check VSE for silnet aspiration per pulm, unsure if be able to be compliant with study
cw abx
Negative COVID and influenza screen
Blood culture NGTD
Negative MRSA
Dry cough with no sputum per family
Tylenol for pleuritic chest pain
No hypoxia reported while eating
Follow-up with ID and pulmonary recommendations
Acute hypoxic respiratory failure likely secondary to right lower lobe necrotizing pneumonia with intrapulmonary abscess
Was once put on 6 L, now on 2 L. Wean oxygen as tolerated
rapid response 4
Likely due to severe pleurisy
d/w parents, started PRN Toradol
# Pleuritic chest pain
PRN Tylenol
# GERD, PPI
# Hypothyroidism, continue Synthroid
# Down syndrome/ Attention and concentration deficit
Continue home medications
# Gout, continue colchicine
Total time spent to see the patient, examine the patient, review data and lab results, discuss treatment plan with patient and nursing staff around 55 minutes
Anticipated Discharge: 24 - 48 hours
Subjective/Interval History
-
Date of Service: February 15, 2025
No fever
No hypoxia
No sob
Objective Data
-
Labs:
Laboratory Results
02/15/25
06:30
WBC 7.2
Hgb 12.6 L
Hct 38.1 L
Plt Count 800 H
Sodium 139
Potassium 4.5
Chloride 100
Carbon Dioxide 31 H
BUN 13
Creatinine 1.0
Glucose 111 H
Calcium 8.4
Vital Signs:
Vital Signs
Temp Pulse Resp BP Pulse Ox
97.7 F 73 18 98/70 96
02/14/25 23:26 02/14/25 23:26 02/14/25 23:26 02/14/25 23:26 02/14/25 23:26
I&O
02/14/25 02/15/25 02/16/25
06:59 06:59 06:59
Intake Total 540 / 540 1939
Output Total 75 / 75
Balance 465 / 465 1924
[2025-02-15] MEDS: HEPARIN SC (09:00)
--- NOTE | 2025-02-15 10:41 | W.PN.PUL3 ---
Today's Communication / Plan
-
Continue to biotics
Discontinue chest tube today
Aspiration precaution
Follow-up video barium swallow testing results
Increase activity as able
Encourage incentive spirometer
Eventual outpatient radiographic follow-up
Assessment
-
Patient is a very pleasant 44-year-old gentleman with Down syndrome who was seen in the emergency room accompanied by his father, mother and sister. Patient reportedly has been dealing with cough for close to 2 weeks now. It started with upper
respiratory kind of symptoms. Patient was recently seen in the emergency room on 02 February and was noted to have right lower lobe pneumonia on CT scan. He was started on Augmentin and Zithromax and cefdinir. Patient continued to have cough with
significant right-sided pleuritic chest discomfort particularly with coughing which brought him back to the emergency room. He had a repeat CT done with contrast which was negative for any pulmonary embolism but did show trace pleural effusion
along with right lower lobe pneumonia with developing pulmonary abscess. Pulmonary consultation was requested for further recommendations.
Right lower lobe necrotizing pneumonia with intra-pulmonary abscess s/p chest tube placement
Moderate right-sided pleural effusion, complicated parapneumonic with loculations versus empyema
Leukocytosis
Metabolic alkalosis
Conditions present [employer]
GERD with reported dysphagia
Down Syndrome
Impaired fasting glucose
Mixed hyperlipidemia
Gout
Hypothyroidism, unspecified
Attention and concentration deficit
Plan
Suspect patient has underlying aspiration with resultant right lower lobe pneumonia with pulmonary abscess.
Continue Unasyn per ID. MRSA screen negative
Leukocytosis resolved
Afebrile
F/u CT , gradual improvement in abscess residual pleural effusion.
Right Empyema s/p chest tube
S/p IR guided drainage on 02/08. In view of loculations noted on imaging, chest tube was placed 02/08
Fluid pH 7.08, LDH of 2500, protein 4.1, consistent with exudate. Cultures negative so far
Status post tPA/DNase through chest tube, 02/09. 2nd dose 02/10. >1 ltr output last 24 hrs. 3rd dose 02/11
Output past 24 hours was 5mL, would monitor another 24 hours
Chest x-ray 02/15/2025: Likely small pleural effusion with subsegmental atelectasis/infiltrate. No worse than prior.
Overnight output 02/15/2025:10cc
Clinically improved.
Will DC chest tube -IR notified and consulted.
Will need radiographic follow up in the outpx setting in next few weeks.
Toradol as needed for pain, symptomatically much improved
Would avoid major surgical intervention in this patient
-
Reported longstanding history of gastroesophageal reflux disease managed with proton pump inhibitors.
Reported history of Polo's esophagus, Schatzki ring s/p esophageal dilation and chronic PPI therapy. High risk for aspiration.
Per family, patient at times coughs while eating. Patient reports dysphagia to larger bites and having to water down the food at times.
This might be etiology of patient's pulmonary process
Speech therapy evaluation--No signs concerning for oral/pharyngeal dysphagia. Cannot r/o silent aspiration bedside. Patient's caregiver denied signs of dysphagia prior to admission or repeated PNAs.
VSE done today-official report pending.
PPI BID for now
On further review, no reported recent dental work or dental abscess. Patient denies any mouth pain.
-
Met alk noted, check VBG - 7.41-54 showing chronic hypercarbia
Suspect underlying JULIAN, mother does note snoring
JULIAN is commonly seen in Down's patients, can arrange OP PSG- information will be left on chart.
patient's mother at bedside today extensively by pulmonary team.
Data:
CT CHEST: 02/2025: 1. SEVERE RIGHT LOWER LOBE PNEUMONIA containing a central 3.4 cm pulmonary abscess.
2. New mild to moderate acute interstitial and alveolar pulmonary edema.
3. New small right pleural effusion.
4. Mildly decreased bilateral lung volumes.
Total time spent on this consultation/encounter __51_ minutes which includes review of history, physical exam, medications, laboratory data, personal review of imaging, extensive review of outpatient records, discussion with care team and
respiratory therapy.
Subjective Data
-
Date of Service:
Date of Service: February 15, 2025
Chief Complaint: Pulmonary Follow Up
Subjective:
No overnight events
Remains afebrile
Strong cough effort
Review of Systems
Cardiopulmonary: Dyspnea (none at rest)
GI: Abdominal Pain (n) and Nausea (n)
Neuro: Headache (n)
Objective Data
Data Reviewed
Vital Signs / I&O / Oxygen:
Vital Signs
Temp Pulse Resp BP Pulse Ox
97.6 F 66 18 120/75 96
02/15/25 07:00 02/15/25 07:00 02/15/25 07:00 02/15/25 07:00 02/15/25 07:00
Intake and Output
02/14/25 02/15/25 02/16/25
06:59 06:59 06:59
Intake Total 540 / 540 1939
Output Total 75 / 75
Balance 465 / 465 1924
SaO2 96
Nasal Cannula flow liters per 2
minute
Physical Exam
General: Comfortable and Other (NAD)
HEENT: Normocephalic, Anicteric and Moist Mucous Membranes
Cardiovascular: S1-S2 and Regular Rhythm
Respiratory: Clear, Non-Labored Respirations, Chest Tube and Other (No rhonchi on exam, improving air entry on the right side.)
GI: Soft, Non Distended and Non Tender
Neurology: Awake, Alert and Other (able to answer, follow commands)
Skin: Warm, Dry and Good Color
Labs/Micro/Reports
Lab Data
02/15/25 06:30
02/15/25 06:30
--- NOTE | 2025-02-15 11:12 | PTOTSP ---
Video Swallow Examination
Oral pharyngeal swallow deemed grossly within functional limits with no laryngeal penetration or aspiration observed. Mild pharyngeal stasis with solids cleared with secondary swallows. Retained contrast noted during lateral sweep of esophagus
though patient with history of GERD, Polo's, and Schatzki's ring s/p dilation.
Recommend
1. Continue regular solids and thin liquids
2. Meds with liquid or as best tolerated.
3. Upright with meals and for at least 30 minutes after.
4. Monitor for appropriate rate as mother reports patient will sometimes eat quickly.
No further skilled ST indicated at this time.
--- NOTE | 2025-02-15 13:00 | PN.IRAD.UPD ---
Update Note - IRAD
- -
Right chest tube removed per , no complaints from patient, dressed with vasigauze and occlusive dressing.
--- NOTE | 2025-02-15 13:39 | CM ---
Addendum entered by Mary Stone 02/15/25 16:14:
Patient seen bedside with MORRIS Salgado. Per Naomi, team through [facility] [employer] agency will be available for bedside teaching Saturday. Unsure regarding where patient is discharging to at this time, may be apartment in [facility]- will confirm
with Naomi tomorrow regarding where patient will be discharged to to set up [facility] delivery, will update Nargis VALDEZ on discharge.
Addendum entered by Mary Stone 02/15/25 15:49:
Patient seen bedside with father, patient will require IV antibiotics upon discharge. Father confirms patient will not be discharging home, will be working with [facility] [employer] to determine bedside teaching/discharge plan. Script/clinicals faxed to
[facility].
Original Note:
CM reviewed chart, patient seen bedside with mother. Per Pulm, discontinue chest tube today. Will await to see if patient will continue to need IV antibiotics upon discharge. CM spoke with MORRIS Salgado from [facility] [employer], will be in to see patient
today, requesting PT to work with patient specifically with steps as patient lives in a three story complex with no elevator. Naomi reports if patient is to be discharged on IV antibiotics, he will likely go home with his parents. TT to
Hospitalist with request for PT. CM will continue to follow for all discharge planning needs.
Plan; home with Nargis, if home with IV antibiotics, will discharge to parents home versus apartment with [facility]
--- NOTE | 2025-02-15 14:52 | W.PN.ID1 ---
Date of Service
Date of Service: February 15, 2025
Today's Communication
Continue antibiotics.
Assessment / Plan
Right lower lobe pneumonia
Suspected evolving pulmonary abscess
Parapneumonic effusion
- CT in place
Leukocytosis
Thrombocytosis
Hx Down's syndrome
Thyroid disease
Gout
Hx GERD
Recommendations:
Chest tube now out.
Currently on Unasyn (day #12)
Transition to ceftriaxone 2 g IV every 24 hours.
Patient will require 6-week course of antibiotics. Home infusion sheet placed on paper chart.
Continue to monitor white count and temperature curve.
����������������������������������������������������������
Chief Complaint
-: Pneumonia and Other (Suspected evolving pulmonary abscess)
Subjective / Review of Systems
Review of Systems: No Fever and No Chills
Vital Signs / Physical Exam
Vital Signs
Vital Signs
Temp Pulse Resp BP Pulse Ox
97.6 F 66 18 120/75 96
02/15/25 07:00 02/15/25 07:00 02/15/25 07:00 02/15/25 07:00 02/15/25 07:00
Physical Exam
Constitutional: No Acute Distress, Comfortable and Non-toxic
Cardiovascular: S1/S2; Negative S3/S4
Pulmonary: Coarse and Non Labored; Negative Wheezes or Rhonchi
Gastrointestinal: Soft, Non Tender and Non Distended
Neurological: Awake and Alert
Psychological: Calm
Objective Data
Lab Data
Lab Results
02/15/25 06:30
02/15/25 06:30
Estimated Creat Clear 67 ml/min 02/15/25 06:30
Lactic Acid 0.8 mmol/L (0.7-2.0) 02/04/25 07:35
Total Bilirubin 0.7 mg/dl (0.2-1.3) 02/04/25 05:17
AST 23 U/L (17-59) 02/04/25 05:17
ALT 23 U/L (0-50) 02/04/25 05:17
Alkaline Phosphatase 83 U/L (38-126) 02/04/25 05:17
Most recent labs reviewed.
Micro Results:
02/08/25 15:35 Body Fluid Culture - Final
Pleural Fluid No Growth After 72 Hours
Gram Stain - Final
02/04/25 07:35 Blood Culture - Final
Blood/Venous No Growth - Final Report
02/04/25 07:33 Blood Culture - Final
Blood/Venous No Growth - Final Report
02/05/25 04:56 MRSA Screen - Final
Nose No Methicillin Resistant Staphylococcus aureus isolated.
02/04/25 06:29 Urine Culture - Final
Urine NO GROWTH
02/04/25 05:24 Influenza Types A & B (POPEYE) - Final
Nasal Swab Negative for Influenza A & B, NAAT
Negative results must be combined with clinical observations
and patient history.
Nucleic Acid Amplification test (NAAT)performed on the
[employer] platform.
Imaging:
02/15/25 CXR (portable): Right basilar pigtail chest tube in stable position. Low lung volumes noted. Bibasilar opacification, right greater than left, is without significant change. No pneumothorax seen. Please see full dictation for additional
detail.
02/04/25 CT chest with contrast: Severe right lower lobe pneumonia containing a central 3.4 cm pulmonary abscess. New mild to moderate acute interstitial and alveolar pulmonary edema. New small right pleural effusion noted. Mildly decreased
bilateral lung volumes. Please see full dictation for additional detail.
[2025-02-15 15:00] VITALS: BP 116/68
[2025-02-15] MEDS: ROCEPHIN 2000 MG IV (17:55)
[2025-02-15] MEDS: STERILE WATER FOR INJECTION 20 ML IV (17:56)
[2025-02-15] MEDS: HEPARIN 5000 UNITS SC (22:09)
[2025-02-15 23:06] VITALS: BP 94/56
[2025-02-16 07:00] VITALS: BP 102/66
[2025-02-16] MEDS: SYNTHROID 137 MCG PO (07:21)
[2025-02-16] MEDS: NON-FORMULARY ITEM 27 MG PO (07:45)
[2025-02-16] MEDS: HEPARIN 5000 UNITS SC ×2 (07:47→21:20)
[2025-02-16] MEDS: COLCHICINE 0.6 MG PO (07:47)
[2025-02-16] MEDS: PROTONIX 40 MG PO (07:47)
--- NOTE | 2025-02-16 08:27 | W.PN.HOSP.TC ---
Today's Communication/Plan
-
dc planning
Assessment / Plan
Assessment / Plan
Physical Exam
General: No Apparent Distress and Comfortable
HEENT: Moist mucous membranes and Atraumatic
Respiratory: diminished breath sound right lung. +chest tube
Cardiac: S1/S2
GI: Soft, Non Tender and Non Distended
Genito-urinary: No Membreno
Musculoskeletal: No Edema
Neuro: Alert and Oriented
Psych: Calm; No Agitated
44 years old male with Down syndrome presented with right sided pneumonia
# Sepsis, Septic shock ( mild) present on admission with tachycardia, leukocytosis and pneumonia.
# Community-acquired pneumonia
Right lower lobe necrotizing pneumonia with intrapulmonary abscess
Resolving
c/w IV Rocephin 2 gm for total 6 weeks.
Speech evaluated twice, c/w regular diet
Negative COVID and influenza screen
Blood culture NGTD
Negative MRSA
pleuritic chest pain has resolved.
No hypoxia
Appreciate ID and pulmonary recommendations
Order pic line 02/16
Acute hypoxic respiratory failure likely secondary to right lower lobe necrotizing pneumonia with intrapulmonary abscess
resolved.
# Pleuritic chest pain
Resolved.
# Right Empyema s/p chest tube
S/p IR guided drainage on 02/08. s/p chest tube was placed 02/08, removed 02/15.
Fluid pH 7.08, LDH of 2500, protein 4.1, consistent with exudate. Cultures negative so far
Status post tPA/DNase through chest tube, 02/09. 2nd dose 02/10.
Chest x-ray 02/15/2025: Likely small pleural effusion with subsegmental atelectasis/infiltrate. No worse than prior and low output < 10cc.
Pulmonary doctor recommended radiographic follow up in the outpx setting in next few weeks.
# GERD, PPI
history of Polo's esophagus, Schatzki ring s/p esophageal dilation and chronic PPI therapy. Video swallow 02/15 was done, continue with regular solids and thin liquids.
# Hypothyroidism, continue Synthroid
# Down syndrome/ Attention and concentration deficit
Continue home medications
# Gout, continue colchicine
Total discharge time spent to see the patient, examine the patient, review data and lab results, discuss discharge plan with patient and nursing staff around 65 minutes
Anticipated Discharge: Today
Subjective/Interval History
-
Date of Service: February 16, 2025
No sob
No chest pain
Denies cough
No fevers or chills
Objective Data
-
Vital Signs:
Vital Signs
Temp Pulse Resp BP Pulse Ox
97.5 F 68 18 94/56 97
02/15/25 23:06 02/15/25 23:06 02/15/25 23:06 02/15/25 23:06 02/15/25 23:06
I&O
02/15/25 02/16/25 02/17/25
06:59 06:59 06:59
Intake Total 1939 100 / 100
Output Total 300 / 300
Balance 1924 -200 / -200
--- NOTE | 2025-02-16 08:45 | W.PN.ID1 ---
Date of Service
Date of Service: February 16, 2025
Today's Communication
Continue abx.
Assessment / Plan
Right lower lobe pneumonia
Suspected evolving pulmonary abscess
Parapneumonic effusion
- CT in place
Leukocytosis
Thrombocytosis
Hx Down's syndrome
Thyroid disease
Gout
Hx GERD
Recommendations:
Continue ceftriaxone 2 g IV every 24 hours (d#13 abx)
Patient will require 6-week course of antibiotics. Home infusion sheet placed on paper chart.
PICC line once home infusion benefit confirmed.
Continue to monitor white count and temperature curve.
F/U imaging in 4-6 weeks.
����������������������������������������������������������
Chief Complaint
-: Pneumonia and Other (Parapneumonic effusion)
Subjective / Review of Systems
Review of Systems: No Fever, No Chills, No Cough and No Sputum Production
Vital Signs / Physical Exam
Vital Signs
Vital Signs
Temp Pulse Resp BP Pulse Ox
97.5 F 68 18 94/56 97
02/15/25 23:06 02/15/25 23:06 02/15/25 23:06 02/15/25 23:06 02/15/25 23:06
Physical Exam
Constitutional: No Acute Distress, Comfortable and Non-toxic
Eyes: Sclera Anicteric
Cardiovascular: S1/S2; Negative S3/S4
Pulmonary: Coarse and Non Labored; Negative Wheezes or Rhonchi
Gastrointestinal: Soft, Non Tender and Non Distended
Extremities: Negative Cyanosis or Erythema
Neurological: Awake and Alert
Psychological: Calm
Objective Data
Lab Data
Lab Results
02/15/25 06:30
02/15/25 06:30
Estimated Creat Clear 67 ml/min 02/15/25 06:30
Lactic Acid 0.8 mmol/L (0.7-2.0) 02/04/25 07:35
Total Bilirubin 0.7 mg/dl (0.2-1.3) 02/04/25 05:17
AST 23 U/L (17-59) 02/04/25 05:17
ALT 23 U/L (0-50) 02/04/25 05:17
Alkaline Phosphatase 83 U/L (38-126) 02/04/25 05:17
Most recent labs reviewed.
Micro Results:
02/08/25 15:35 Body Fluid Culture - Final
Pleural Fluid No Growth After 72 Hours
Gram Stain - Final
02/04/25 07:35 Blood Culture - Final
Blood/Venous No Growth - Final Report
02/04/25 07:33 Blood Culture - Final
Blood/Venous No Growth - Final Report
02/05/25 04:56 MRSA Screen - Final
Nose No Methicillin Resistant Staphylococcus aureus isolated.
02/04/25 06:29 Urine Culture - Final
Urine NO GROWTH
02/04/25 05:24 Influenza Types A & B (POPEYE) - Final
Nasal Swab Negative for Influenza A & B, NAAT
Negative results must be combined with clinical observations
and patient history.
Nucleic Acid Amplification test (NAAT)performed on the
[employer] platform.
Imaging:
02/15/25 CXR (portable): Right basilar pigtail chest tube in stable position. Low lung volumes noted. Bibasilar opacification, right greater than left, is without significant change. No pneumothorax seen. Please see full dictation for additional
detail.
02/04/25 CT chest with contrast: Severe right lower lobe pneumonia containing a central 3.4 cm pulmonary abscess. New mild to moderate acute interstitial and alveolar pulmonary edema. New small right pleural effusion noted. Mildly decreased
bilateral lung volumes. Please see full dictation for additional detail.
--- NOTE | 2025-02-16 10:11 | W.PN.PUL3 ---
Today's Communication / Plan
-
DC planning
outpatient radiographic follow up.
Information left on Chart to follow up in next 2 weeks.
Sign off
Assessment
-
Patient is a very pleasant 44-year-old gentleman with Down syndrome who was seen in the emergency room accompanied by his father, mother and sister. Patient reportedly has been dealing with cough for close to 2 weeks now. It started with upper
respiratory kind of symptoms. Patient was recently seen in the emergency room on 02 February and was noted to have right lower lobe pneumonia on CT scan. He was started on Augmentin and Zithromax and cefdinir. Patient continued to have cough with
significant right-sided pleuritic chest discomfort particularly with coughing which brought him back to the emergency room. He had a repeat CT done with contrast which was negative for any pulmonary embolism but did show trace pleural effusion
along with right lower lobe pneumonia with developing pulmonary abscess. Pulmonary consultation was requested for further recommendations.
Right lower lobe necrotizing pneumonia with intra-pulmonary abscess s/p chest tube placement
Moderate right-sided pleural effusion, complicated parapneumonic with loculations versus empyema
Leukocytosis
Metabolic alkalosis
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
GERD with reported dysphagia
Down Syndrome
Impaired fasting glucose
Mixed hyperlipidemia
Gout
Hypothyroidism, unspecified
Attention and concentration deficit
Plan
Suspect patient has underlying aspiration with resultant right lower lobe pneumonia with pulmonary abscess.
Continue Unasyn per ID. MRSA screen negative
Leukocytosis resolved
Afebrile
F/u CT , gradual improvement in abscess residual pleural effusion.
Right Empyema s/p chest tube
S/p IR guided drainage on 02/08. In view of loculations noted on imaging, chest tube was placed 02/08
Fluid pH 7.08, LDH of 2500, protein 4.1, consistent with exudate. Cultures negative so far
Status post tPA/DNase through chest tube, 02/09. 2nd dose 02/10. >1 ltr output last 24 hrs. 3rd dose 02/11
Output past 24 hours was 5mL, would monitor another 24 hours
Chest x-ray 02/15/2025: Likely small pleural effusion with subsegmental atelectasis/infiltrate. No worse than prior.
Overnight output 02/15/2025:10cc
Clinically improved.
Chest tube discontinued 02/15/2025
Will need radiographic follow up in the outpx setting in next few weeks.
-
Reported longstanding history of gastroesophageal reflux disease managed with proton pump inhibitors.
Reported history of Polo's esophagus, Schatzki ring s/p esophageal dilation and chronic PPI therapy. High risk for aspiration.
Per family, patient at times coughs while eating. Patient reports dysphagia to larger bites and having to water down the food at times.
This might be etiology of patient's pulmonary process
Speech therapy evaluation--No signs concerning for oral/pharyngeal dysphagia. Cannot r/o silent aspiration bedside. Patient's caregiver denied signs of dysphagia prior to admission or repeated PNAs.
VSE 02/15/2025 noted- No overt aspiration.
PPI BID for now
-
Met alk noted, check VBG - 7.41-54 showing chronic hypercarbia
Suspect underlying JULIAN, mother does note snoring
JULIAN is commonly seen in Down's patients, can arrange OP PSG- information will be left on chart.
patient's mother at bedside today extensively by pulmonary team.
Agree with DC planning.
Will sign off.
Data:
CT CHEST: 02/2025: 1. SEVERE RIGHT LOWER LOBE PNEUMONIA containing a central 3.4 cm pulmonary abscess.
2. New mild to moderate acute interstitial and alveolar pulmonary edema.
3. New small right pleural effusion.
4. Mildly decreased bilateral lung volumes.
Subjective Data
-
Date of Service:
Date of Service: February 16, 2025
Chief Complaint: Pulmonary Follow Up
Subjective:
No new complaints.
Afebrile
Denies chest pain
Review of Systems
Cardiopulmonary: Dyspnea (none at rest), Cough (n) and Sputum Production (n)
GI: Abdominal Pain (n) and Nausea (n)
Objective Data
Data Reviewed
Vital Signs / I&O / Oxygen:
Vital Signs
Temp Pulse Resp BP Pulse Ox
97.6 F 70 20 102/66 94
02/16/25 07:00 02/16/25 07:00 02/16/25 07:00 02/16/25 07:00 02/16/25 07:00
Intake and Output
02/15/25 02/16/25 02/17/25
06:59 06:59 06:59
Intake Total 1939 100 / 100
Output Total 300 / 300
Balance 1924 / 1924 -200 / -200
SaO2 94
Nasal Cannula flow liters per 2
minute
Physical Exam
General: Comfortable and Other (NAD)
HEENT: Normocephalic, Anicteric and Moist Mucous Membranes
Cardiovascular: S1-S2 and Regular Rhythm
Respiratory: Clear, Non-Labored Respirations and Other (No rhonchi on exam, improving air entry on the right side.)
GI: Soft, Non Distended and Non Tender
Neurology: Awake, Alert and Other (able to answer, follow commands)
Skin: Warm, Dry and Good Color
Labs/Micro/Reports
Lab Data
02/15/25 06:30
02/15/25 06:30
--- NOTE | 2025-02-16 11:16 | CM ---
Addendum entered by Mary Stone 02/16/25 15:16:
JANIE spoke with Papito from [facility] who communicated directly with Naomi from [facility], nurse from [facility] will arrive to Hospital around 10:00 a.m. to do bedside teaching, will deliver supplies tomorrow. Update to [facility] on discharge
plan.
Original Note:
CM reviewed chart, CM spoke with MORRIS Farah from [facility]. Per Naomi, patient will be discharging to parents home in [place] ([address] [place]) until Saturday, patient will then move to [address] (through [facility]) until he returns home to original address. Naomi requesting [facility] to come to hospital tomorrow am for teaching. Naomi reports patients parents are working to arrange a first floor bedroom at their home which will not be set up by
today, TT to Hospitalist with update. JANIE spoke with Papito from [facility], relayed plan with request for [facility] to come to hospital tomorrow am for teaching, deliver to parents home. Papito will pass message along to team and call CM back with
an answer. CM will call Naomi CACERES back once update received from [facility]. CM spoke with shama Kraft from [facility] with updates- will confirm start of care for . CM will continue to follow for all discharge planning needs.
Plan; discharge tomorrow to parents home in [place] with [facility], then transition to [facility] Saturday. Await confirmation for teaching form [facility]
[2025-02-16 12:30] VITALS: O2SAT 97
[2025-02-16 13:05] VITALS: BP 116/71; PULSE 83; O2SAT 97
[2025-02-16 15:00] VITALS: BP 114/74
[2025-02-16] MEDS: STERILE WATER FOR INJECTION 20 ML IV (15:39)
[2025-02-16] MEDS: ROCEPHIN 2000 MG IV (15:39)
[2025-02-16 23:40] VITALS: BP 100/63
[2025-02-17] MEDS: SYNTHROID 137 MCG PO (06:33)
[2025-02-17 07:20] VITALS: BP 104/70
[2025-02-17] MEDS: COLCHICINE 0.6 MG PO (07:29)
[2025-02-17] MEDS: HEPARIN 5000 UNITS SC (07:29)
[2025-02-17] MEDS: PROTONIX 40 MG PO (07:29)
[2025-02-17] MEDS: NON-FORMULARY ITEM 27 MG PO (07:30)
--- NOTE | 2025-02-17 08:39 | W.PN.ID1 ---
Date of Service
Date of Service: February 17, 2025
Today's Communication
Continue antibiotics
Assessment / Plan
Right lower lobe pneumonia
Parapneumonic effusion
- s/p CT
Leukocytosis
Thrombocytosis
Hx Down's syndrome
Thyroid disease
Gout
Hx GERD
Recommendations:
Continue ceftriaxone 2 g IV every 24 hours (d#14 abx)
Patient will require 6-week course of antibiotics. Home infusion sheet placed on paper chart.
PICC line placed.
Continue to monitor white count and temperature curve.
F/U imaging in 4-6 weeks.
Will F/U in office in 2-3 weeks
����������������������������������������������������������
Chief Complaint
-: Pneumonia and Other (Parapneumonic effusion)
Subjective / Review of Systems
Review of Systems: No Fever and No Chills
Vital Signs / Physical Exam
Vital Signs
Vital Signs
Temp Pulse Resp BP Pulse Ox
97.9 F 64 16 104/70 98
02/17/25 07:20 02/17/25 07:20 02/17/25 07:20 02/17/25 07:20 02/17/25 07:20
Physical Exam
Constitutional: No Acute Distress, Comfortable and Non-toxic
Eyes: Sclera Anicteric
Cardiovascular: S1/S2; Negative S3/S4
Pulmonary: Coarse and Non Labored; Negative Wheezes or Rhonchi
Gastrointestinal: Soft, Non Tender and Non Distended
Extremities: Negative Cyanosis or Erythema
Neurological: Awake and Alert
Psychological: Calm
Objective Data
Lab Data
Lab Results
02/15/25 06:30
02/15/25 06:30
Estimated Creat Clear 67 ml/min 02/15/25 06:30
Lactic Acid 0.8 mmol/L (0.7-2.0) 02/04/25 07:35
Total Bilirubin 0.7 mg/dl (0.2-1.3) 02/04/25 05:17
AST 23 U/L (17-59) 02/04/25 05:17
ALT 23 U/L (0-50) 02/04/25 05:17
Alkaline Phosphatase 83 U/L (38-126) 02/04/25 05:17
Most recent labs reviewed.
Micro Results:
02/08/25 15:35 Body Fluid Culture - Final
Pleural Fluid No Growth After 72 Hours
Gram Stain - Final
02/04/25 07:35 Blood Culture - Final
Blood/Venous No Growth - Final Report
02/04/25 07:33 Blood Culture - Final
Blood/Venous No Growth - Final Report
02/05/25 04:56 MRSA Screen - Final
Nose No Methicillin Resistant Staphylococcus aureus isolated.
02/04/25 06:29 Urine Culture - Final
Urine NO GROWTH
02/04/25 05:24 Influenza Types A & B (POPEYE) - Final
Nasal Swab Negative for Influenza A & B, NAAT
Negative results must be combined with clinical observations
and patient history.
Nucleic Acid Amplification test (NAAT)performed on the
[employer] NOW platform.
Imaging:
02/16/25 CXR (portable): Right-sided PICC line seen in the SVC. No additional interval changes noted. Ongoing opacification of the right lower chest is without significant change.
02/15/25 CXR (portable): Right basilar pigtail chest tube in stable position. Low lung volumes noted. Bibasilar opacification, right greater than left, is without significant change. No pneumothorax seen. Please see full dictation for additional
detail.
02/04/25 CT chest with contrast: Severe right lower lobe pneumonia containing a central 3.4 cm pulmonary abscess. New mild to moderate acute interstitial and alveolar pulmonary edema. New small right pleural effusion noted. Mildly decreased
bilateral lung volumes. Please see full dictation for additional detail.
--- NOTE | 2025-02-17 09:47 | W.PN.HOSP.TC ---
Today's Communication/Plan
-
dc
Assessment / Plan
Assessment / Plan
Physical Exam
General: No Apparent Distress and Comfortable
HEENT: Moist mucous membranes and Atraumatic
Respiratory: diminished breath sound right lung. +chest tube
Cardiac: S1/S2
GI: Soft, Non Tender and Non Distended
Genito-urinary: No Membreno
Musculoskeletal: No Edema
Neuro: Alert and Oriented
Psych: Calm; No Agitated
44 years old male with Down syndrome presented with right sided pneumonia
# Sepsis, Septic shock ( mild) present on admission with tachycardia, leukocytosis and pneumonia.
# Community-acquired pneumonia
Right lower lobe necrotizing pneumonia with intrapulmonary abscess
Resolving
c/w IV Rocephin 2 gm for total 6 weeks.
Speech evaluated twice, c/w regular diet
Negative COVID and influenza screen
Blood culture NGTD
Negative MRSA
pleuritic chest pain has resolved.
No hypoxia
Appreciate ID and pulmonary recommendations
Order pic line 02/16 , right arm, no swelling
Acute hypoxic respiratory failure likely secondary to right lower lobe necrotizing pneumonia with intrapulmonary abscess
resolved.
# Pleuritic chest pain
Resolved.
# Right Empyema s/p chest tube
S/p IR guided drainage on 02/08. s/p chest tube was placed 02/08, removed 02/15.
Fluid pH 7.08, LDH of 2500, protein 4.1, consistent with exudate. Cultures negative so far
Status post tPA/DNase through chest tube, 02/09. 2nd dose 02/10.
Chest x-ray 02/15/2025: Likely small pleural effusion with subsegmental atelectasis/infiltrate. No worse than prior and low output < 10cc.
Pulmonary doctor recommended radiographic follow up in the outpx setting in next few weeks.
# GERD, PPI
history of Polo's esophagus, Schatzki ring s/p esophageal dilation and chronic PPI therapy. Video swallow 02/15 was done, continue with regular solids and thin liquids.
# Hypothyroidism, continue Synthroid
# Down syndrome/ Attention and concentration deficit
Continue home medications
# Gout, continue colchicine
Total discharge time spent to see the patient, examine the patient, review data and lab results, discuss discharge plan with patient and nursing staff around 65 minutes
Anticipated Discharge: Today
Subjective/Interval History
-
Date of Service: February 17, 2025
No cough
No fever
No hypoxia
Objective Data
-
Vital Signs:
Vital Signs
Temp Pulse Resp BP Pulse Ox
97.9 F 64 16 104/70 98
02/17/25 07:20 02/17/25 07:20 02/17/25 07:20 02/17/25 07:20 02/17/25 07:20
I&O
02/16/25 02/17/25 02/18/25
06:59 06:59 06:59
Intake Total 100 / 100 1200 / 1200
Output Total 300 / 300
Balance -200 / -200 1200 / 1200
--- NOTE | 2025-02-17 11:46 | CM ---
CM reviewed chart, patient seen bedside with mother, MORRIS Salgado from [facility], and team members from [facility] for bedside teaching. Patient for discharge today after IV antibiotic dose received. CM confirmed with [facility], patient
scheduled for start of care visit tomorrow. Naomi from [facility] requesting discharge paperwork faxed upon discharge. IMM reviewed with mother, signed, placed in chart. CM will continue to follow for all discharge planning needs.
Plan; discharge to parents home with Zachary Joesph, [facility], [facility]: [phone]
[facility]: [phone]
[2025-02-17 13:16] VITALS: BP 104/69
--- NOTE | 2025-02-17 13:36 | W.DCSUMMARY ---
Discharge Summary
Discharge Data
Date of Admission: 02/04/25
Date of Discharge: 02/17/25
-
Pending Results: No
Hospital Course
44 years old male admitted with cough and shortness of breath. Patient had right pleuritic chest pain. Imaging studies of the chest showed right lower lobe pneumonia with evolving pulmonary abscess. Patient was admitted to the hospital. He was
started on intravenous antibiotic. Patient did not have significant hypoxemia. Patient was followed by pulmonary doctor. Subsequent imaging studies showed parapneumonic effusion. Patient had chest tube that subsequently removed. He did not need
oxygen supplementation. Cultures including blood culture did not show any growth. Infectious disease doctor recommended 6-week course of antibiotics. Patient tolerated intravenous ceftriaxone daily dose. Patient remained hemodynamically stable.
He was discharged home in stable condition. Patient received PICC line right upper extremity.
Discharge Plan
-
Patient Disposition: Home with Home Care
Discharge Diagnosis/Procedures: Right lower lobe pneumonia
Suspected evolving pulmonary abscess
Parapneumonic effusion
Diet: As tolerated
Referrals:
Liane Irwin MD [Active] - in three to four weeks
Susie Cabrera DO [Family Provider] -
Prescriptions:
New
ceftriaxone 2 gram Recon Soln
2,000 mg IV Q24H Qty: 25 0RF
Continued
levothyroxine 137 mcg tablet
137 mcg PO MOTUWETHFRSA
ascorbic acid (vitamin C) [Vitamin C] 500 mg Tablet
500 mg PO DAILYPRN PRN (Reason: when feeling ill)
carbamide peroxide 6.5 % Drops
2 drp EACH EAR TIDPRN PRN (Reason: ear wax)
colchicine 0.6 mg tablet
0.6 mg PO DAILY
ketoconazole 2 % Cream
1 applic TOPICAL BIDPRN PRN (Reason: for flares until clear)
Patient Comments:
Seborrheic Dermatitis
methylphenidate HCl 27 mg tablet extended release 24hr
27 mg PO DAILY
cholecalciferol (vitamin D3) 50 mcg (2,000 unit) Tablet
50 mcg PO DAILY
calcium citrate-vitamin D3 200 mg-6.25 mcg (250 unit) tablet
1 tab PO NOON
omeprazole
20 mg PO
Discharge Orders:
Discharge Patient (As Directed); Ordered 02/16/25
Ordered By: Herminia Hirsch
Discharge Date and Time
Discharge Date/Time: 02/17/25 15:06
Print Language: GABONESE
[2025-02-17] MEDS: STERILE WATER FOR INJECTION 20 ML IV (14:11)
[2025-02-17] MEDS: ROCEPHIN 2000 MG IV (14:11)
== END 2025-02-17 15:06 | disposition home health service (06) | DRG 871 ==
LOC: 4 WEST ACU 08:33
PROVIDERS: Internal Medicine; Physician Assistant; Radiology Diagnostic Radiology; Radiology Vascular & Interventional Radiology; ADMITTING PHYSICIAN Internal Medicine; CONSULT PHYSICIAN Internal Medicine; CONSULT PHYSICIAN Internal Medicine Infectious Disease; EMERGENCY PHYSICIAN Emergency Medicine; FAMILY PHYSICIAN Family Medicine
PROC: 0W9930Z Drainage of Right Pleural Cavity with Drainage Device, Percutaneous Approach (ICD-10-PCS; 2025-02-08)
PROC: 3E0L317 Introduction of Other Thrombolytic into Pleural Cavity, Percutaneous Approach (ICD-10-PCS; 2025-02-09)
PROC: 02HV33Z Insertion of Infusion Device into Superior Vena Cava, Percutaneous Approach (ICD-10-PCS; 2025-02-16)
DX: A41.89 Other specified sepsis (principal); J85.0 Gangrene and necrosis of lung; J85.1 Abscess of lung with pneumonia; R65.21 Severe sepsis with septic shock; J96.01 Acute respiratory failure with hypoxia; J91.8 Pleural effusion in other conditions classified elsewhere; E87.3 Alkalosis; Q90.9 Down syndrome, unspecified; K21.9 Gastro-esophageal reflux disease without esophagitis; R11.0 Nausea; E03.9 Hypothyroidism, unspecified; M10.9 Gout, unspecified; E78.00 Pure hypercholesterolemia, unspecified; F90.9 Attention-deficit hyperactivity disorder, unspecified type; K22.70 Barrett's esophagus without dysplasia; K22.2 Esophageal obstruction; D75.839 Thrombocytosis, unspecified; Z11.52 Encounter for screening for COVID-19
CPT/HCPCS: 88305; 32557; 32561; 32562; 71045; 71250; 71260; 71275; 74176; 74230; 76700; 80048; 80053; 81003; 81015; 82565; 82805; 82962; 83605; 83615; 83690; 83880; 83986; 84155; 84157; 84484; 84520; 85025; 85027; 87015; 87040; 87070; 87086; 87205; 87502; 87811; 88112; 89051; 92610; 92611; 93005; 96361; 96374; 96375; 97163; 97167; 99152; 99153; 99285; C1729; C1769; J2997; Q9967

== ENCOUNTER 2025-02-23 21:54 | Emergency (ER) | payer MEDICARE, MEDICAID, SELFPAY ==
[2025-02-23 21:55] VITALS: BP 122/80
--- NOTE | 2025-02-23 23:22 | ED.GENMED ---
History of Present Illness
General
Chief Complaint: Head Injury
Source: patient
Exam Limitations: none
Time Seen by Provider: 02/23/25 23:21
Nursing documentation reviewed up to this point in time: agreed with
History of Present Illness
History of Present Illness:
This is a 44-year-old male with a past medical history of Down syndrome, GERD, hypothyroidism, ADHD, who presents emergency department today with concerns of a head injury. Patient was at [facility] today and is present in the ER with his
java engineer and family member. Patient is a limited historian at baseline. Forensic Economist reports that he was watching a movie with his friend when he became excited and starting hoping up and down on his chair that was positioned against the wall when
he accidently swung his head back and hit the back of his head on the wall. Patient did not loose consciousness or fall to the ground. At this time, he denies headache, neck pain, nausea, vomiting, visual changes. He denies any other injuries.
Past History
Past History
ED Past Medical History: Hyperthyroidism and Other (Down syndrome)
ED Past Surgical History: None and Tonsilectomy
Social History
Tobacco: Non-smoker
Review of Systems
Review of Systems
All Other Systems: ROS reviewed and negative except as documented in HPI and ROS
Phy Exam
Physical Exam
Physical Exam:
General: Patient is well appearing and in no acute distress; non-toxic
Skin: Warm and dry, no rashes or lesions
Head: Normocephalic, atraumatic, no palpable hematomas of the scalp
Eyes: Sclera non-icteric. EOMs intact.
Neck: No midline spinal tenderness
Cardiac: Regular rate
Pulm: Normal respiratory effort
Neuro: CN II-XII intact, no focal neurologic deficits.
Psychiatric: Appropriate mood and affect.
Course
Vital Signs
Initial and Last Documented VS:
Initial Vital Signs
Temp Pulse Resp BP Pulse Ox
98.1 F 75 16 122/80 98
02/23/25 21:55 02/23/25 21:55 02/23/25 21:55 02/23/25 21:55 02/23/25 21:55
Last Documented Vital Signs
Temp Pulse Resp BP Pulse Ox
98.1 F 75 16 122/80 98
02/23/25 21:55 02/23/25 21:55 02/23/25 21:55 02/23/25 21:55 02/23/25 21:55
MDM/Problems Addressed
Differential Diagnosis Includes:
ddx include concussion, contusion, tension headache
MDM/Problems Addressed:
This is a 44-year-old male with a past medical history of Down syndrome, GERD, hypothyroidism, ADHD, who presents emergency department today with concerns of a minor head injury. He hit his head while he was sitting in a chair at [facility]
watching a movie. He did not fall to the ground hit his head. Did not lose consciousness. He has no medical complaints at this time, denies any headaches, dizziness, lightheadedness, nausea or vomiting. On physical exam he is well-appearing no
acute distress he has no focal neurologic deficits, no signs of head or neck trauma. No occasion for CT imaging at this time. Patient stable for discharge.
*Pulse Oximetry
Patient hypoxic: no
*Critical Care Note
Total Time (30-74mins, 75-104mins- exclusive of procedures): Not Applicable
Data Reviewed
Review of Other/Old Records Reveals: Records (Reviewed discharge summary from 02/17/2025 patient seen for abscess of lung, currently has PICC line in place)
Source: patient and records
ED Attending Note
-
Portions of this chart may have been created with voice recognition software.� Occasional wrong word or��sound alike� substitutions may have occurred due to the inherent limitations of voice recognition software.
Discharge Plan
Departure
Patient Disposition: Home (Routine Discharge)
Date of Disposition: 02/23/25
Time of Disposition: 23:30
Patient with high blood pressure during this ER visit?: No
Condition: Good
Discharge Problem:
Head injury
Instructions: Head Injury in Adults (DC), Minor Head Injury (DC)
Prescriptions:
No Action
levothyroxine 137 mcg tablet
137 mcg PO MOTUWETHFRSA
ascorbic acid (vitamin C) [Vitamin C] 500 mg Tablet
500 mg PO DAILYPRN PRN (Reason: when feeling ill)
carbamide peroxide 6.5 % Drops
2 drp EACH EAR TIDPRN PRN (Reason: ear wax)
colchicine 0.6 mg tablet
0.6 mg PO DAILY
ketoconazole 2 % Cream
1 applic TOPICAL BIDPRN PRN (Reason: for flares until clear)
Patient Comments:
Seborrheic Dermatitis
methylphenidate HCl 27 mg tablet extended release 24hr
27 mg PO DAILY
cholecalciferol (vitamin D3) 50 mcg (2,000 unit) Tablet
50 mcg PO DAILY
calcium citrate-vitamin D3 200 mg-6.25 mcg (250 unit) tablet
1 tab PO NOON
omeprazole
20 mg PO
ceftriaxone 2 gram Recon Soln
2,000 mg IV Q24H Qty: 25 0RF
Referrals:
Susie Cabrera DO [Family Provider] -
Activity Restrictions/Additional Instructions:
Please follow up with your primary care provider.
PLEASE RETURN TO THE EMERGENCY DEPARTMENT SHOULD YOU DEVELOP LIGHTHEADEDNESS, DIZZINESS, VISUAL CHANGES, INTRACTABLE NAUSEA OR VOMITING, NECK PAIN, CHEST PAIN, SHORTNESS OF BREATH, WEAKNESS ONE-SIDED BODY VERSUS OTHER, DIFFICULTY AMBULATE, OR ANY
OTHER SIGNS OR SYMPTOMS WORRISOME TO YOU.
Interventions
Interventions:
*Risk Screen - Suicide Last Done: 02/23/25 23:18
*General Assessment Last Done: 02/23/25 23:18
*Neglect/Abuse Screening Last Done: 02/23/25 23:18
*ED- Fall Risk Assessment Last Done: 02/23/25 23:18
*ED COVID-19 Vaccine History Last Done: 02/23/25 23:18
*Nursing Disposition Last Done: 02/23/25 23:34
ED- Neurological Assessment Last Done: 02/23/25 23:19
ED-Skin Assessment Last Done: 02/23/25 23:19
Discharge Date and Time
Discharge Date/Time: 02/23/25 23:34
Print Language: MAORI
== END 2025-02-23 23:34 | disposition home or self-care (01) ==
LOC: EMR 21:54
PROVIDERS: EMERGENCY PHYSICIAN Student in an Organized Health Care Education/Training Program; FAMILY PHYSICIAN Family Medicine
DX: S09.90XA Unspecified injury of head, initial encounter (principal); W22.09XA Striking against other stationary object, initial encounter; E03.9 Hypothyroidism, unspecified; F90.9 Attention-deficit hyperactivity disorder, unspecified type; Q90.9 Down syndrome, unspecified
CPT/HCPCS: 99282

== ENCOUNTER → 2025-03-12 12:44 | Outpatient (REF) | payer MEDICARE, MEDICAID, SELFPAY | LOC: HWRAD 12:44 | PROVIDERS: ATTENDING PHYSICIAN Nurse Practitioner Adult Health; FAMILY PHYSICIAN Family Medicine | DX: J90 Pleural effusion, not elsewhere classified (principal) | CPT/HCPCS: 71046 ==

== ENCOUNTER → 2025-04-05 14:57 | Outpatient (REF) | payer MEDICARE, MEDICAID, SELFPAY | LOC: DHSLP 14:57 | PROVIDERS: ATTENDING PHYSICIAN Internal Medicine; FAMILY PHYSICIAN Family Medicine | DX: G47.33 Obstructive sleep apnea (adult) (pediatric) (principal) | CPT/HCPCS: 95800 ==

== ENCOUNTER → 2025-04-07 10:38 | Outpatient (REF) | payer MEDICARE, MEDICAID, SELFPAY | LOC: HWRAD 10:38 | PROVIDERS: ATTENDING PHYSICIAN Nurse Practitioner Adult Health; FAMILY PHYSICIAN Family Medicine | DX: J85.1 Abscess of lung with pneumonia (principal); J90 Pleural effusion, not elsewhere classified | CPT/HCPCS: 71250 ==

== ENCOUNTER 2025-08-27 06:11 | Day surgery (SDC) | payer MEDICARE, MEDICAID, SELFPAY ==
[2025-08-27 13:07] VITALS: BMI 27.6
[2025-08-27 13:15] VITALS: BMI 27.6
[2025-08-27 13:36] VITALS: BP 139/77
[2025-08-27 15:15] VITALS: BP 120/76
[2025-08-27 15:30] VITALS: BP 133/71
[2025-08-27 15:45] VITALS: BP 157/120
[2025-08-27 15:46] VITALS: BP 147/84
--- NOTE | 2025-08-31 08:18 | OR.RPT ---
Operative Report
Operative Report
Patient name: Marty Hood
Date of : 1980

Date of operation: 08/27/2025
Preoperative diagnosis: Severe JULIAN, intolerance
Postoperative diagnosis: Severe JULIAN, CPAP intolerance
Operation/procedures performed: Drug-induced sleep endoscopy
Surgeon: Cristian Dukes DO
Anesthesia: General, propofol
Anesthesiologist: See anesthesia report
Surgical Indications: This is a 45-year-old man with trisomy 21 who has severe obstructive sleep apnea and CPAP intolerance. I discussed several management options outside of CPAP which included upper airway surgery and hypoglossal nerve
stimulation. He is here today for a drug-induced sleep endoscopy for further assessment of the airway. Informed written consent was obtained from the patient, the caregiver and the parents.
Details of Procedure: This patient was met in the preoperative holding area where all questions were answered and informed written consent was reviewed. He was brought back to the GI suite on the stretcher and positioned semireclined. A surgical
timeout was performed confirming the necessary perioperative information. A propofol bolus was given followed by propofol. That was slowly titrated to prevent oversedation. Once the patient was mildly sedated, a 4 mm slim bronchoscope was
advanced through the right nasal cavity and positioned to view the velum.
V-severe primarily anterior posterior collapse at the velum
O- no substantial lateral wall collapse. No circumferential collapse
T-enlarged tongue base mild obstruction
E- no obstruction. No retroflexion or inversion
Long, sustained witnessed apneas were visualized where the velum and oropharynx collapsed to the anterior posterior fashion. Witnessed oxygen maribel 45%. This concluded the procedure and the patient tolerated it well. These findings deem him an
acceptable candidate for hypoglossal nerve stimulation.
The patient then emerged slowly from his sedation and was taken to the PACU in safe condition.
Complications: None
Blood loss: None
Disposition: Stable to PACU followed by discharge to home.
== END 2025-08-27 16:00 | disposition home or self-care (01) ==
LOC: SDS 06:11
PROVIDERS: ATTENDING PHYSICIAN Student in an Organized Health Care Education/Training Program
DX: G47.33 Obstructive sleep apnea (adult) (pediatric) (principal); Q90.9 Down syndrome, unspecified
CPT/HCPCS: 42975

== ENCOUNTER 2025-09-13 06:18 | Day surgery (SDC) | payer MEDICARE, MEDICAID, SELFPAY ==
[2025-09-13] VITALS (8 sets, daily range): BP systolic 96–140; BP diastolic 61–93; BMI 24.8; BMI 27.6
--- NOTE | 2025-09-13 16:15 | OR.RPT ---
Operative Report
Operative Report
Patient name: Marty Hood
Date of : 1980

Date of operation: 09/13/2025
Preoperative diagnosis: JULIAN on CPAP; CPAP intolerance (Z78.9); BMI 24.8 (Z68.24)
Postoperative diagnosis: JULIAN on CPAP; CPAP intolerance (Z78.9); BMI 24.8 (Z68.24)
Operation/procedures performed: Hypoglossal nerve stimulator implant (Inspire procedure)
Surgeon: Cristian Dukes DO
Anesthesia: General, ETT
Anesthesiologist: Pk
Surgical Indications: This is a 45-year-old man with Trisomy 21 and severe obstructive sleep apnea who was prescribed CPAP which has failed him in his treatment. He has been unable to tolerate CPAP due to mask constraints, claustrophobia as well as
behavioral difficulties tolerating the mask. He was seen in the otolaryngology office for evaluation of CPAP alternatives and underwent a drug-induced sleep endoscopy. This demonstrated predominantly anterior posterior collapse at the velum and
oropharynx and a lack of complete concentric collapse. Based on his severe obstructive sleep apnea and AHI less than 65, adult status, BMI 24.8 and favorable drug-induced sleep endoscopy characteristics, and recommendation was made for hypoglossal
nerve stimulator implant. The risks benefits and alternatives of this procedure were discussed with him and his family and everyone provided informed written consent.
Details of Procedure: The patient was met in the preoperative holding area where informed written consent was reviewed and all questions were answered. The patient was then brought back to the operating room and transferred supine the operating
room table. General anesthesia was induced and the patient was intubated orotracheally by the anesthesia team without difficulty. The tube was secured to the left corner of the mouth. 2 safety straps were placed. Table was rotated 90 degrees
away from anesthesia. A shoulder roll was avoided to minimize chance of cervical spine injury in the setting of trisomy 21 and instead the operating room table was adjusted to maximize surgical exposure. The neck incision was marked out beginning
1 cm to the right of midline and about 1 fingerbreadth below the mandible. A 5 cm incision was marked out. The chest incision was marked out in between the 2nd and 3rd intercostal space approximately 3 cm lateral to the lateral border of the
sternum. A 5 cm incision was marked. Both incisions were then infiltrated with 1% lidocaine with epinephrine 1 100,000, 5 cc were used in each incision. Next a grounding electrode was placed in the left deltoid. A red bipolar electrode was
placed in the right lateral aspect of the tongue for hypoglossal this muscle monitoring and a blue electrode was placed in the floor of the mouth lateral to the submandibular duct papilla and adjacent to the lingual cortex of the mandible in order
to monitor genioglossus muscle. Next the neck and chest were sterilely prepped using Betadine solution. The patient was then draped in sterile fashion and a 1010 drape was placed over the face to allow for intraoperative visualization of tongue
motion once the implant is placed. This was then followed by Ioban wrapping over the surgical field.
A surgical timeout was then performed confirming the necessary perioperative information. Once all parties were in agreement then a #15 blade was used to make an incision through the skin and dermis in the neck. Monopolar Bovie cautery on a
setting of 25 coag was used to divide and coagulate the subcutaneous fat until the platysma was visualized. A hemostat was used to dissect subplatysmal he and once confirming that that region of platysma was free of the marginal mandibular nerve,
the platysma was divided using monopolar cautery. Next a combination of blunt dissection with a gloved finger, sponge and hemostat proceeded to find the anterior belly of the digastric. Once this was located dissection then continued distally
toward the digastric inner tendon. Once the inner tendon was visualized and confirmed to be separate from the hypoglossal nerve, to, 2-0 silk sutures were placed for retraction and eventual securing of the electrode cuff. Next a weightman a
retractor was placed to retract the subcutaneous tissues. Then an arm [employer] retractor was used to pull the submandibular gland posteriorly. Dissection then proceeded posteriorly to find the posterior border of the mylohyoid muscle. Once this was
identified a second [employer] retractor was used to pull the mylohyoid muscle anteriorly. This brought the hypoglossal nerve and brain and veins and the visualization. A Godoy retractor was then placed to retract the anterior belly and
intertendon of the digastric inferiorly and the submandibular gland lateral and posteriorly. Additional fascia was cleaned off of the hypoglossal nerve and the C1 branch, suspected inclusion branch and the suspected exclusion branches were
visualized. Bipolar stimulating nerve probe was used to confirm these branches of the hypoglossal nerve. Additional dissection was required to separate the small inclusion branches on the superior and superoposterior aspects of the hypoglossal
nerve inclusion branch. Once the suspected inclusion branch was isolated, and a vessel loop was placed around this for gentle retraction and again the bipolar stimulating nerve probe was used to confirm that there were no exclusion branches on the
nerve. Additional dissection was required distally along the nerve to isolate and ligate a small crossing ranine vein to allow for adequate length of inclusion branch for intended cuff placement. Once the proper segment of the hypoglossal nerve was
identified, the electrocautery was brought to the operating room field and positioned around the inclusion branch. Once the 3 electrodes were felt to be in good proximity and contact to the nerve, the nerve cuff was irrigated with sterile saline
using an Angiocath tip. Next the electrode wire was secured to the inner tendon of the digastric using the previously placed silk sutures.
Next attention was turned to the chest where a #15 blade was used to incise skin and dermis. Bovie monopolar cautery was used to divide the subcutaneous fat and additional tissue until the fascia of the pectoralis major muscle was visualized. A
combination of blunt finger and sponge dissection along with hemostat was used to make a supra-pectoralis major fascia pocket for the pulse generator. Once hemostasis was confirmed, 2-0 silk sutures were then placed into the pectoralis major fascia
which will be used later to secure the pulse generator. Then a subplatysmal tunnel was started with a Deborah dissector and followed with the [employer] tunneler device. This was done from the neck incision subplatysmaly inferiorly down the neck,
supraclavicular and into the chest to exit the chest wound. The electrode wire was then attached to the proximal end of the tunneler and the tunneler was pulled through the tunnel to deliver the wire into the chest 1. The wire was cleaned off, and
then attached to the pulse generator. The pulse generator was then placed into its pocket above the pectoralis major muscle. Testing was then performed and there was a robust response at 1.5, and a weak response at 1.0. The neck wound was then
reentered and the electrode cuff was irrigated with sterile saline. Testing was then reperformed beginning at 1.5 which showed a robust response, a great response was then seen at 1.0 and then a great response at 0.7. Additional electrode on off
configurations were then done and electrode configuration B did not resolve much change but electrode configurations C and D resulted in very robust responses. This concluded testing. The pulse generator was then secured using the 2-[address] Both wounds were closed with 3-0 Vicryl suture in a simple interrupted inverted fashion, followed by 5-0 plain gut suture in a simple running fashion. Remaining Betadine prep was cleared off the skin and then dried. Mastisol
Steri-Strips Telfa pad and Tegaderm tape were used to dress the wounds.
This concluded the procedure. The patient was then rotated back to the anesthesia team where he emerged safely from anesthesia and was taken to the PACU in stable condition.
In PACU, a neck and chest XR portable were obtained to document pulse generator and electrode placement and position.
Complications: None immediately present
Blood loss: 5cc
Disposition: Stable to PACU followe by d/c to home
== END 2025-09-13 15:44 | disposition home or self-care (01) ==
LOC: SDS 06:18
PROVIDERS: ATTENDING PHYSICIAN Student in an Organized Health Care Education/Training Program
DX: G47.33 Obstructive sleep apnea (adult) (pediatric) (principal); Z68.24 Body mass index [BMI] 24.0-24.9, adult
CPT/HCPCS: 64582; 70360; 71045